=== PATIENT | female | born 1925 | race Caucasian/White ===

== ENCOUNTER 2016-04-01 00:17 | Inpatient (IN) ==
--- NOTE | 2016-04-01 00:41 | Emergency Department Note ---
Disposition Clinical Impression: Acute renal insufficiency Disposition: Admitted As Inpatient Condition: Fair Referrals: NO,PCP [Non-Partnered Physician] - Forms: ED Satisfaction Letter Time of Disposition: 03:58 Dizziness HPI - General Chief Complaint: ED Dizziness Stated Complaint: dizziness Time Seen by Provider: 04/01/16 00:27 Source: patient, EMS Limitations: age Nursing Notes Reviewed: Yes Vital Signs Reviewed: Yes - History of Present Illness HPI Narrative: 89-year-old nontoxic-appearing female was brought to the emergency department by EMS for complaints of presyncope. Patient states that just prior to arrival , she got up to go to the bathroom, when she had a sudden sensation that she "may end up falling down". She states that she had to reach out to grab a hold of the bathroom counter to keep from falling. Patient denies any chest pain, shortness of breath, palpitations, fever, chills, abdominal pain, nausea, vomiting, diarrhea. Patient denies any recent illnesses other than a recent, mild and intermittent nonproductive cough. Patient denies any headache. Patient states "I live alone and I am starting to get scared of living by myself ". 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 Timing: sudden onset Severity: mild Improves with: nothing Worsens with: nothing Associated symptoms: Reports: denies other symptoms - Related Data Home Medications Medication Instructions Recorded Confirmed Amiodarone [Cordarone] 200 mg PO DAILY #0 12/09/14 10/29/15 Aspirin Enteric Coated [Aspirin EC] 81 mg PO DAILY #0 12/09/14 10/29/15 Cholecalciferol (D-3) [Vitamin D] 1,000 unit PO DAILY #0 12/09/14 10/29/15 Docusate [Colace] 100 mg PO DAILY PRN #0 12/09/14 10/29/15 Ferrous Sulfate 325 mg PO BIDWM #0 12/09/14 10/29/15 Furosemide [Lasix] 20 mg PO DAILY #0 12/09/14 10/29/15 Potassium Chloride [K-Tab ER] 10 meq PO DAILY #0 12/09/14 10/29/15 Tiotropium [Spiriva] 18 mcg IH 0700 #0 12/09/14 10/29/15 ClonazePAM [Klonopin] 0.5 mg PO HS 10/29/15 10/29/15 Fluticasone Propionate Nasal 1 spray NS DAILY 10/29/15 10/29/15 [Flonase] Levalbuterol [Xopenex INH] 1 puff IH Q4H 10/29/15 10/29/15 Loratadine [Claritin] 10 mg PO DAILY 10/29/15 10/29/15 Losartan [Cozaar] 25 mg PO DAILY 10/29/15 10/29/15 Ranitidine HCl [Heartburn Relief] 150 mg PO DAILY 10/29/15 10/29/15 Allergies Allergy/AdvReac Type Severity Reaction Status Date / Time levofloxacin [From Levaquin] Allergy Rash Verified 10/29/15 12:38 gabapentin AdvReac Dizziness Verified 10/29/15 12:38 lisinopril AdvReac Cough Verified 10/29/15 12:38 All systems ED: reviewed and negative except as stated. Constitutional: Denies: fever, chills, weakness, weight change Cardiovascular: Denies: chest pain, palpitations, dyspnea on exertion, edema, syncope Respiratory: Denies: cough, dyspnea, wheezes, hemoptysis, stridor Gastrointestinal: Denies: abdominal pain, nausea, vomiting, diarrhea, constipation, hematemesis, melena, hematochezia Genitourinary: Denies: dysuria, frequency, hematuria, discharge Musculoskeletal: Denies: back pain, neck pain, arthralgia, myalgia Integumentary: Denies: rash, abrasion, lesions Neurological: Reports: as per HPI, other (Presyncope) Psychiatric: Denies: anxiety, depression, suicidal thoughts, homicidal thoughts , auditory hallucinations, visual hallucinations Endocrine: Denies: fatigue Hematological/Lymphatic: Denies: easy bleeding, easy bruising Past Medical History - Past Medical History Attestation: Yes The following information was validated with the patient. Source: patient Medical history: Reports: arthritis, atrial fibrillation, cardiomyopathy, CHF, COPD, GERD, GI bleed, hypertension, osteoporosis, renal disease, thyroid disease , other Surgical history: Reports: colectomy, hip replacement, orthopedic, other Psychiatric history: Reports: anxiety SCIENTIFIC INFORMATICS LEADER history: Reports: no SCIENTIFIC INFORMATICS LEADER history - Social History Smoking Status: Never smoker Smokeless Tobacco Status: No Alcohol use: Reports: none Drug use: Reports: none Physical Exam - General Limitations: age General appearance: alert - Head Head exam: atraumatic, normocephalic, normal inspection - Eye Eye exam: Present: normal appearance, PERRL, EOMI. Absent: nystagmus - ENT ENT exam: mucous membranes moist - Neck Neck exam: Present: normal inspection, full ROM, trachea midline - Chest Chest inspection: Present: normal inspection, symmetric chest wall rise - Respiratory Respiratory exam: Present: normal lung sounds bilaterally. Absent: respiratory distress, wheezes, stridor, accessory muscle use, prolonged expiratory phase - Cardiovascular Cardiovascular exam: Present: regular rate, normal rhythm, normal heart sounds - Abdominal Exam Abdominal exam: Present: soft, Non-Tender, normal bowel sounds. Absent: tenderness, distention, guarding, rebound, rigidity - Extremities Exam Extremities exam: Present: normal inspection, full ROM, pedal edema (1+ pretibial edema, 2+ pedal edema Patient states is normal for her). Absent: tenderness - Neurological Exam Neurological exam: Present: alert, oriented X3 - Psychiatric Psychiatric exam: Present: normal affect, normal mood - Skin Skin exam: Present: warm, dry, intact, normal color. Absent: rash, cyanosis, diaphoresis, erythema, pallor, mottled Course Course Narrative: I discussed this case with Dr. Crowell. Dr. Crowell had a [id number] evaluation with the patient. Dr. Crowell recommends admission to the hospitalist service. 0350: I spoke with Dr. Martinez of the hospitalist service. Dr. Martinez accepts the patient for admission for further evaluation of acute renal insufficiency. Vital Signs Temperature 99.9 F H 04/01/16 00:19 Pulse Rate 70 04/01/16 00:19 Respiratory Rate 18 04/01/16 00:19 Blood Pressure 160/60 04/01/16 00:19 O2 Sat by Pulse Oximetry 96 04/01/16 00:19 Temperature 99.9 F H 04/01/16 00:19 Pulse Rate 62 04/01/16 00:49 Respiratory Rate 18 04/01/16 00:49 Blood Pressure 164/58 04/01/16 00:49 O2 Sat by Pulse Oximetry 95 04/01/16 00:49 Oxygen Delivery Oxygen Delivery Room Air Dizziness - Medical Records Medical records reviewed: Yes I reviewed the patient's medical records. - Lab Data Lab results reviewed: Yes I reviewed the patient's lab results. Result diagrams: 04/01/16 00:40 04/01/16 00:40 Lab Results 04/01/16 04/01/16 04/01/16 Range/Units 00:40 00:40 00:40 WBC 7.2 (4.3-11.1) K/mcL RBC 4.15 (3.82-4.97) M/mcL Hgb 11.5 (11.5-15.4) g/dL Hct 36.9 (35.3-44.9) % MCV 88.9 (83.0-100.0) fL MCH 27.7 L (28.0-33.3) pg MCHC 31.2 L (31.6-35.5) g/dL RDW 15.3 H (11.5-14.5) % Plt Count 208 (140-400) K/mcL MPV 10.8 (9.4-12.4) fL Immature Gran % 0.4 (0-4) % Seg Neutrophils % 69.4 % Lymphocytes % 14.5 % Monocytes % 11.3 % Eosinophils % 3.6 % Basophils % 0.8 % Neutrophils # 5.0 (1.6-8.9) K/mcL Lymphocytes # 1.0 (0.6-4.6) K/mcL Monocytes # 0.8 (0.0-1.3) K/mcL Eosinophils # 0.3 (0.0-0.6) K/mcL Basophils # 0.1 (0.0-0.2) K/mcL PT 10.0 (9.4-12.1) Seconds INR 0.9 Sodium 144 (136-145) mEq/L Potassium 3.7 (3.5-4.5) mEq/L Chloride 106 (98-109) mEq/L Carbon Dioxide 29 (19-29) mEq/L BUN 36 H (7-20) mg/dL Creatinine 1.44 H (0.57-1.11) mg/dL Est GFR ( Amer) 42 L (> 60) Est GFR (Non-Af Amer) 34 L (> 60) BUN/Creatinine Ratio 25 (6-26) Glucose 114 H (70-99) mg/dL Calculated Osmolality 307 H (280-300) Calcium 9.1 (8.6-10.8) mg/dL Troponin I (0-0.03) ng/mL B-Natriuretic Peptide (0-100) pg/mL 04/01/16 04/01/16 Range/Units 00:40 00:40 WBC (4.3-11.1) K/mcL RBC (3.82-4.97) M/mcL Hgb (11.5-15.4) g/dL Hct (35.3-44.9) % MCV (83.0-100.0) fL MCH (28.0-33.3) pg MCHC (31.6-35.5) g/dL RDW (11.5-14.5) % Plt Count (140-400) K/mcL MPV (9.4-12.4) fL Immature Gran % (0-4) % Seg Neutrophils % % Lymphocytes % % Monocytes % % Eosinophils % % Basophils % % Neutrophils # (1.6-8.9) K/mcL Lymphocytes # (0.6-4.6) K/mcL Monocytes # (0.0-1.3) K/mcL Eosinophils # (0.0-0.6) K/mcL Basophils # (0.0-0.2) K/mcL PT (9.4-12.1) Seconds INR Sodium (136-145) mEq/L Potassium (3.5-4.5) mEq/L Chloride (98-109) mEq/L Carbon Dioxide (19-29) mEq/L BUN (7-20) mg/dL Creatinine (0.57-1.11) mg/dL Est GFR ( Amer) (> 60) Est GFR (Non-Af Amer) (> 60) BUN/Creatinine Ratio (6-26) Glucose (70-99) mg/dL Calculated Osmolality (280-300) Calcium (8.6-10.8) mg/dL Troponin I 0.02 (0-0.03) ng/mL B-Natriuretic Peptide 129 H (0-100) pg/mL - Radiology Data Radiology results reviewed: Yes I reviewed the patient's radiology results. EKG reviewed by Dr. Crowell as well Chest X-Ray 04/01/16 00:27 IMPRESSION: No acute disease. D/ / Dashawn Douglas MD / Dashawn Douglas MD Interpreting Provider: Dashawn Douglas MD Head CT 04/01/16 00:27 IMPRESSION: Grossly stable small vessel chronic ischemic changes with no acute hemorrhage or definite evidence for acute ischemia. D/ / Dashawn Douglas MD / Dashawn Douglas MD Interpreting Provider: Dashawn Douglas MD - EKG Data EKG shows normal: sinus rhythm Rate: normal
[2016-04-01 00:50] LABS: Basophils # 0.1 K/mcL (0.0-0.2); Basophils % 0.8 %; Eosinophils # 0.3 K/mcL (0.0-0.6); Eosinophils % 3.6 %; Hematocrit 36.9 % (35.3-44.9); Hemoglobin 11.5 g/dL (11.5-15.4); Immature Granulocytes % 0.4 % (0-4); Lymphocytes % 14.5 %; Mean Corpuscular HGB Conc 31.2 g/dL (31.6-35.5); Mean Corpuscular Hemoglobin 27.7 pg (28.0-33.3); Mean Corpuscular Volume 88.9 fL (83.0-100.0); Mean Platelet Volume 10.8 fL (9.4-12.4); Monocytes # 0.8 K/mcL (0.0-1.3); Monocytes % 11.3 %; Platelet Count 208 K/mcL (140-400); Red Blood Count 4.15 M/mcL (3.82-4.97); Red Cell Distribution Width 15.3 % (11.5-14.5); Segmented Neutrophils % 69.4 %
[2016-04-01 00:59] LABS: INR 0.9
[2016-04-01 01:01] LABS: Calcium 9.1 mg/dL (8.6-10.8); Potassium 3.7 mEq/L (3.5-4.5)
--- NOTE | 2016-04-01 01:55 | Emergency Department Note ---
START Narrative - START START: I examined this patient and my medical decision-making was reviewed with the CONTACT CENTER MANAGER/PA/Advanced Practice Nurse/Resident Physician. I agree with the documented findings, disposition and treatment plan as described except to the extent set forth below. ED attending note: Patient seen with nurse practitioner CHUCKIE Weaver. Please see a copy of her note for details of the H&P, evaluation, management and disposition of this patient. We independently had [id number] contact with the patient Briefly: Elderly 89-year-old female with history of paroxysmal A. fib comes in with dizziness and not feeling safe at home. Has some renal insufficiency. EKG shows good rate-controlled nothing acute troponin negative patient be admitted for observation and convalescent placement. Patient stable
[2016-04-01] MEDS ORDERED: 0.9 % Sodium Chloride 500 ML IVC ONE (03:20)
[2016-04-01] MEDS ORDERED: Naloxone 0.4 MG/ML INJ IVP PRN (05:16)
[2016-04-01] MEDS ORDERED: Ondansetron 4 MG/2 ML VIAL IVP PRN (05:16)
[2016-04-01] MEDS ORDERED: Acetaminophen 325 MG TABLET PO PRN (05:16)
[2016-04-01] MEDS ORDERED: 0.9 % Sodium Chloride 1,000 ML IVC SCH (05:30)
[2016-04-01 07:18] LABS: Bilirubin,Urine Negative (Negative); Blood,Urine Negative (Negative); Clarity,Urine Clear (Clear); Color,Urine Yellow (Yellow); Glucose,Urine (UA) Normal (Normal); Ketones,Urine Negative (Negative); Leukocyte Esterase,Urine Negative (Negative); Nitrite,Urine Negative (Negative); PH,Urine 6.5 pH Units (5.0-8.0); Protein,Urine Trace mg/dL (Neg-Trace); Specific Gravity,Urine 1.023 (1.010-1.025); Urobilinogen,Urine Normal (Normal)
[2016-04-01 07:21] LABS: Bacteria,Urine None Seen per hpf (None-Few); Hyaline Casts,Urine None Seen per lpf (None-Few); RBC,Urine 0-3 per hpf (0-3); Squamous Epithelial Cell,Urine Moderate per lpf (None-Few); WBC,Urine 0-3 per hpf (0-3)
[2016-04-01] MEDS: Tiotropium 18 MCG inhalation IH SCH (07:30)
[2016-04-01] MEDS: Levalbuterol 1 PUFF INHALER IH SCH ×4 (07:32→20:41)
--- NOTE | 2016-04-01 08:41 | Internal Med History&Physical ---
Date of Encounter: 04/01/16 Time of Encounter: 08:41 Assessment and Plan (1) Acute renal insufficiency Current visit: Yes Status: Acute The patient presented with acute kidney injury, likely secondary to poor oral intake. Additionally, the patient apparently was on Lasix at home along with ARBs. She was also complaining of osteoarthritic pain, for which she was on acetaminophen at home, she denies the use of NSAIDs. With give IV fluids, we will monitor kidney function test tomorrow in a.m. along with electrolytes. We will avoid nephrotoxic agents, we will stop, losartan and lasix Her blood pressure was elevated, we will start the patient on by mouth hydralazine. Additionally will give amlodipine. She was started on IV hydralazine when necessary. Will provide DVT prophylaxis with compressive devices, the patient refused subcutaneous heparin. The patient did not have an episode of syncope, however she is complaining of dizziness and neck pain. Had a CT of the head was essentially unremarkable. She has a history of atrial fibrillation. We will obtain an echo cardiogram to assess for any valvular abnormality along with left ventricular systolic function. A consultation with cardiology has been requested already. The patient has not had any chest pain at this point. We will continue with telemetry monitoring. Will obtain a TSH to assess thyroid function. D/W patient. (2) Accelerated hypertension Current visit: Yes Status: Acute (3) Atrial fibrillation Current visit: Yes Status: Acute Qualifiers: Atrial fibrillation type: chronic Qualified Code(s): I48.2 - Chronic atrial fibrillation (4) Hypertension Current visit: No Status: Chronic Qualifiers: Hypertension type: essential hypertension Qualified Code(s): I10 - Essential (primary) hypertension Internal Medicine - H&P: HPI Chief complaint: Dizziness Admitted From: Emergency Dept Plans for Post Hospital Care: Home History of present illness: Ms. Pires is a 89 year old female with past medical history of a fib on po amiodarone (she is not on any anticoagulation, she states that she cannot be on blood thinners because of some GI bleeding that she had in the past), hypertension, thyroid disease, COPD. She presented to our emergency department complaining of sudden onset dizziness. Patient states that last night at around 11 PM, when she was brushing her teeth, development of sudden onset of dizziness and generalized weakness. The patient states that she has never felt like this before. She was afraid to walk to the living room. She called the squad for that reason. She was evaluated in the emergency department and her blood pressure was elevated, it was 194/72, indicating that he was 131/74. Initial blood work revealed hemoglobin 11.5 and a hematocrit of 36.9. Both BUN and creatinine were elevated compared to the patient's baseline. Chest x-ray was essentially unremarkable, a CT of the head was without acute findings. The patient had an ejection fraction of 71% back in December 2014. She is not taking medication for thyroid disease. Patient denies chest pain, shortness of breath. She is feeling better during this encounter. Patient states that has not been drinking enough water lately. She was admitted for further management and workup. Past Med Surg Social Fam HX - Past Medical History Medical history: arthritis, atrial fibrillation, cardiomyopathy, CHF, COPD, GERD , GI bleed, hypertension, osteoporosis, renal disease, thyroid disease, other Psychiatric history: anxiety - Past Surgical History Surgical History: hip replacement, orthopedic, other - Social History Smoking Status: Never smoker Smokeless Tobacco Status: No Alcohol use: none Drug use: none - Family History Mother Living Status: Cause of : DC Father Living Status: Hx Family Cardiac Disorders: Yes Internal Medicine - H&P: Meds Amiodarone [Cordarone] 200 mg PO DAILY #0 12/09/14 [History] Aspirin Enteric Coated [Aspirin EC] 81 mg PO DAILY #0 12/09/14 [History] Cholecalciferol (D-3) [Vitamin D] 1,000 unit PO DAILY #0 12/09/14 [History] Docusate [Colace] 100 mg PO DAILY PRN #0 12/09/14 [History] Ferrous Sulfate 325 mg PO BIDWM #0 12/09/14 [History] Furosemide [Lasix] 20 mg PO DAILY #0 12/09/14 [History] Potassium Chloride [K-Tab ER] 10 meq PO DAILY #0 12/09/14 [History] Tiotropium [Spiriva] 18 mcg IH 0700 #0 12/09/14 [History] ClonazePAM [Klonopin] 0.5 mg PO HS 10/29/15 [History] Fluticasone Propionate Nasal [Flonase] 1 spray NS DAILY 10/29/15 [History] Levalbuterol [Xopenex INH] 1 puff IH Q4H 10/29/15 [History] Loratadine [Claritin] 10 mg PO DAILY 10/29/15 [History] Losartan [Cozaar] 25 mg PO DAILY 10/29/15 [History] Ranitidine HCl [Heartburn Relief] 150 mg PO DAILY 10/29/15 [History] Allergies levofloxacin [From Levaquin] Allergy (Verified 10/29/15 12:38) Rash gabapentin Adverse Reaction (Verified 10/29/15 12:38) Dizziness lisinopril Adverse Reaction (Verified 10/29/15 12:38) Cough All Systems PM: A 10-system review of systems was performed and is negative for pertinent findings except as documented above in the HPI. - Constitutional Constitutional: as per HPI, weakness, no chills, no fever(s), no night sweats - EENT Eyes: as per HPI, no change in vision, no discharge, no pain, no photophobia Ears: as per HPI, no ear discharge, no ear pain, no tinnitus Nose, mouth and throat: as per HPI, no dysphagia, no nasal discharge, no neck pain, no sore throat - Breasts Breasts: as per HPI - Cardiovascular Cardiovascular ROS IM: no chest pain, no diaphoresis, no dyspnea, no lightheadedness, no palpitations, no syncope - Respiratory Respiratory: no cough, no dyspnea, no wheezing, no excessive phlegm production - Gastrointestinal Gastrointestinal: no abdominal pain, no diarrhea, no hematemesis, no hematochezia, no melena, no nausea, no vomiting - Genitourinary Genitourinary: no change in urinary stream, no dysuria, no flank pain, no hematuria Menstruation: as per HPI - Musculoskeletal Musculoskeletal ROS IM: as per HPI, neck pain, no numbness, no tingling - Integumentary Integumentary IM: as per HPI, no rash, no unusual bruising - Neurological Neurological ROS: as per HPI, no confusion, no convulsions, no focal weakness, no numbness, no tingling, no tremor(s) - Psychiatric Psychiatric: as per HPI - Endocrine Endocrine IM: as per HPI - Hematologic/Lymphatic Hematologic/Lymphatic: as per HPI, no easy bruising - Allergic/Immunologic Allergic/Immunologic: as per HPI - Constitutional Vitals: Temp Pulse Resp BP Pulse Ox 98.4 F 55 16 195/65 95 04/01/16 04:54 04/01/16 05:50 04/01/16 07:33 04/01/16 05:50 04/01/16 07:33 General appearance: Present: A&O X 3, pleasant Exam: hard of hearing - Head Head exam: Present: atraumatic, normocephalic - Eye Eye exam: Present: PERRL, conjuntiva pink, sclera anicteric Pupils: Present: PERRL - Neck Neck exam general surgery: Present: supple, trachea midline. Absent: lymphadenopathy - Respiratory Respiratory exam: Present: CTAB. Absent: accessory muscle use, rales, rhonchi, wheezes - Cardiovascular Cardiovascular exam: Present: RRR, +S1, +S2. Absent: diastolic murmur, gallop, rubs, systolic murmur - GI/Abdominal GI/Abdominal exam: Present: normal bowel sounds, soft, no peritoneal signs. Absent: distended, tenderness - Extremities Exam Extremities exam: Present: warm, radial pulses palpable and symetrical. Absent : calf tenderness, cyanotic, pedal edema - Neurological Exam Neurological exam: Present: CN II-XII intact, oriented X3, no focal deficits. Absent: pronater drift, facial droop, speech deficit - Skin Skin exam: Present: dry, intact Internal Med - H&P Results - Labs CBC & Chem 7: 04/01/16 00:40 04/01/16 00:40 Labs: Cardiac Enzymes 04/01/16 Range/Units 06:20 Troponin I 0.02 (0-0.03) ng/mL Urine 04/01/16 Range/Units 07:12 Urine Color Yellow (Yellow) Urine Clarity Clear (Clear) Urine pH 6.5 (5.0-8.0) pH Units Ur Specific [place] 1.023 (1.010-1.025) Urine Protein Trace (Neg-Trace) mg/dL Urine Glucose (UA) Normal (Normal) mg/dL
--- NOTE | 2016-04-01 09:02 | Cardiology Consult Note ---
Date of Encounter: 04/01/16 Time of Encounter: 09:00 Assessment and Plan (1) Dizziness Current Visit: Yes Status: Acute Per Cardiology: No Carotid bruits appreciated. CD from 2013 showed minimal bialteral plaque bilaterally. No events noted on tele-- SR. Hx of PAF. No hypotension noted. Head CT no acute findings. Echo pending-- will s/o and have patient f/u with her primary Childcare Worker assuming echo negative. (2) Chest pain, rule out acute myocardial infarction Current Visit: Yes Status: Acute Per Cardiology: Patient actually denies having any chest pain. Reports had some nervousness and jitteriness with breathing treatment. Trops negative x 2. Negative stress test . (3) Atrial fibrillation Current Visit: Yes Status: Chronic Per Cardiology: History of paroxysmal atrial fibrillation on amiodarone being managed by stamp collector in [place]. Last seen 5-6 months ago. Sinus rhythm on telemetry with average heart rate 64. Recommend follow-up with her primary stamp collector at time of discharge. Regarding long-term anticoagulation, not on anticoagulation other than aspirin due to history of GI bleed. Patient aware of increased stroke risk. Qualifiers: Atrial fibrillation type: paroxysmal Qualified Code(s): I48.0 - Paroxysmal atrial fibrillation (4) Accelerated hypertension Current Visit: Yes Status: Acute Per Cardiology: SBP 160's to 230's. She reports normally systolic blood pressure 130s to 140s at home. Titrate medications for BP optimization. (5) Acute renal insufficiency Current Visit: Yes Status: Acute Per Cardiology: Receiving IV fluids. UA negative. Management per primary service. Discussion w patient/family: The assessment and plan as outlined above was discussed with the patient who expressed understanding and agreement. All questions were answered. Thank you for involving us in the care of your patient. Please call with any questions. History of Present Illness Consult date: 04/01/16 Requesting physician: Catrachito Altamirano Consult reason: Dizziness Chief complaint: Dizziness History of present illness: Ms. Pires is a 89 year old female with a relevant past medical history of paroxysmal atrial fibrillation on amiodarone last seen by Dr. Barrera October 2012. Reports she currently follows with cardiology in [place] Dr. Colvin. Also, relative history of esophageal stricture, COPD, hypertension, SVT, hyperlipidemia, and GI bleed with Coumadin. She reports only taken aspirin only for anticoagulation. Patient reports yesterday evening while brushing her teeth she developed dizziness and lightheadedness that lasted for about 1 minute. She denied any other symptoms with this event and reports this is new for her. She reports she felt she would have fallen if she would not of health onto the sink. Reports blood pressures at home normally run 140s over 50s. She denies any syncope or loss of consciousness. Denied any visual disturbances or headache at time of event. She indicates compliance with medications. She denies any chest pain-- reports had some nervous/jitteriness with breathing treatment in ER. She denies any dyspnea on exertion or fatigue worse from her baseline. Reports occasional swelling to lower extremities again unchanged from her baseline. Reports neck stiffness and headache today-- chronic issue over the past year. Past Med Surg Social Fam HX - Past Medical History Attestation: Yes The following information was validated with the patient. Source: patient, old records reviewed Medical history: arthritis, atrial fibrillation, cardiomyopathy, CHF, COPD, GERD , GI bleed, hypertension, osteoporosis, renal disease, thyroid disease, other Psychiatric history: anxiety - Past Surgical History Surgical History: hip replacement, orthopedic, other - Social History Smoking Status: Never smoker Smokeless Tobacco Status: No Alcohol use: none Drug use: none - Family History Mother Living Status: Cause of : [facility] Father Living Status: Hx Family Cardiac Disorders: Yes Medications and Allergies Amiodarone [Cordarone] 200 mg PO DAILY #0 12/09/14 [History] Aspirin Enteric Coated [Aspirin EC] 81 mg PO DAILY #0 12/09/14 [History] Cholecalciferol (D-3) [Vitamin D] 1,000 unit PO DAILY #0 12/09/14 [History] Docusate [Colace] 100 mg PO DAILY PRN #0 12/09/14 [History] Ferrous Sulfate 325 mg PO BIDWM #0 12/09/14 [History] Furosemide [Lasix] 20 mg PO DAILY #0 12/09/14 [History] Potassium Chloride [K-Tab ER] 10 meq PO DAILY #0 12/09/14 [History] Tiotropium [Spiriva] 18 mcg IH 0700 #0 12/09/14 [History] ClonazePAM [Klonopin] 0.5 mg PO HS 10/29/15 [History] Fluticasone Propionate Nasal [Flonase] 1 spray NS DAILY 10/29/15 [History] Levalbuterol [Xopenex INH] 1 puff IH Q4H 10/29/15 [History] Loratadine [Claritin] 10 mg PO DAILY 10/29/15 [History] Losartan [Cozaar] 25 mg PO DAILY 10/29/15 [History] Ranitidine HCl [Heartburn Relief] 150 mg PO DAILY 10/29/15 [History] Allergies levofloxacin [From Levaquin] Allergy (Verified 10/29/15 12:38) Rash gabapentin Adverse Reaction (Verified 10/29/15 12:38) Dizziness lisinopril Adverse Reaction (Verified 10/29/15 12:38) Cough All Systems Review: A 10-system review of systems was performed and is negative for pertinent findings except as documented above in the HPI. - Cardiovascular Cardiovascular: as per HPI, leg edema, lightheadedness - Neurological Neurological: dizziness Physical Examination Vital Signs, Last 4 Hours Pulse Pulse Pulse Resp BP BP BP 04/01/16 07:33 16 04/01/16 05:50 55 61 71 195/65 231/74 175/81 Pulse Ox 04/01/16 07:33 95 04/01/16 05:50 General: Conversant, No Apparent Distress, Other (frail) HEENT: Atraumatic, Normocephaly, Mucus Membranes Moist Neck: No JVD, Normal carotid pulses Cardiac: Reg Rate and Rhythm, Normal S1 and S2, No Murmur Lungs: Normal Breath Sounds, No Wheeze, Rales, Rhonchi Neuro: Alert and responsive, No focal deficits noted Abdomen: Soft, Non-Tender Skin: No rashes noted on visualized skin Musculoskeletal: No Chest Wall Tenderness Extremities: Other (Pulse 1 nonpitting edema to bilateral lower extremities) Results 04/01/16 00:40 04/01/16 00:40 Lab Results Laboratory Tests 04/01/16 04/01/16 04/01/16 00:40 00:40 00:40 INR 0.9 Creatinine 1.44 H Est GFR (Non-Af Amer) 34 L Troponin I 0.02 B-Natriuretic Peptide 04/01/16 04/01/16 00:40 06:20 INR Creatinine Est GFR (Non-Af Amer) Troponin I 0.02 B-Natriuretic Peptide 129 H ITS Impressions Chest X-Ray 04/01/16 00:27 IMPRESSION: No acute disease. D/ / Dashawn Douglas MD / Dashawn Douglas MD Interpreting Provider: Dashawn Douglas MD Head CT 04/01/16 00:27 IMPRESSION: Grossly stable small vessel chronic ischemic changes with no acute hemorrhage or definite evidence for acute ischemia. D/ / Dashawn Douglas MD / Dashawn Douglas MD Interpreting Provider: Dashawn Douglas MD Intake & Output 03/29/16 03/30/16 03/31/16 04/01/16 23:59 23:59 23:59 23:59 Intake Total 120 / 120 Output Total 600 / 600 Balance -480 / -480 Weight 47.4 kg Active Medications Acetaminophen (Tylenol) 650 mg PO Q6HR PRN PRN Reason: Mild Pain (1-3) Stop: 10/01/16 05:17 Amiodarone HCl (Cordarone) 200 mg PO DAILY [facility] Stop: 10/01/16 09:01 Amlodipine Besylate (Norvasc) 5 mg PO DAILY [facility] PRN Reason: Protocol Stop: 10/01/16 09:01 Aspirin (Aspirin Ec) 81 mg PO DAILY [facility] Stop: 10/01/16 09:01 Clonazepam (Klonopin) 0.5 mg PO HS [facility] Stop: 10/01/16 21:01 Docusate Sodium (Colace) 100 mg PO DAILY PRN; Protocol PRN Reason: Constipation Stop: 10/01/16 05:16 Docusate Sodium (Colace) 100 mg PO BID PRN PRN Reason: Constipation Stop: 10/01/16 05:17 Heparin Sodium (Porcine) (Heparin) 5,000 unit SQ Q8H [facility] Stop: 10/01/16 07:46 Hydralazine HCl (Hydralazine) 10 mg IVP Q6HR PRN PRN Reason: Hypertension Stop: 10/01/16 05:20 Last Admin: 04/01/16 07:45 Dose: 10 mg Hydralazine HCl (Hydralazine) 25 mg PO Q6HR [facility] Stop: 10/01/16 12:01 Sodium Chloride (0.9 % Sodium Chloride) 1,000 mls @ 75 mls/hr IVC .[id number] [facility] Stop: 10/01/16 05:31 Last Admin: 04/01/16 07:50 Dose: 75 mls/hr Levalbuterol HCl (Xopenex) 1 puff IH [id number] [facility] Stop: 10/01/16 08:01 Last Admin: 04/01/16 07:32 Dose: Not Given Naloxone HCl (Narcan) 0.4 mg IVP Q2MIN PRN PRN Reason: Opioid Reversal Stop: 10/01/16 05:17 Omeprazole (Prilosec) 20 mg PO DAILY [facility] Stop: 10/01/16 09:01 Ondansetron HCl (Zofran) 4 mg IVP Q8HR PRN PRN Reason: Nausea And Vomiting Stop: 10/01/16 05:17 Oxycodone HCl (Roxicodone) 5 mg PO Q6HR PRN PRN Reason: Moderate Pain (4-6) Stop: 10/01/16 05:17 Potassium Chloride (Potassium Chloride) 10 meq PO DAILY [facility] Stop: 10/01/16 09:01 Tiotropium [place] (Spiriva) 18 mcg IH 0700 [facility] PRN Reason: Protocol Stop: 10/01/16 07:01 Last Admin: 04/01/16 07:30 Dose: 18 mcg - Imaging and Cardiology Chest Xray: report reviewed Stress Test: report reviewed Echo: pending - EKG Interpretation EKG results cardiology: personally reviewed, normal ECG, sinus rhythm, no diagnostic ischemia, other (24 hr tele shows HR avg 61, SR, no events noted) Consult Discharge Plan - Plan Referrals: Herbert Oswald MD [Primary Care Provider] -
[2016-04-01] MEDS: hydrALAZINE 25 MG TABLET PO SCH ×3 (11:27→23:38)
[2016-04-01] MEDS: amLODIPine 5 MG TABLET PO SCH (11:27)
[2016-04-01] MEDS: Aspirin Enteric Coated 81 MG Tablet PO SCH (11:27)
[2016-04-01] MEDS: *HR* Amiodarone 200 MG TABLET PO SCH (11:27)
[2016-04-01] MEDS: 0.9 % Sodium Chloride 1,000 ML IVC SCH ×2 (11:28→23:39)
[2016-04-01] MEDS: *HR* Heparin 5,000 UNIT/ML VIAL SQ SCH ×3 (11:33→23:38)
--- NOTE | 2016-04-01 15:56 | Electrocardiograph Report ---
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: [facility] : 1925 Requested By: Alex Weaver Order Number: [id number] Reading MD: Elsy Nicole Measurements Intervals [place] Rate: 67 P: 91 VT: 210 QRS: -66 QRSD: 121 T: 99 QT: 459 QTc: 474 Interpretive Statements SINUS RHYTHM WITH SINUS ARRHYTHMIA WITH FIRST DEGREE AV BLOCK LEFT ANTERIOR FASCICULAR BLOCK [QRS AXIS <= -45, QR IN I, RS IN II] LEFT VENTRICULAR HYPERTROPHY AND ST-T CHANGE [VOLTAGE CRITERIA PLUS ST/T ABNORMALITY] POSSIBLE SEPTAL MYOCARDIAL INFARCTION [30 ms Q WAVE IN V1/V2], OF INDETERMINATE AGE Electronically Signed On 04-01-16 15:54:56 EST by Elsy Nicole
--- NOTE | 2016-04-01 16:39 | ECHO - Doppler Report ---
Echocardiogram Name: Viri Pires Date of Study: 04/01/2016 Date: 1925 Ht: 59.0 in Medical Record#: [id number] Age: 89 Wt: 104.0 lb Gender: Female BSA: 1.4 Order #: [id number] Location: [facility] Room #: 3B41 Reading Physician: Francisco Bronson MD, [facility] Brick Pointer: Gladis Dyer Ordering Physician: Catrachito Altamirano MD Primary Physician: None Indications: LVF assessment Impressions: Normal LV size and systolic function, LVEF 65%. Mild concentric left ventricular hypertrophy. Mild left ventricular diastolic dysfunction. Normal right ventricular structure and function. Moderate aortic regurgitation. Mild pulmonic regurgitation. Moderate pulmonary hypertension. Estimated RVSP = 53 mmHg. Left Ventricular Wall Motion: Rest Echo Findings All wall segments showed normal motion. Findings: Study Quality * Suboptimal echo windows. ECG Findings * Normal sinus rhythm. Left Ventricle * Normal LV size and systolic function, LVEF 65%. * Mild concentric left ventricular hypertrophy. * Mild left ventricular diastolic dysfunction. Right Ventricle * Normal right ventricular structure and function. Left Atrium * Normal left atrial size. Right Atrium * Normal right atrial size. Aorta * Normally sized aortic root. Pericardium * There is no pericardial effusion present. IVC * The IVC is not well evaluated. Aortic Valve * Trileaflet aortic valve. * Mildly sclerotic aortic valve leaflets. * No aortic stenosis. * Moderate aortic regurgitation. Mitral Valve * Moderate mitral annular calcification * No mitral stenosis. * Trace mitral regurgitation. Tricuspid Valve * Normal tricuspid valve structure. * No tricuspid stenosis. * Trace tricuspid regurgitation. * Moderate pulmonary hypertension. Estimated RVSP = 53 mmHg. Pulmonic Valve * Pulmonic valve not well visualized. * No pulmonic stenosis. * Mild pulmonic regurgitation. History Hypertension Family History of CAD 10/16/2013 a Previous Echo was performed. Measurements: BP: 147/ 53 2D Normal Values RVIDd: 2.90 cm IVSd: 1.30 cm 0.6 - 1.0 cm LVIDd: 3.90 cm 3.7 - 5.6 cm LVPWd: 1.20 cm 0.6 - 1.1 cm LVIDs: 2.20 cm 1.5 - 3.6 cm AO: 2.90 cm < 4.0 cm LA volume: 29 Mitral Valve Peak E:.90 m/sec Peak A:1.20 m/sec E/A Ratio:0.75 Aortic Valve AI pressure Half-time: 451.00 msec Tricuspid Valve TV Regurg Peak Grad: 48.00mmHg TV Regurg Peak Eduardo: 3.45m/sec Updated by Francisco Bronson MD, [facility] on 04/01/2016 4:31:31 PM electronically signed on 04/01/2016 4:32:32 PM with status of Final Wall Motion [place]: 1=Normal, 2=Hypokinesis, 3=Akinesis, 4=Dyskinesis, 5=Aneurysmal, 6=Hyperkinetic, X=Not Visualized (Blank)=Missing
[2016-04-01] MEDS: clonazePAM 0.5 MG TABLET PO SCH (20:27)
[2016-04-02] MEDS: Levalbuterol 1 PUFF INHALER IH SCH ×7 (00:30→23:01)
[2016-04-02 05:07] LABS: Basophils # 0.1 K/mcL (0.0-0.2); Basophils % 0.7 %; Eosinophils # 0.2 K/mcL (0.0-0.6); Eosinophils % 3.4 %; Hematocrit 30.3 % (35.3-44.9); Immature Granulocytes % 0.4 % (0-4); Lymphocytes # 0.7 K/mcL (0.6-4.6); Lymphocytes % 9.8 %; Mean Corpuscular Hemoglobin 27.5 pg (28.0-33.3); Mean Corpuscular Volume 88.6 fL (83.0-100.0); Mean Platelet Volume 11.5 fL (9.4-12.4); Monocytes # 0.8 K/mcL (0.0-1.3); Monocytes % 10.9 %; Neutrophils # 5.4 K/mcL (1.6-8.9); Platelet Count 176 K/mcL (140-400); Red Blood Count 3.42 M/mcL (3.82-4.97); Red Cell Distribution Width 15.8 % (11.5-14.5); Segmented Neutrophils % 74.8 %
[2016-04-02 05:27] LABS: Hemoglobin 9.4 g/dL (11.5-15.4)
[2016-04-02 05:45] LABS: BUN/Creatinine Ratio 27 (6-26); Carbon Dioxide 27 mEq/L (19-29); Chloride 113 mEq/L (98-109); Glucose 99 mg/dL (70-99); Osmolality,Calculated 302 (280-300); Potassium 3.9 mEq/L (3.5-4.5); Sodium 144 mEq/L (136-145); eGFR For African Americans > 60 (> 60); eGFR For Non-African Americans 59 (> 60)
[2016-04-02 05:46] LABS: Blood Urea Nitrogen 24 mg/dL (7-20)
[2016-04-02 06:08] LABS: Thyroid Stimulating Hormone 1.415 mcIU/mL (0.350-4.840)
[2016-04-02] MEDS: hydrALAZINE 25 MG TABLET PO SCH ×3 (06:18→17:14)
[2016-04-02] MEDS: Aspirin Enteric Coated 81 MG Tablet PO SCH (07:47)
[2016-04-02] MEDS: amLODIPine 5 MG TABLET PO SCH (07:47)
[2016-04-02] MEDS: *HR* Amiodarone 200 MG TABLET PO SCH (07:47)
[2016-04-02] MEDS: *HR* Heparin 5,000 UNIT/ML VIAL SQ SCH ×2 (07:53→16:04)
--- NOTE | 2016-04-02 08:13 | Event Note ---
Date of Encounter: 04/02/16 Time of Encounter: 08:15 - Cardiology Event Note Echocardiogram showed EF preserved at 65%, moderate AR, moderate pulmonary hypertension, no segmental wall motion abnormalities. Recommend follow-up in outpatient setting with her primary court recorder. Cardiology will sign off, re- consult as needed. All questions answered.
[2016-04-02] MEDS: Tiotropium 18 MCG inhalation IH SCH (08:30)
--- NOTE | 2016-04-02 13:09 | Internal Med Progress Note ---
<Diane Xie - Last Filed: 04/02/16 16:33> Date of Encounter: 04/02/16 Time of Encounter: 09:45 - Assessment and plan (1) Acute renal insufficiency Current Visit: Yes Status: Acute Assessment and plan: Presented with MARIO likely secondary to poor oral intake Was on lasix at home along with ARBs which were stopped yesterday IVF for rehydration given Creatinine improved to 0.90 today from 1.44 yesterday, will continue to monitor (2) Accelerated hypertension Current Visit: Yes Status: Acute Assessment and plan: Started on Hydralazine 25mg po Q6H, Amlodipine 5mg PO daily, IV Hydralazine 10mg Q6H prn (3) Atrial fibrillation Current Visit: Yes Status: Chronic Assessment and plan: Cardiology was consulted Echo demonstrated EF preserved at 65%, moderate AR, moderate pulmonary hypertension, no segmental wall motion abnormalities Cardiology recommended follow-up in outpatient setting with primary psychologist counseling Qualifiers: Atrial fibrillation type: paroxysmal Qualified Code(s): I48.0 - Paroxysmal atrial fibrillation (4) Hypertension Current Visit: No Status: Chronic Qualifiers: Hypertension type: essential hypertension Qualified Code(s): I10 - Essential (primary) hypertension (5) Dysphagia Current Visit: Yes Status: Acute Assessment and plan: History of esophageal stricture with subsequent esophageal dilation 1.5 months ago Pt reports difficulty swallowing solids resulting in her vomiting following meal consumption Bedside swallow completed demonstrating no difficulty with fluids Consult to speech ordered Qualifiers: Dysphagia type: unspecified Qualified Code(s): R13.10 - Dysphagia, unspecified - Subjective Interval history: Pt seated at bedside on entering the room. Pt states that when she arrived at the hospital she was having an acute onset of dizziness and weakness which she had never felt before. She denies having dizziness now. She admits to having swelling in her bilateral upper and lower extremities and attributes this to not having her lasix since she has been at the hospital. She admits to an episode of vomiting after trying to eat her last meal. Pt states that she does have a history of dysphagia due to esophageal stricture and had her esophagus dilated Dr. You at [place] about 1.5 months ago. She states that this was unsuccessful as she is still not able to eat solid foods without it getting stuck and her subsequently vomiting. She reports no difficulty with swallowing liquids. - Constitutional Vitals: Temp Pulse Resp BP Pulse Ox 97.5 F L 67 17 169/54 89 L 04/02/16 11:09 04/02/16 11:09 04/02/16 11:09 04/02/16 11:09 04/02/16 11:09 General appearance: Present: A&O X 3, pleasant - Head Head exam: Present: atraumatic, normal inspection, normocephalic - Eye Eye exam: Present: PERRL, conjuntiva pink, sclera anicteric - ENT ENT exam: Present: mucous membranes moist - Neck Neck exam general surgery: Present: supple, trachea midline - Respiratory Respiratory exam: Present: CTAB. Absent: accessory muscle use, rales, rhonchi, wheezes - Cardiovascular Cardiovascular exam: Present: RRR, +S1, +S2 - GI/Abdominal GI/Abdominal exam: Present: normal bowel sounds, soft. Absent: guarding, rebound, tenderness - Extremities Exam Extremities exam: Present: pedal edema (2+ pitting edema BLE, Edema in BUE), radial pulses palpable and symetrical. Absent: cyanotic - Neurological Exam Neurological exam: Present: alert, CN II-XII intact, oriented X3, no focal deficits - Skin Skin exam: Present: dry, intact Internal Medicine: Result - Labs CBC & Chem 7: 04/02/16 03:33 04/02/16 03:33 - ABG Interpretation ABG results: PT/INR, D-dimer PT 10.0 Seconds (9.4-12.1) 04/01/16 00:40 - VTE Documentation of Mechanical Device: Intermittent pneumatic compression device Consult Discharge Plan - Plan Referrals: Lauren Trivedi MD [Partnered Physician] - 04/14/16 10:30 am Herbert Oswald MD [Primary Care Provider] - 04/07/16 10:00 am () <Kodak Chand - Last Filed: 04/02/16 19:09> Date of Encounter: 04/02/16 - Assessment and plan (1) Hypovolemia dehydration Current Visit: Yes Status: Acute Assessment and plan: IV fluids (2) Dysphagia Current Visit: Yes Status: Acute Qualifiers: Dysphagia type: pharyngoesophageal phase Qualified Code(s): R13.14 - Dysphagia, pharyngoesophageal phase (3) Atrial fibrillation Current Visit: Yes Status: Chronic Qualifiers: Atrial fibrillation type: paroxysmal Qualified Code(s): I48.0 - Paroxysmal atrial fibrillation - Constitutional Vitals: Temp Pulse Resp BP Pulse Ox 97.8 F 63 12 129/55 98 04/02/16 18:47 04/02/16 18:47 04/02/16 18:47 04/02/16 18:47 04/02/16 18:47 Internal Medicine: Result - Labs CBC & Chem 7: 04/02/16 03:33 04/02/16 03:33 - ABG Interpretation ABG results: PT/INR, D-dimer PT 10.0 Seconds (9.4-12.1) 04/01/16 00:40 - Attending Attestation I examined this patient and my medical decision-making was reviewed with the Resident Physician. I agree with the documented findings, disposition and treatment plan as described except to the extent set forth below. Ms. Pires is currently admitted for acute onset of dizziness, MARIO and dehydration. She is moderate risk due to potential for worsening renal and neurologic dysfunction. Ms. Pires is resting comfortably. She has been having issues with her swallowing and has not been eating or drinking well. No fever or chills. No diarrhea. No CP or SOB. No odynophagia. Exam Alert. Comfortable Heart irreg No wheeze Slight edema Abd soft Current labs reviewed I/P 1. Acute dehydration 2. Dysphagia 3. Hx esophageal stricture 4. Dizziness - ? orthostatic Continue fluids tonight and reassess in AM.
[2016-04-02] MEDS: 0.9 % Sodium Chloride 1,000 ML IVC SCH (13:48)
[2016-04-03] MEDS: *HR* Heparin 5,000 UNIT/ML VIAL SQ SCH ×4 (00:08→23:05)
[2016-04-03] MEDS: clonazePAM 0.5 MG TABLET PO SCH ×2 (00:08→23:05)
[2016-04-03] MEDS: hydrALAZINE 25 MG TABLET PO SCH ×5 (00:08→23:05)
[2016-04-03 03:37] LABS: Basophils # 0.1 K/mcL (0.0-0.2); Basophils % 0.7 %; Eosinophils # 0.3 K/mcL (0.0-0.6); Eosinophils % 3.8 %; Hematocrit 30.2 % (35.3-44.9); Hemoglobin 9.3 g/dL (11.5-15.4); Immature Granulocytes % 0.5 % (0-4); Lymphocytes # 0.7 K/mcL (0.6-4.6); Lymphocytes % 9.4 %; Mean Corpuscular HGB Conc 30.8 g/dL (31.6-35.5); Mean Corpuscular Hemoglobin 28.1 pg (28.0-33.3); Mean Corpuscular Volume 91.2 fL (83.0-100.0); Mean Platelet Volume 10.8 fL (9.4-12.4); Monocytes # 0.6 K/mcL (0.0-1.3); Monocytes % 8.3 %; Neutrophils # 5.8 K/mcL (1.6-8.9); Platelet Count 167 K/mcL (140-400); Red Blood Count 3.31 M/mcL (3.82-4.97); Red Cell Distribution Width 15.9 % (11.5-14.5); Segmented Neutrophils % 77.3 %
[2016-04-03 03:55] LABS: Alanine Aminotransferase 10 Units/L (0-55); Albumin 2.3 g/dL (3.5-5.0); Alkaline Phosphatase 82 Units/L (38-126); Aspartate Amino Transferase 15 Units/L (5-34); BUN/Creatinine Ratio 24 (6-26); Bilirubin,Total 0.3 mg/dL (0.2-1.2); Blood Urea Nitrogen 24 mg/dL (7-20); Calcium 7.9 mg/dL (8.6-10.8); Carbon Dioxide 27 mEq/L (19-29); Chloride 117 mEq/L (98-109); Globulin 2.3 g/dL (2.4-3.5); Glucose 96 mg/dL (70-99); Osmolality,Calculated 302 (280-300); Potassium 4.5 mEq/L (3.5-4.5); Sodium 144 mEq/L (136-145); Total Protein 4.6 g/dL (6.0-8.3); eGFR For African Americans > 60 (> 60); eGFR For Non-African Americans 53 (> 60)
[2016-04-03] MEDS: 0.9 % Sodium Chloride 1,000 ML IVC SCH (04:02)
[2016-04-03] MEDS: Levalbuterol 1 PUFF INHALER IH SCH ×6 (04:05→23:13)
[2016-04-03] MEDS: Tiotropium 18 MCG inhalation IH SCH (08:00)
[2016-04-03] MEDS: Aspirin Enteric Coated 81 MG Tablet PO SCH (08:07)
[2016-04-03] MEDS: *HR* Amiodarone 200 MG TABLET PO SCH (08:07)
[2016-04-03] MEDS: amLODIPine 5 MG TABLET PO SCH (08:07)
--- NOTE | 2016-04-03 13:44 | Internal Med Progress Note ---
<Diane Xie - Last Filed: 04/03/16 14:48> Date of Encounter: 04/03/16 Time of Encounter: 11:55 - Assessment and plan (1) Acute renal insufficiency Current Visit: Yes Status: Acute Assessment and plan: Presented with MARIO likely secondary to poor oral intake Was on lasix at home along with ARBs which were stopped yesterday IVF for rehydration given, Creatinine 0.99 today IVF stopped today due to edema in BUE and BLE Repeat labs in am (2) Accelerated hypertension Current Visit: Yes Status: Acute Assessment and plan: Started on Hydralazine 25mg po Q6H, Amlodipine 5mg PO daily, IV Hydralazine 10mg Q6H prn (3) Atrial fibrillation Current Visit: Yes Status: Chronic Assessment and plan: Cardiology was consulted Echo demonstrated EF preserved at 65%, moderate AR, moderate pulmonary hypertension, no segmental wall motion abnormalities Cardiology recommended follow-up in outpatient setting with primary otologist Qualifiers: Atrial fibrillation type: paroxysmal Qualified Code(s): I48.0 - Paroxysmal atrial fibrillation (4) Hypertension Current Visit: No Status: Chronic Qualifiers: Hypertension type: essential hypertension Qualified Code(s): I10 - Essential (primary) hypertension (5) Dysphagia Current Visit: Yes Status: Acute Assessment and plan: History of esophageal stricture with subsequent esophageal dilation 1.5 months ago Pt reports difficulty swallowing solids resulting in her vomiting following meal consumption Bedside swallow completed demonstrating no difficulty with fluids Speech therapy recommended that patient continue current diet of regular and thin with further evaluation of esophageal dysphagia Qualifiers: Dysphagia type: pharyngoesophageal phase Qualified Code(s): R13.14 - Dysphagia, pharyngoesophageal phase - Subjective Interval history: Pt seated at bedside on entering the room. Pt states that when she arrived at the hospital she was having an acute onset of dizziness and weakness which she had never felt before. She denies having dizziness now. She admits to having swelling in her bilateral upper and lower extremities and attributes this to not having her lasix since she has been at the hospital. Pt admits to having shortness of breath with exertion, will stop fluids. - Constitutional Vitals: Temp Pulse Resp BP Pulse Ox 97.3 F L 59 14 162/72 96 04/03/16 11:52 04/03/16 11:52 04/03/16 11:52 12/29/16 11:52 04/03/16 11:52 General appearance: Present: A&O X 3, pleasant, no acute distress - Head Head exam: Present: atraumatic, normocephalic - Eye Eye exam: Present: PERRL, conjuntiva pink, sclera anicteric Pupils: Present: PERRL - Neck Neck exam general surgery: Present: supple, trachea midline. Absent: lymphadenopathy - Respiratory Respiratory exam: Present: CTAB. Absent: rales, rhonchi, wheezes - Cardiovascular Cardiovascular exam: Present: RRR, +S1, +S2. Absent: diastolic murmur, gallop, rubs, systolic murmur - GI/Abdominal GI/Abdominal exam: Present: normal bowel sounds, soft, no peritoneal signs. Absent: distended, tenderness - Extremities Exam Extremities exam: Present: pedal edema (2+ pitting edema BLE, Edema BUE), warm, radial pulses palpable and symetrical. Absent: calf tenderness, cyanotic - Neurological Exam Neurological exam: Present: CN II-XII intact, oriented X3, no focal deficits. Absent: pronater drift, facial droop, speech deficit - Skin Skin exam: Present: dry, intact Internal Medicine: Result - Labs CBC & Chem 7: 04/03/16 03:26 04/03/16 03:26 Labs: Short CBC 04/03/16 Range/Units 03:26 WBC 7.5 (4.3-11.1) K/mcL Hgb 9.3 L (11.5-15.4) g/dL Hct 30.2 L (35.3-44.9) % Plt Count 167 (140-400) K/mcL Neutrophils # 5.8 (1.6-8.9) K/mcL BMP 04/03/16 03:26 Sodium 144 Potassium 4.5 Chloride 117 H Carbon Dioxide 27 BUN 24 H Creatinine 0.99 Glucose 96 Calcium 7.9 L Liver Function 04/03/16 Range/Units 03:26 Total Bilirubin 0.3 (0.2-1.2) mg/dL AST 15 (5-34) Units/L ALT 10 (0-55) Units/L Alkaline Phosphatase 82 (38-126) Units/L Albumin 2.3 L (3.5-5.0) g/dL - ABG Interpretation ABG results: PT/INR, D-dimer PT 10.0 Seconds (9.4-12.1) 04/01/16 00:40 - VTE Documentation of Mechanical Device: Intermittent pneumatic compression device Consult Discharge Plan - Plan Referrals: Lauren Trivedi MD [Partnered Physician] - 04/14/16 10:30 am Herbert Oswald MD [Primary Care Provider] - 04/07/16 10:00 am () <Kodak Chand - Last Filed: 04/03/16 20:35> Date of Encounter: 04/03/16 - Assessment and plan (1) Hypovolemia dehydration Current Visit: Yes Status: Acute (2) Dysphagia Current Visit: Yes Status: Acute Qualifiers: Dysphagia type: pharyngoesophageal phase Qualified Code(s): R13.14 - Dysphagia, pharyngoesophageal phase (3) Atrial fibrillation Current Visit: Yes Status: Chronic Qualifiers: Atrial fibrillation type: paroxysmal Qualified Code(s): I48.0 - Paroxysmal atrial fibrillation - Constitutional Vitals: Temp Pulse Resp BP Pulse Ox 98.2 F 60 16 158/60 93 L 04/03/16 20:13 04/03/16 20:13 04/03/16 20:13 04/03/16 20:13 04/03/16 20:13 Internal Medicine: Result - Labs CBC & Chem 7: 04/03/16 03:26 04/03/16 03:26 Labs: Short CBC 04/03/16 Range/Units 03:26 WBC 7.5 (4.3-11.1) K/mcL Hgb 9.3 L (11.5-15.4) g/dL Hct 30.2 L (35.3-44.9) % Plt Count 167 (140-400) K/mcL Neutrophils # 5.8 (1.6-8.9) K/mcL BMP 04/03/16 03:26 Sodium 144 Potassium 4.5 Chloride 117 H Carbon Dioxide 27 BUN 24 H Creatinine 0.99 Glucose 96 Calcium 7.9 L Liver Function 04/03/16 Range/Units 03:26 Total Bilirubin 0.3 (0.2-1.2) mg/dL AST 15 (5-34) Units/L ALT 10 (0-55) Units/L Alkaline Phosphatase 82 (38-126) Units/L Albumin 2.3 L (3.5-5.0) g/dL - ABG Interpretation ABG results: PT/INR, D-dimer PT 10.0 Seconds (9.4-12.1) 04/01/16 00:40 - Attending Attestation I examined this patient and my medical decision-making was reviewed with the Resident Physician. I agree with the documented findings, disposition and treatment plan as described except to the extent set forth below. Ms. Pires is currently admitted for acute onset of dizziness, MARIO and dehydration. She is moderate risk due to potential for worsening renal and neurologic dysfunction. Ms. Pires is having some dyspnea today. She has had improvement in renal insufficiency but too much fluids now. Otherwise no acute issues overnight. Exam Alert. Comfortable Heart reg Lungs with some rhonchi Edema present Abd soft I/P 1. Acure renal insufficiency 2. HTN 3. Parox a fib 4. Dysphagia 5. Hx esophageal stricture Further diagnoses and plan as above
[2016-04-04] MEDS: Levalbuterol 1 PUFF INHALER IH SCH ×6 (04:48→20:20)
[2016-04-04] MEDS: hydrALAZINE 25 MG TABLET PO SCH ×4 (05:38→22:21)
[2016-04-04] MEDS: *HR* Heparin 5,000 UNIT/ML VIAL SQ SCH ×3 (05:40→22:24)
[2016-04-04 06:07] LABS: Basophils % 0.5 %; Eosinophils # 0.3 K/mcL (0.0-0.6); Eosinophils % 3.6 %; Hematocrit 30.9 % (35.3-44.9); Hemoglobin 9.4 g/dL (11.5-15.4); Immature Granulocytes % 0.4 % (0-4); Lymphocytes # 0.5 K/mcL (0.6-4.6); Lymphocytes % 5.8 %; Mean Corpuscular HGB Conc 30.4 g/dL (31.6-35.5); Mean Corpuscular Hemoglobin 27.6 pg (28.0-33.3); Mean Corpuscular Volume 90.6 fL (83.0-100.0); Mean Platelet Volume 11.2 fL (9.4-12.4); Monocytes # 0.9 K/mcL (0.0-1.3); Monocytes % 11.2 %; Neutrophils # 6.1 K/mcL (1.6-8.9); Platelet Count 156 K/mcL (140-400); Red Blood Count 3.41 M/mcL (3.82-4.97); Red Cell Distribution Width 15.7 % (11.5-14.5); Segmented Neutrophils % 78.5 %
[2016-04-04 06:17] LABS: BUN/Creatinine Ratio 20 (6-26); Blood Urea Nitrogen 20 mg/dL (7-20); Carbon Dioxide 24 mEq/L (19-29); Chloride 111 mEq/L (98-109); Glucose 108 mg/dL (70-99); Osmolality,Calculated 291 (280-300); Potassium 4.3 mEq/L (3.5-4.5); Sodium 139 mEq/L (136-145); eGFR For African Americans > 60 (> 60); eGFR For Non-African Americans 54 (> 60)
[2016-04-04] MEDS: Tiotropium 18 MCG inhalation IH SCH (07:45)
[2016-04-04] MEDS: Aspirin Enteric Coated 81 MG Tablet PO SCH (09:39)
[2016-04-04] MEDS: amLODIPine 5 MG TABLET PO SCH (09:39)
[2016-04-04] MEDS: *HR* Amiodarone 200 MG TABLET PO SCH (09:39)
[2016-04-04] MEDS: Furosemide 20 MG TABLET PO SCH (12:13)
--- NOTE | 2016-04-04 14:22 | Internal Med Progress Note ---
<Diane Xie - Last Filed: 04/04/16 15:11> Date of Encounter: 04/04/16 Time of Encounter: 09:40 - Assessment and plan (1) Acute renal insufficiency Current Visit: Yes Status: Acute Assessment and plan: Presented with MARIO likely secondary to poor oral intake Creatinine 0.98 today Pt had episode in which O2 sat dropped to 77% on room air last night, NC supplementation given and saturation improved, Scattered wheezes throughout on exam Started back on home dose of lasix 20mg po daily Continue to monitor (2) Accelerated hypertension Current Visit: Yes Status: Acute Assessment and plan: Started on Hydralazine 25mg po Q6H, Amlodipine 5mg PO daily, IV Hydralazine 10mg Q6H prn (3) Atrial fibrillation Current Visit: Yes Status: Chronic Assessment and plan: Cardiology was consulted Echo demonstrated EF preserved at 65%, moderate AR, moderate pulmonary hypertension, no segmental wall motion abnormalities Cardiology recommended follow-up in outpatient setting with primary 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 Qualifiers: Atrial fibrillation type: paroxysmal Qualified Code(s): I48.0 - Paroxysmal atrial fibrillation (4) Hypertension Current Visit: No Status: Chronic Qualifiers: Hypertension type: essential hypertension Qualified Code(s): I10 - Essential (primary) hypertension (5) Dysphagia Current Visit: Yes Status: Acute Assessment and plan: History of esophageal stricture with subsequent esophageal dilation 1.5 months ago Pt reports difficulty swallowing solids resulting in her vomiting following meal consumption Bedside swallow completed demonstrating no difficulty with fluids Speech therapy recommended that patient continue current diet of regular and thin with further evaluation of esophageal dysphagia Qualifiers: Dysphagia type: pharyngoesophageal phase Qualified Code(s): R13.14 - Dysphagia, pharyngoesophageal phase - Subjective Interval history: Pt resting in bed upon examination. She denies having dizziness now. She admits to having swelling in her bilateral upper and lower extremities. She is noticed to have conversational dyspnea today. Pt had an episode last night in which her O2 sat fell to 77%. She was placed back on NC supplementation with improvement. She admits to feeling more tired and short of breath than her baseline. Recommendation from PT/OT is Home Health upon discharge. - Constitutional Vitals: Temp Pulse Resp BP Pulse Ox 98.0 F 69 16 173/54 92 L 04/04/16 11:04 04/04/16 11:04 04/04/16 11:04 04/04/16 11:04 04/04/16 11:04 General appearance: Present: A&O X 3, pleasant, no acute distress - Head Head exam: Present: atraumatic, normocephalic - Eye Eye exam: Present: PERRL, conjuntiva pink, sclera anicteric Pupils: Present: PERRL - Neck Neck exam general surgery: Present: supple, trachea midline. Absent: lymphadenopathy - Respiratory Respiratory exam: Present: CTAB, wheezes (Throughout bilateral lung morales) Additional comments: Conversational dyspnea when questioning and examining patient - Cardiovascular Cardiovascular exam: Present: RRR, +S1, +S2. Absent: diastolic murmur, gallop, rubs, systolic murmur - GI/Abdominal GI/Abdominal exam: Present: normal bowel sounds, soft, no peritoneal signs. Absent: distended, tenderness - Extremities Exam Extremities exam: Present: pedal edema (2+ pitting edema BLE, Edema BUE), warm, radial pulses palpable and symetrical. Absent: calf tenderness, cyanotic - Neurological Exam Neurological exam: Present: alert, CN II-XII intact, oriented X3, no focal deficits. Absent: pronater drift, facial droop, speech deficit - Skin Skin exam: Present: dry, intact Internal Medicine: Result - Labs CBC & Chem 7: 04/04/16 04:42 04/04/16 04:42 Labs: Short CBC 04/04/16 Range/Units 04:42 WBC 7.7 (4.3-11.1) K/mcL Hgb 9.4 L (11.5-15.4) g/dL Hct 30.9 L (35.3-44.9) % Plt Count 156 (140-400) K/mcL Neutrophils # 6.1 (1.6-8.9) K/mcL BMP 04/04/16 04:42 Sodium 139 Potassium 4.3 Chloride 111 H Carbon Dioxide 24 BUN 20 Creatinine 0.98 Glucose 108 H Calcium 8.0 L - ABG Interpretation ABG results: PT/INR, D-dimer PT 10.0 Seconds (9.4-12.1) 04/01/16 00:40 - VTE Documentation of Mechanical Device: Intermittent pneumatic compression device Consult Discharge Plan - Plan Referrals: Lauren Trivedi MD [Partnered Physician] - 04/14/16 10:30 am Herbert Oswald MD [Primary Care Provider] - 04/07/16 10:00 am () <Kodak Chand - Last Filed: 04/04/16 18:50> Date of Encounter: 04/04/16 - Assessment and plan (1) Acute respiratory failure with hypoxia Current Visit: Yes Status: Acute Assessment and plan: CXR, oxygen. Diurese. Recheck tomorrow. (2) Hypovolemia dehydration Current Visit: Yes Status: Resolved (3) Dysphagia Current Visit: Yes Status: Acute Qualifiers: Dysphagia type: pharyngoesophageal phase Qualified Code(s): R13.14 - Dysphagia, pharyngoesophageal phase (4) Atrial fibrillation Current Visit: Yes Status: Chronic Qualifiers: Atrial fibrillation type: paroxysmal Qualified Code(s): I48.0 - Paroxysmal atrial fibrillation - Constitutional Vitals: Temp Pulse Resp BP Pulse Ox 97.5 F L 69 18 190/62 92 L 04/04/16 15:22 04/04/16 15:22 04/04/16 15:22 04/04/16 15:22 04/04/16 15:22 Internal Medicine: Result - Labs CBC & Chem 7: 04/04/16 04:42 04/04/16 04:42 Labs: Short CBC 04/04/16 Range/Units 04:42 WBC 7.7 (4.3-11.1) K/mcL Hgb 9.4 L (11.5-15.4) g/dL Hct 30.9 L (35.3-44.9) % Plt Count 156 (140-400) K/mcL Neutrophils # 6.1 (1.6-8.9) K/mcL BMP 04/04/16 04:42 Sodium 139 Potassium 4.3 Chloride 111 H Carbon Dioxide 24 BUN 20 Creatinine 0.98 Glucose 108 H Calcium 8.0 L - ABG Interpretation ABG results: PT/INR, D-dimer PT 10.0 Seconds (9.4-12.1) 04/01/16 00:40 - Attending Attestation I examined this patient and my medical decision-making was reviewed with the Resident Physician. I agree with the documented findings, disposition and treatment plan as described except to the extent set forth below. Ms. Pires is currently admitted for acute renal insufficiency. She is now hypoxic and dyspneic. She is moderate to high risk due to respiratory symptoms. Ms. Pires is resting comfortably at this time. She will not consistently wear her oxygen and her sat is in 70s at times. Denies pain. Has been up some. No GI symptoms. Exam alert. No distress Heart reg Lungs with crackles Abd soft Edema present I/P 1. Acute hypoxic resp failure - ? fluid overload vs other. Check CXR and diurese. 2. MARIO Further diagnoses and plan as above.
[2016-04-04] MEDS: clonazePAM 0.5 MG TABLET PO SCH (22:22)
[2016-04-05] MEDS: Levalbuterol 1 PUFF INHALER IH SCH ×4 (00:38→11:37)
[2016-04-05 03:35] LABS: Basophils % 0.3 %; Eosinophils # 0.3 K/mcL (0.0-0.6); Eosinophils % 3.5 %; Hematocrit 31.5 % (35.3-44.9); Hemoglobin 9.8 g/dL (11.5-15.4); Immature Granulocytes % 0.4 % (0-4); Lymphocytes # 0.7 K/mcL (0.6-4.6); Lymphocytes % 6.7 %; Mean Corpuscular HGB Conc 31.1 g/dL (31.6-35.5); Mean Corpuscular Hemoglobin 27.8 pg (28.0-33.3); Mean Corpuscular Volume 89.2 fL (83.0-100.0); Mean Platelet Volume 11.3 fL (9.4-12.4); Monocytes # 1.2 K/mcL (0.0-1.3); Monocytes % 11.9 %; Neutrophils # 7.5 K/mcL (1.6-8.9); Platelet Count 178 K/mcL (140-400); Red Blood Count 3.53 M/mcL (3.82-4.97); Red Cell Distribution Width 15.4 % (11.5-14.5); Segmented Neutrophils % 77.2 %
[2016-04-05 03:45] LABS: BUN/Creatinine Ratio 21 (6-26); Blood Urea Nitrogen 19 mg/dL (7-20); Calcium 7.8 mg/dL (8.6-10.8); Carbon Dioxide 23 mEq/L (19-29); Chloride 110 mEq/L (98-109); Glucose 98 mg/dL (70-99); Osmolality,Calculated 292 (280-300); Potassium 3.8 mEq/L (3.5-4.5); Sodium 140 mEq/L (136-145); eGFR For African Americans > 60 (> 60); eGFR For Non-African Americans 59 (> 60)
[2016-04-05] MEDS: hydrALAZINE 25 MG TABLET PO SCH ×3 (06:19→15:59)
[2016-04-05] MEDS: *HR* Amiodarone 200 MG TABLET PO SCH (08:12)
[2016-04-05] MEDS: Aspirin Enteric Coated 81 MG Tablet PO SCH (08:12)
[2016-04-05] MEDS: Furosemide 20 MG TABLET PO SCH (08:12)
[2016-04-05] MEDS: amLODIPine 5 MG TABLET PO SCH (08:12)
[2016-04-05] MEDS: *HR* OxyCODONE Immed Rel 5 MG TABLET PO PRN ×4 (08:13→17:33)
[2016-04-05] MEDS: Tiotropium 18 MCG inhalation IH SCH (08:23)
--- NOTE | 2016-04-05 09:28 | Internal Med Progress Note ---
<Diane Xie - Last Filed: 04/05/16 09:26> Date of Encounter: 04/05/16 Time of Encounter: 08:30 - Assessment and plan (1) Pneumonia Current Visit: Yes Status: Acute Assessment and plan: Due to increase in shortness of breath and episodes of decreased O2 saturation, CXR was done yesterday CXR demonstrated Hazy airspace disease in the right lower lobe suggestive of pneumonia With history of dysphagia, it is possible that this is aspiration in nature Started antibiotic treatment with Unasyn today Continuous pulse oximetry ordered Qualifiers: Pneumonia type: due to unspecified organism Laterality: right Lung location: lower lobe of lung Qualified Code(s): J18.9 - Pneumonia, unspecified organism (2) Acute renal insufficiency Current Visit: Yes Status: Acute Assessment and plan: Presented with MARIO likely secondary to poor oral intake Creatinine 0.90 today On home dose of lasix 20mg po daily Continue to monitor (3) Accelerated hypertension Current Visit: Yes Status: Acute Assessment and plan: Started on Hydralazine 25mg po Q6H, Amlodipine 5mg PO daily, IV Hydralazine 10mg Q6H prn (4) Atrial fibrillation Current Visit: Yes Status: Chronic Assessment and plan: Cardiology was consulted Echo demonstrated EF preserved at 65%, moderate AR, moderate pulmonary hypertension, no segmental wall motion abnormalities Cardiology recommended follow-up in outpatient setting with primary lead burner apprentice Qualifiers: Atrial fibrillation type: paroxysmal Qualified Code(s): I48.0 - Paroxysmal atrial fibrillation (5) Hypertension Current Visit: No Status: Chronic Qualifiers: Hypertension type: essential hypertension Qualified Code(s): I10 - Essential (primary) hypertension (6) Dysphagia Current Visit: Yes Status: Acute Assessment and plan: History of esophageal stricture with subsequent esophageal dilation 1.5 months ago Pt reports difficulty swallowing solids resulting in her vomiting following meal consumption Bedside swallow completed demonstrating no difficulty with fluids Speech therapy recommended that patient continue current diet of regular and thin with further evaluation of esophageal dysphagia Qualifiers: Dysphagia type: pharyngoesophageal phase Qualified Code(s): R13.14 - Dysphagia, pharyngoesophageal phase (7) DVT prophylaxis Current Visit: Yes Status: Acute Assessment and plan: Heparin SQ Q8H for DVT prophylaxis - Subjective Interval history: Pt resting in bed upon examination. She denies having dizziness now. She admits to improvement with the swelling in her BUE, BLE. She is noticed to have conversational dyspnea. She admits to feeling more tired and short of breath than her baseline. Recommendation from PT/OT is Home Health upon discharge. - Constitutional Vitals: Temp Pulse Resp BP Pulse Ox 97.9 F 76 16 175/70 92 L 04/05/16 08:47 04/05/16 08:47 04/05/16 08:47 04/05/16 08:47 04/05/16 08:47 General appearance: Present: A&O X 3, pleasant, no acute distress - Head Head exam: Present: atraumatic, normocephalic - Eye Eye exam: Present: PERRL, conjuntiva pink, sclera anicteric Pupils: Present: PERRL - Neck Neck exam general surgery: Present: supple, trachea midline. Absent: lymphadenopathy - Respiratory Respiratory exam: Present: wheezes (Scattered throughout, Worse on Right than left) - Cardiovascular Cardiovascular exam: Present: RRR, +S1, +S2. Absent: diastolic murmur, gallop, rubs, systolic murmur - GI/Abdominal GI/Abdominal exam: Present: normal bowel sounds, soft, no peritoneal signs. Absent: distended, tenderness - Extremities Exam Extremities exam: Present: pedal edema (2+ pitting edema BLE), warm, radial pulses palpable and symetrical. Absent: calf tenderness, cyanotic - Neurological Exam Neurological exam: Present: alert, CN II-XII intact, oriented X3, no focal deficits. Absent: pronater drift, facial droop, speech deficit - Skin Skin exam: Present: dry, intact Internal Medicine: Result - Labs CBC & Chem 7: 04/05/16 03:20 04/05/16 03:20 Labs: Short CBC 04/05/16 Range/Units 03:20 WBC 9.7 (4.3-11.1) K/mcL Hgb 9.8 L (11.5-15.4) g/dL Hct 31.5 L (35.3-44.9) % Plt Count 178 (140-400) K/mcL Neutrophils # 7.5 (1.6-8.9) K/mcL BMP 04/05/16 03:20 Sodium 140 Potassium 3.8 Chloride 110 H Carbon Dioxide 23 BUN 19 Creatinine 0.90 Glucose 98 Calcium 7.8 L - ABG Interpretation ABG results: PT/INR, D-dimer PT 10.0 Seconds (9.4-12.1) 04/01/16 00:40 - Impressions Impressions Chest X-Ray 04/04/16 14:56 IMPRESSION: Hazy airspace disease right lower lobe suggesting pneumonia D/ / Horacio Platt MD / Horacio Platt MD Interpreting Provider: Horacio Platt MD - VTE Documentation of Mechanical Device: Intermittent pneumatic compression device Consult Discharge Plan - Plan Referrals: Lauren Trivedi MD [Partnered Physician] - 04/14/16 10:30 am Herbert Oswald MD [Primary Care Provider] - 04/07/16 10:00 am () <Kodak Chand - Last Filed: 04/05/16 17:31> Date of Encounter: 04/05/16 - Assessment and plan (1) Acute respiratory failure with hypoxia Current Visit: Yes Status: Acute (2) Pneumonia Current Visit: Yes Status: Acute Qualifiers: Pneumonia type: aspiration pneumonia Aspiration pneumonia type: due to regurgitated food Laterality: right Lung location: lower lobe of lung Qualified Code(s): J69.0 - Pneumonitis due to inhalation of food and vomit (3) Hypovolemia dehydration Current Visit: Yes Status: Resolved (4) Dysphagia Current Visit: Yes Status: Acute Qualifiers: Dysphagia type: pharyngoesophageal phase Qualified Code(s): R13.14 - Dysphagia, pharyngoesophageal phase (5) Atrial fibrillation Current Visit: Yes Status: Chronic Qualifiers: Atrial fibrillation type: paroxysmal Qualified Code(s): I48.0 - Paroxysmal atrial fibrillation - Constitutional Vitals: Temp Pulse Resp BP Pulse Ox 97.5 F L 60 16 142/84 97 04/05/16 16:10 04/05/16 16:10 04/05/16 16:10 04/05/16 16:10 04/05/16 16:10 Internal Medicine: Result - Labs CBC & Chem 7: 04/05/16 03:20 04/05/16 03:20 Labs: Short CBC 04/05/16 Range/Units 03:20 WBC 9.7 (4.3-11.1) K/mcL Hgb 9.8 L (11.5-15.4) g/dL Hct 31.5 L (35.3-44.9) % Plt Count 178 (140-400) K/mcL Neutrophils # 7.5 (1.6-8.9) K/mcL BMP 04/05/16 03:20 Sodium 140 Potassium 3.8 Chloride 110 H Carbon Dioxide 23 BUN 19 Creatinine 0.90 Glucose 98 Calcium 7.8 L - ABG Interpretation ABG results: PT/INR, D-dimer PT 10.0 Seconds (9.4-12.1) 04/01/16 00:40 - Impressions Impressions Chest X-Ray 04/04/16 14:56 IMPRESSION: Hazy airspace disease right lower lobe suggesting pneumonia D/ / Horacio Platt MD / Horacio Platt MD Interpreting Provider: Horacio Platt MD - Attending Attestation I examined this patient and my medical decision-making was reviewed with the Resident Physician. I agree with the documented findings, disposition and treatment plan as described except to the extent set forth below. Ms Pires is currently admitted for acute renal failure and pneumonia. She remains moderate to high risk due to potential worsening respiratory status. Ms. Pires is still hypoxic off oxygen. She has a cough and congestion as well. No CP. Appetite OK as well. Exam Alert. Comfortable Heart reg Lungs with rhonchi throughout No edema I/P 1. Acute hypoxic resp failure 2. Asp pna 3. MARIO Further diagnoses and plan as above.
[2016-04-05] MEDS: *HR* Heparin 5,000 UNIT/ML VIAL SQ SCH ×2 (11:06→14:57)
[2016-04-05] MEDS: Ampicillin/Sulbactam 3,000 MG in 0.9 % Sodium Chloride Mini Bag 100 ML IVPB SCH ×2 (11:16→15:57)
[2016-04-05] MEDS: Levalbuterol Neb 1.25 MG/3 ML IH SCH ×3 (13:17→20:51)
[2016-04-05] MEDS: clonazePAM 0.5 MG TABLET PO SCH (20:09)
[2016-04-06] MEDS: Levalbuterol Neb 1.25 MG/3 ML IH SCH ×7 (00:10→23:02)
[2016-04-06] MEDS: *HR* Heparin 5,000 UNIT/ML VIAL SQ SCH ×3 (00:46→14:01)
[2016-04-06] MEDS: hydrALAZINE 25 MG TABLET PO SCH ×4 (00:46→17:12)
[2016-04-06] MEDS: Ampicillin/Sulbactam 3,000 MG in 0.9 % Sodium Chloride Mini Bag 100 ML IVPB SCH ×3 (00:47→17:13)
[2016-04-06 05:37] LABS: Basophils % 0.5 %; Eosinophils # 0.3 K/mcL (0.0-0.6); Eosinophils % 4.1 %; Hemoglobin 8.9 g/dL (11.5-15.4); Immature Granulocytes % 0.6 % (0-4); Lymphocytes # 0.5 K/mcL (0.6-4.6); Lymphocytes % 6.7 %; Mean Corpuscular HGB Conc 30.7 g/dL (31.6-35.5); Mean Corpuscular Hemoglobin 27.3 pg (28.0-33.3); Mean Platelet Volume 11.2 fL (9.4-12.4); Monocytes # 0.9 K/mcL (0.0-1.3); Monocytes % 11.7 %; Platelet Count 154 K/mcL (140-400); Red Blood Count 3.26 M/mcL (3.82-4.97); Red Cell Distribution Width 15.3 % (11.5-14.5); Segmented Neutrophils % 76.4 %
[2016-04-06 05:49] LABS: BUN/Creatinine Ratio 23 (6-26); Blood Urea Nitrogen 22 mg/dL (7-20); Calcium 7.8 mg/dL (8.6-10.8); Carbon Dioxide 29 mEq/L (19-29); Chloride 107 mEq/L (98-109); Glucose 103 mg/dL (70-99); Osmolality,Calculated 294 (280-300); Potassium 3.6 mEq/L (3.5-4.5); Sodium 140 mEq/L (136-145); eGFR For African Americans > 60 (> 60); eGFR For Non-African Americans 56 (> 60)
[2016-04-06] MEDS: amLODIPine 5 MG TABLET PO SCH (07:53)
[2016-04-06] MEDS: *HR* OxyCODONE Immed Rel 5 MG TABLET PO PRN ×4 (07:54→17:12)
[2016-04-06] MEDS: *HR* Amiodarone 200 MG TABLET PO SCH (07:54)
[2016-04-06] MEDS: Aspirin Enteric Coated 81 MG Tablet PO SCH (07:54)
[2016-04-06] MEDS: Furosemide 20 MG TABLET PO SCH (07:55)
[2016-04-06] MEDS: Tiotropium 18 MCG inhalation IH SCH (09:12)
--- NOTE | 2016-04-06 18:56 | Internal Med Progress Note ---
Date of Encounter: 04/06/16 Time of Encounter: 14:00 - Assessment and plan (1) Acute respiratory failure with hypoxia Current Visit: Yes Status: Acute Assessment and plan: Slowly improving. Continue supplemental oxygen and incentive spirometry. (2) Pneumonia Current Visit: Yes Status: Acute Assessment and plan: Continue IV abx as ordered. Seems to be doing a little better since started. Qualifiers: Pneumonia type: aspiration pneumonia Aspiration pneumonia type: due to regurgitated food Laterality: right Lung location: lower lobe of lung Qualified Code(s): J69.0 - Pneumonitis due to inhalation of food and vomit (3) Hypovolemia dehydration Current Visit: Yes Status: Resolved Assessment and plan: IV fluids stopped. Seems euvolemic now. (4) Dysphagia Current Visit: Yes Status: Acute Assessment and plan: History of esophageal stricture with subsequent esophageal dilation 1.5 months ago Pt reports difficulty swallowing solids resulting in her vomiting following meal consumption Bedside swallow completed demonstrating no difficulty with fluids Speech therapy recommended that patient continue current diet of regular and thin with further evaluation of esophageal dysphagia Qualifiers: Dysphagia type: pharyngoesophageal phase Qualified Code(s): R13.14 - Dysphagia, pharyngoesophageal phase (5) Atrial fibrillation Current Visit: Yes Status: Chronic Assessment and plan: Cardiology was consulted Echo demonstrated EF preserved at 65%, moderate AR, moderate pulmonary hypertension, no segmental wall motion abnormalities Cardiology recommended follow-up in outpatient setting with primary cnc specialist Qualifiers: Atrial fibrillation type: paroxysmal Qualified Code(s): I48.0 - Paroxysmal atrial fibrillation (6) Hypertension Current Visit: No Status: Chronic Assessment and plan: Continue meds. Qualifiers: Hypertension type: essential hypertension Qualified Code(s): I10 - Essential (primary) hypertension (7) Anemia, chronic disease Current Visit: Yes Status: Acute Assessment and plan: Follow. - Subjective Interval history: Ms. Pires is currently admitted for acute hypoxic resp failure due to pneumonia. She is moderate to high risk due to potential for acute worsening of her respiratory status. Ms. Pires is up in the chair. She seems to be starting to improve. Denies CP. Has been wheezing a lot. No fever or chills but does have cough. Wants to get up and walk around. - Constitutional Vitals: Temp Pulse Resp BP Pulse Ox 98.1 F 69 14 151/52 98 04/06/16 15:00 04/06/16 15:00 04/06/16 16:26 04/06/16 15:00 04/06/16 16:26 General appearance: Present: A&O X 3, pleasant, no acute distress - Head Head exam: Present: normocephalic - Eye Eye exam: Present: conjuntiva pink - ENT ENT exam: Present: mucous membranes moist - Respiratory Respiratory exam: Present: decreased breath sounds, wheezes (Scant wheeze today. ) - Cardiovascular Cardiovascular exam: Present: RRR, systolic murmur. Absent: tachycardia - GI/Abdominal GI/Abdominal exam: Present: soft. Absent: mass, tenderness - Extremities Exam Extremities exam: Present: pedal edema, warm - Neurological Exam Neurological exam: Present: alert, oriented X3, no focal deficits - Skin Skin exam: Present: warm. Absent: rash Internal Medicine: Result - Labs CBC & Chem 7: 04/06/16 05:20 04/06/16 05:20 Labs: Short CBC 04/06/16 Range/Units 05:20 WBC 7.9 (4.3-11.1) K/mcL Hgb 8.9 L (11.5-15.4) g/dL Hct 29.0 L (35.3-44.9) % Plt Count 154 (140-400) K/mcL Neutrophils # 6.0 (1.6-8.9) K/mcL BMP 04/06/16 05:20 Sodium 140 Potassium 3.6 Chloride 107 Carbon Dioxide 29 BUN 22 H Creatinine 0.94 Glucose 103 H Calcium 7.8 L - ABG Interpretation ABG results: PT/INR, D-dimer PT 10.0 Seconds (9.4-12.1) 04/01/16 00:40 - VTE Documentation of Mechanical Device: Intermittent pneumatic compression device Consult Discharge Plan - Plan Referrals: Lauren Trivedi MD [Partnered Physician] - 04/14/16 10:30 am Herbert Oswald MD [Primary Care Provider] - 04/07/16 10:00 am ()
[2016-04-06] MEDS: clonazePAM 0.5 MG TABLET PO SCH (21:49)
[2016-04-07] MEDS: hydrALAZINE 25 MG TABLET PO SCH ×5 (00:29→23:53)
[2016-04-07] MEDS: *HR* Heparin 5,000 UNIT/ML VIAL SQ SCH ×5 (00:32→23:56)
[2016-04-07] MEDS: Levalbuterol Neb 1.25 MG/3 ML IH SCH ×6 (03:31→23:28)
[2016-04-07] MEDS: Ampicillin/Sulbactam 3,000 MG in 0.9 % Sodium Chloride Mini Bag 100 ML IVPB SCH (05:30)
[2016-04-07] MEDS: amLODIPine 5 MG TABLET PO SCH (08:00)
[2016-04-07] MEDS: *HR* Amiodarone 200 MG TABLET PO SCH (08:00)
[2016-04-07] MEDS: Furosemide 20 MG TABLET PO SCH (08:00)
[2016-04-07] MEDS: Aspirin Enteric Coated 81 MG Tablet PO SCH (08:00)
[2016-04-07] MEDS: Tiotropium 18 MCG inhalation IH SCH (08:17)
--- NOTE | 2016-04-07 15:12 | Discharge Summary ---
Date of Encounter: 04/07/16 Time of Encounter: 12:00 - Discharge Diagnosis (1) Acute respiratory failure with hypoxia Priority: Primary Status: Acute Comments: Due to aspiration pneumonia. Improving with abx treatment. (2) Pneumonia Priority: Secondary Status: Acute Qualifiers: Pneumonia type: aspiration pneumonia Aspiration pneumonia type: due to regurgitated food Laterality: right Lung location: lower lobe of lung Qualified Code(s): J69.0 - Pneumonitis due to inhalation of food and vomit (3) Hypovolemia dehydration Priority: Secondary Status: Resolved (4) Dysphagia Priority: Secondary Status: Acute Qualifiers: Dysphagia type: pharyngoesophageal phase Qualified Code(s): R13.14 - Dysphagia, pharyngoesophageal phase (5) Atrial fibrillation Priority: Secondary Status: Chronic Qualifiers: Atrial fibrillation type: paroxysmal Qualified Code(s): I48.0 - Paroxysmal atrial fibrillation (6) Hypertension Priority: Secondary Status: Chronic Qualifiers: Hypertension type: essential hypertension Qualified Code(s): I10 - Essential (primary) hypertension (7) Anemia, chronic disease Priority: Secondary Status: Acute - Discharge Medications Prescriptions: OxyCODONE Immed Rel [Roxicodone 5 MG] 5 mg PO Q6HR PRN #5 tablet PRN Reason: Moderate Pain (4-6) ClonazePAM [Klonopin] 0.5 mg PO HS #3 tablet Home Medications: Amiodarone [Cordarone] 200 mg PO DAILY #0 12/09/14 [History] Docusate [Colace] 100 mg PO DAILY PRN #0 12/09/14 [History] Ferrous Sulfate 325 mg PO BID #0 12/09/14 [History] Furosemide [Lasix] 20 mg PO DAILY #0 12/09/14 [History] Potassium Chloride [K-Tab ER] 10 meq PO DAILY #0 12/09/14 [History] Fluticasone Propionate Nasal [Flonase] 1 spray NS DAILY 10/29/15 [History] Levalbuterol [Xopenex INH] 1 puff IH Q4H 10/29/15 [History] Loratadine [Claritin] 10 mg PO DAILY 10/29/15 [History] Losartan [Cozaar] 50 mg PO DAILY 10/29/15 [History] Ranitidine HCl [Heartburn Relief] 150 mg PO DAILY 10/29/15 [History] Amlodipine [Norvasc] 5 mg PO DAILY tablet 04/07/16 [Rx] Amoxicillin/Clavulanate [Augmentin] 875 mg PO BIDWM tablet 04/07/16 [Rx] Aspirin Enteric Coated [Aspirin EC] 81 mg PO DAILY tablet. 04/07/16 [Rx] ClonazePAM [Klonopin] 0.5 mg PO HS #3 tablet 04/07/16 [Rx] OxyCODONE Immed Rel [Roxicodone 5 MG] 5 mg PO Q6HR PRN #5 tablet 04/07/16 [Rx] Tiotropium [Spiriva] 18 mcg IH 0700 inh 04/07/16 [Rx] Allergies/Adverse Reactions: Allergies azithromycin [From Zmax] Allergy (Verified 04/01/16 13:54) See Comments UNSURE OF REACTION- LISTED ON PATIENT'S [facility] APPOINTMENT levofloxacin [From Levaquin] Allergy (Verified 10/29/15 12:38) Rash gabapentin Adverse Reaction (Verified 10/29/15 12:38) Dizziness lisinopril Adverse Reaction (Verified 10/29/15 12:38) Cough Date of admission: 04/02/16 08:36 Primary care physician: Herbert Oswald MD Consults: 04/02/16 14:40 Consult to Speech Therapy [CONS] Routine Comment: Evaluate, develop and implement POC Reason for Consult: Dysphagia, unable to swallow solids Call Completed: No Discharging clinician: Kodak Chand Anticipated date of discharge: 04/07/16 - Patient Status Disposition: Transfer SNF Condition: Good Functional capacity at discharge: uses cane/walker Overall status at discharge: patient is progressing back to baseline - Discharge Instructions Follow Up With: Lauren Trivedi MD [Partnered Physician] - 04/14/16 10:30 am - Diet and Activity Activity: as per physical therapy Diet: low salt diet Hospital course: Ms. Pires is a 89 year old female presented to ED with decreased oral intake. She also was taking Lasix at home and found to have MARIO on admission. She was subsequently admitted for further evaluation an treatment. Ms. Pires was admitted to [facility]. She was started on IV fluids. She had slow improvement in her clinical status. Her other big issue was problems with nausea and vomiting due to dysphagia related to esophageal stricture. Her dyspnea worsened and IV fluids were held. She continued to have high oxygen requirements and CXR showed pneumonia consistent with aspiration. She was started on IV abx with improvement. Initially it was recommended that she be discharged home with home care but with the development of the pneumonia and continued need of oxygen it was felt she would benefit from SNF placement. - Time Spent with Patient Total time spent providing and/or coordinating discharge services: 38min - Constitutional Vitals: Temp Pulse Resp BP Pulse Ox 97.9 F 64 17 134/55 97 04/07/16 11:21 04/07/16 11:21 04/07/16 11:21 04/07/16 11:21 04/07/16 11:21 General appearance: Present: A&O X 3, pleasant, no acute distress - Head Head exam: Present: normocephalic - Eye Eye exam: Present: EOMI, conjuntiva pink - ENT ENT exam: Present: mucous membranes dry - Respiratory Respiratory exam: Present: decreased breath sounds, CTAB - Cardiovascular Cardiovascular exam: Present: RRR. Absent: tachycardia - GI/Abdominal GI/Abdominal exam: Present: soft. Absent: mass, tenderness - Extremities Exam Extremities exam: Present: warm. Absent: pedal edema - Neurological Exam Neurological exam: Present: alert, oriented X3, no focal deficits - Psychiatric Psychiatric exam: Present: normal affect, normal mood - Skin Skin exam: Present: dry, warm. Absent: rash - VTE Documentation of Mechanical Device: Intermittent pneumatic compression device
[2016-04-07] MEDS: clonazePAM 0.5 MG TABLET PO SCH (20:18)
[2016-04-08] MEDS: Levalbuterol Neb 1.25 MG/3 ML IH SCH ×3 (04:14→11:17)
[2016-04-08] MEDS: hydrALAZINE 25 MG TABLET PO SCH ×2 (06:10→11:50)
[2016-04-08] MEDS: Tiotropium 18 MCG inhalation IH SCH (07:36)
[2016-04-08] MEDS: Aspirin Enteric Coated 81 MG Tablet PO SCH (09:22)
[2016-04-08] MEDS: Furosemide 20 MG TABLET PO SCH (09:22)
[2016-04-08] MEDS: *HR* Amiodarone 200 MG TABLET PO SCH (09:23)
[2016-04-08] MEDS: *HR* Heparin 5,000 UNIT/ML VIAL SQ SCH (09:23)
[2016-04-08] MEDS: amLODIPine 5 MG TABLET PO SCH (09:23)
[2016-04-08 10:56] VITALS: BP 133/45
--- NOTE | 2016-04-08 13:09 | Internal Med Progress Note ---
Date of Encounter: 04/08/16 Time of Encounter: 11:15 - Assessment and plan (1) Pneumonia Current Visit: Yes Status: Acute Assessment and plan: Due to increase in shortness of breath and episodes of decreased O2 saturation, CXR was repeated on day 5 of admission which revealed right lower lobe pneumonia. Patient was started with Unasyn and sent to the long-term on Augmentin. No signs or symptoms to suggest aspiration pneumonia. She did require supplemental oxygenation at time of discharge, suspect this will resolve once her pneumonia clears. She is being sent to [facility] today. ITS Impressions Chest X-Ray 04/04/16 14:56 IMPRESSION: Hazy airspace disease right lower lobe suggesting pneumonia D/ / Horacio Platt MD / Horacio Platt MD Interpreting Provider: Horacio Platt MD Qualifiers: Pneumonia type: due to unspecified organism Laterality: right Lung location: lower lobe of lung Qualified Code(s): J18.9 - Pneumonia, unspecified organism (2) CKD (chronic kidney disease) stage 3, GFR 30-59 ml/min Current Visit: Yes Status: Chronic Assessment and plan: Stable and consistent with her baseline. Creatinine normal on day of discharge. Follow-up outpatient. (3) Accelerated hypertension Current Visit: Yes Status: Resolved Assessment and plan: Started on Hydralazine 25mg po Q6H, Amlodipine 5mg PO daily, normotensive at time of discharge. Recommend daily blood pressure checks at long-term (4) Hypertension Current Visit: No Status: Chronic Assessment and plan: Normotensive at time of discharge Qualifiers: Hypertension type: essential hypertension Qualified Code(s): I10 - Essential (primary) hypertension (5) Acute respiratory failure with hypoxia Current Visit: Yes Status: Acute Assessment and plan: Slowly improving however still required 2 L per nasal cannula continuously at time of discharge. Continue supplemental oxygen and incentive spirometry. Sending to [facility] today. (6) Anemia, chronic disease Current Visit: Yes Status: Chronic Assessment and plan: Stable. No signs of active bleeding. Follow-up outpatient. (7) DVT prophylaxis Current Visit: Yes Status: Acute Assessment and plan: Heparin SQ Q8H while admitted (8) Dizziness Current Visit: Yes Status: Resolved (9) Dysphagia Current Visit: Yes Status: Chronic Assessment and plan: History of esophageal stricture with subsequent esophageal dilation 1.5 months ago. Pt reports difficulty swallowing solids resulting in her vomiting following meal consumption. Bedside swallow completed demonstrating no difficulty with fluids. Speech therapy recommended that patient continue current diet of regular and thin with further evaluation of esophageal dysphagia follow-up outpatient Qualifiers: Dysphagia type: pharyngoesophageal phase Qualified Code(s): R13.14 - Dysphagia, pharyngoesophageal phase (10) Atrial fibrillation Current Visit: Yes Status: Chronic Assessment and plan: Cardiology was consulted and have cleared her for outpatient follow-up. Echocardiogram revealing ejection fraction of 65% and mild diastolic dysfunction , moderate pulmonary hypertension, no segmental wall motion abnormalities. Rate controlled. Not anticoagulated due to history of GI bleed. Qualifiers: Atrial fibrillation type: paroxysmal Qualified Code(s): I48.0 - Paroxysmal atrial fibrillation (11) Hypovolemia dehydration Current Visit: Yes Status: Resolved Assessment and plan: IV fluids stopped. Euvolemic on examination on day of discharge. Normal by mouth intake. (12) COPD (chronic obstructive pulmonary disease) Current Visit: No Status: Chronic Assessment and plan: No acute exacerbation, examination on day of discharge consistent with pneumonia. - Subjective Interval history: Patient seen and examined. On examination, patient sitting upright in her chair and had just eaten lunch. Patient denies shortness of breath above her norm at this time. Patient is endorsing left posterior chest pain that is worsened with movement and palpation. - Constitutional Vitals: Temp Pulse Resp BP Pulse Ox 98.1 F 77 18 133/45 94 L 04/08/16 10:55 04/08/16 10:55 04/08/16 10:55 04/08/16 10:55 04/08/16 10:55 General appearance: Present: A&O X 3, pleasant, no acute distress, answers questions appropriately - Head Head exam: Present: atraumatic, normocephalic - Eye Eye exam: Present: PERRL, conjuntiva pink, sclera anicteric Pupils: Present: PERRL - Neck Neck exam general surgery: Present: supple, trachea midline. Absent: lymphadenopathy - Respiratory Respiratory exam: Present: chest wall tenderness, decreased breath sounds. Absent: accessory muscle use, rales, respiratory distress, rhonchi, wheezes - Cardiovascular Cardiovascular exam: Present: RRR, +S1, +S2. Absent: diastolic murmur, gallop, rubs, systolic murmur - GI/Abdominal GI/Abdominal exam: Present: normal bowel sounds, soft, no peritoneal signs. Absent: distended, tenderness - Extremities Exam Extremities exam: Present: warm, radial pulses palpable and symetrical. Absent : calf tenderness, cyanotic, pedal edema - Neurological Exam Neurological exam: Present: alert, CN II-XII intact, oriented X3, no focal deficits, strengths equal and symetr throughout. Absent: pronater drift, facial droop, speech deficit - Skin Skin exam: Present: dry, intact, pallor, warm Internal Medicine: Result - Labs CBC & Chem 7: 04/06/16 05:20 04/06/16 05:20 - ABG Interpretation ABG results: PT/INR, D-dimer PT 10.0 Seconds (9.4-12.1) 04/01/16 00:40 - VTE Documentation of Mechanical Device: Intermittent pneumatic compression device Consult Discharge Plan - Plan Referrals: Lauren Trivedi MD [Partnered Physician] - 04/14/16 10:30 am Prescriptions: OxyCODONE Immed Rel [Roxicodone 5 MG] 5 mg PO Q6HR PRN #5 tablet PRN Reason: Moderate Pain (4-6) ClonazePAM [Klonopin] 0.5 mg PO HS #3 tablet Metoprolol Succinate 25 mg PO HS #1 tab.er.24h
--- NOTE | 2016-04-08 13:19 | Physician Discharge Referral ---
ExtendedCare Referral Info Transfer To: [facility] Provider in Charge: La Nena Leon CNP Provider in Charge after Transfer: PCP Institutional Level of Care: Skilled - Diagnosis (1) Pneumonia Priority: Primary Status: Acute (2) Accelerated hypertension Priority: Primary Status: Resolved (3) CKD (chronic kidney disease) stage 3, GFR 30-59 ml/min Priority: Secondary Status: Chronic (4) Hypertension Priority: Secondary Status: Chronic (5) Acute respiratory failure with hypoxia Priority: Primary Status: Acute (6) Anemia, chronic disease Priority: Secondary Status: Chronic (7) DVT prophylaxis Priority: Primary Status: Acute (8) Dizziness Priority: Primary Status: Resolved (9) Dysphagia Priority: Secondary Status: Chronic (10) Atrial fibrillation Priority: Secondary Status: Chronic (11) Hypovolemia dehydration Priority: Primary Status: Resolved (12) COPD (chronic obstructive pulmonary disease) Priority: Secondary Status: Chronic Prognosis: Good Aware of Diagnosis: Patient Aware of Prognosis: Patient - Transfer Medications Prescriptions: OxyCODONE Immed Rel [Roxicodone 5 MG] 5 mg PO Q6HR PRN #5 tablet PRN Reason: Moderate Pain (4-6) ClonazePAM [Klonopin] 0.5 mg PO HS #3 tablet Metoprolol Succinate 25 mg PO HS #1 tab.er.24h Home Medications: Amiodarone [Cordarone] 200 mg PO DAILY #0 12/09/14 [History] Docusate [Colace] 100 mg PO DAILY PRN #0 12/09/14 [History] Ferrous Sulfate 325 mg PO BID #0 12/09/14 [History] Furosemide [Lasix] 20 mg PO DAILY #0 12/09/14 [History] Potassium Chloride [K-Tab ER] 10 meq PO DAILY #0 12/09/14 [History] Fluticasone Propionate Nasal [Flonase] 1 spray NS DAILY 10/29/15 [History] Levalbuterol [Xopenex INH] 1 puff IH Q4H 10/29/15 [History] Loratadine [Claritin] 10 mg PO DAILY 10/29/15 [History] Losartan [Cozaar] 50 mg PO DAILY 10/29/15 [History] Ranitidine HCl [Heartburn Relief] 150 mg PO DAILY 10/29/15 [History] Amlodipine [Norvasc] 5 mg PO DAILY tablet 04/07/16 [Rx] Amoxicillin/Clavulanate [Augmentin] 875 mg PO BIDWM tablet 04/07/16 [Rx] Aspirin Enteric Coated [Aspirin EC] 81 mg PO DAILY tablet. 04/07/16 [Rx] ClonazePAM [Klonopin] 0.5 mg PO HS #3 tablet 04/07/16 [Rx] Metoprolol Succinate 25 mg PO HS #1 tab.er.24h 04/07/16 [Rx] OxyCODONE Immed Rel [Roxicodone 5 MG] 5 mg PO Q6HR PRN #5 tablet 04/07/16 [Rx] Tiotropium [Spiriva] 18 mcg IH 0700 inh 04/07/16 [Rx] Allergies/Adverse Reactions: Allergies azithromycin [From Zmax] Allergy (Verified 04/01/16 13:54) See Comments UNSURE OF REACTION- LISTED ON PATIENT'S [facility] APPOINTMENT levofloxacin [From Levaquin] Allergy (Verified 10/29/15 12:38) Rash gabapentin Adverse Reaction (Verified 10/29/15 12:38) Dizziness lisinopril Adverse Reaction (Verified 10/29/15 12:38) Cough - Respiratory Orders Oxygen / L per min (2) Smoking Cessation: Smoking cessation has been advised. For more information, call the [employer] Quit Line at 3-004-SMQW-NOW. - Ancillary Orders May use pressure relief devices daily prn, May go on ARASELI w/family/respon libertarian w /meds at nurse discretion PRN, May have alcoholic beverages, May consult with Dentist, Non Ferrous Material Handler, Color Matcher PRN - Advance Directives Living Will: Yes Power of Burner Machine Operator: Yes Code Status: Full Code - Mobility Orders Ambulate - Rehabiliation Orders Rehab Potential: Good Rehab Orders: ROM Exercises, Evaluation for Physical Therapy, Evaluation for Occupational Therapy, Evaluation for Speech Therapy - Treatments Skin tear care topically daily PRN per policy, May check for fecal impaction rectally daily PRN, Fleet enema rectally every other day PRN cleansing purposes CERTIFICATION: I certify that the transfer of the above named patient to an Extended Care Facility is necessary for the continuing treatment of the diagnosis listed. The above information is true and accurate reflection of patient's current condition. Confidential - Redisclosure prohibited without a patient's written consent.
--- NOTE | 2016-04-08 14:20 | Electrocardiograph Report ---
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
== END 2016-04-08 14:20 | DRG 177 ==
LOC: 3BNU 00:17 → EMEROO 00:17 → SUATTDRO 04:11
PROVIDERS: ADMIT Nurse Practitioner Family; ATTEND Internal Medicine

== ENCOUNTER 2016-04-19 13:06 | Inpatient (IN) ==
[2016-04-19] MEDS ORDERED: Ipratropium/Albuterol Neb 3 ML IH ONE (13:15)
[2016-04-19] MEDS ORDERED: 0.9 % Sodium Chloride 250 ML IVC ONE (13:17)
[2016-04-19] MEDS ORDERED: methylPREDNISolone 125 MG/2 ML VIAL IVP ONE (13:33)
--- NOTE | 2016-04-19 13:35 | Emergency Department Note ---
Disposition Clinical Impression: Wheezing, Tachypnea Right lower lobe pneumonia Qualifiers: Pneumonia type: due to unspecified organism Qualified Code(s): J18.9 - Pneumonia, unspecified organism Syncope Qualifiers: Syncope type: unspecified Qualified Code(s): R55 - Syncope and collapse Disposition: Admitted As Inpatient Condition: Serious Referrals: NO,PCP [Non-Partnered Physician] - Forms: ED Satisfaction Letter SOB HPI - General Chief Complaint: ED Shortness of Breath/Dyspnea Stated Complaint: RHETT/Syncope Time Seen by Provider: 04/19/16 13:08 Nursing Notes Reviewed: Yes Vital Signs Reviewed: Yes - History of Present Illness 89-year-old female with complaints of shortness of breath, difficulty breathing , hypoxia and syncopal episode at [facility] Earlier Today. Patient Has a History of A. fib, Cardiomyopathy, CHF, COPD, TB and Polio When She Was a Child. Patient Was Recently Admitted for Pneumonia Right Lower Lobe and Just Finished Antibiotic Treatment on Doxycycline. Patient Condition has Worsened and Was Brought to the Emergency Department after Syncopal Episode. - Related Data Home Medications Medication Instructions Recorded Confirmed Amiodarone [Cordarone] 200 mg PO DAILY #0 12/09/14 04/01/16 Docusate [Colace] 100 mg PO DAILY PRN #0 12/09/14 04/01/16 Ferrous Sulfate 325 mg PO BID #0 12/09/14 04/01/16 Furosemide [Lasix] 20 mg PO DAILY #0 12/09/14 04/01/16 Potassium Chloride [K-Tab ER] 10 meq PO DAILY #0 12/09/14 04/01/16 Fluticasone Propionate Nasal 1 spray NS DAILY 10/29/15 04/01/16 [Flonase] Levalbuterol [Xopenex INH] 1 puff IH Q4H 10/29/15 04/01/16 Loratadine [Claritin] 10 mg PO DAILY 10/29/15 04/01/16 Losartan [Cozaar] 50 mg PO DAILY 10/29/15 04/01/16 Ranitidine HCl [Heartburn Relief] 150 mg PO DAILY 10/29/15 04/01/16 Previous Rx's Medication Instructions Recorded Amlodipine [Norvasc] 5 mg PO DAILY tablet 04/07/16 Amoxicillin/Clavulanate [Augmentin] 875 mg PO BIDWM tablet 04/07/16 Aspirin Enteric Coated [Aspirin EC] 81 mg PO DAILY tablet. 04/07/16 ClonazePAM [Klonopin] 0.5 mg PO HS #3 tablet 04/07/16 Metoprolol Succinate 25 mg PO HS #1 tab.er.24h 04/07/16 OxyCODONE Immed Rel [Roxicodone 5 5 mg PO Q6HR PRN #5 tablet 04/07/16 MG] Tiotropium [Spiriva] 18 mcg IH 0700 inh 04/07/16 Allergies Allergy/AdvReac Type Severity Reaction Status Date / Time azithromycin [From Zmax] Allergy See Verified 04/01/16 13:54 Comments levofloxacin [From Levaquin] Allergy Rash Verified 10/29/15 12:38 gabapentin AdvReac Dizziness Verified 10/29/15 12:38 lisinopril AdvReac Cough Verified 10/29/15 12:38 Constitutional: Denies: fever, chills Eyes: Denies: eye pain, eye discharge ENT ED: Reports: congestion. Denies: ear pain, throat pain Cardiovascular: Reports: syncope. Denies: chest pain, palpitations Respiratory: Reports: cough, dyspnea, wheezes, sputum production Gastrointestinal: Reports: nausea. Denies: abdominal pain Genitourinary: Denies: urgency, dysuria Musculoskeletal: Denies: back pain, neck pain Integumentary: Denies: rash, abrasion Neurological: Denies: headache, weakness Psychiatric: Denies: anxiety, depression Endocrine: Denies: fatigue, polyuria Hematological/Lymphatic: Denies: easy bleeding, easy bruising Allergic/Immunologic: Denies: facial swelling, urticaria Past Medical History - Past Medical History Attestation: Yes The following information was validated with the patient. Medical history: Reports: arthritis, atrial fibrillation, cardiomyopathy, CHF, COPD, GERD, GI bleed, hypertension, osteoporosis, renal disease, thyroid disease , other Surgical history: Reports: hip replacement, orthopedic, other Psychiatric history: Reports: anxiety PENOLOGY PROFESSOR history: Reports: no PENOLOGY PROFESSOR history - Social History Smoking Status: Never smoker Smokeless Tobacco Status: No Alcohol use: Reports: none Drug use: Reports: none Physical Exam Vital Signs Temperature 98.4 F 04/19/16 13:07 Pulse Rate 70 04/19/16 13:07 Respiratory Rate 22 01/14/17 13:07 Blood Pressure 140/65 01/14/17 13:07 O2 Sat by Pulse Oximetry 97 04/19/16 13:07 Temperature 98.4 F 04/19/16 13:07 Pulse Rate 69 04/19/16 13:41 Respiratory Rate 18 04/19/16 13:41 Blood Pressure 117/72 04/19/16 13:41 O2 Sat by Pulse Oximetry 100 04/19/16 13:41 Oxygen Delivery Oxygen Delivery Nasal Cannula -General Appearance: Patient is a 89-year-old female alert and oriented 3 and comfortable but is belly breathing and has audible wheezing and rhonchorous wet cough -Neurological exam: Cranial nerves II-12 intact, no focal deficits observed, strength equal 5/5 bilaterally in upper and lower extremities, - Head Head exam: atraumatic, normocephalic, normal inspection - Eye Eye exam: Present: normal appearance, PERRL, EOMI, negative for scleral icterus negative for conjunctival pallor - ENT ENT exam: normal exam, normal oropharynx, mucous membranes dry - Neck Neck exam: Present: normal inspection, full ROM, trachea midline, negative JVD - Chest Chest inspection: Present: Patient has bilateral equal rise and fall of chest wall. Non-tender to palpation. - Respiratory Respiratory exam: Rhonchi and wheezing auscultated throughout all lung morales Cardiovascular Cardiovascular exam: Present: regular rate, normal rhythm, normal heart sounds, without murmurs rubs or gallops. - Abdominal Exam Abdominal exam: Present: soft, nondistended, Non-Tender light and deep palpation in all quadrants. Bowel sounds normoactive throughout all 4 quadrants. Negative for hyper or hyperresonance. - Extremities Exam Extremities exam: Patient is shortened and malformed right lower extremity - Back Exam - Psychiatric Psychiatric exam: Present: normal affect, normal mood - Skin Skin exam: Present: warm, dry, intact, normal color Course Course Narrative: Patient seen and examined. Patient currently has no complaints. Patient very sweet. DuoNeb ordered. Patient's currently on 6 L via nasal cannula. CT head , chest x-ray, CBC, BMP, troponin, lactate, LFTs, - Reevaluation(s) Reevaluation #1: Patient is resting comfortably. Patient had DuoNeb therapy. Patient will be started on antibiotics here shortly. Patient still has wet sounding breathing sounds that are audible wheezing has decreased. O2 sat 97% on 5 L via nasal cannula Time: 14:39 - Consultations Consultation #1: Dr. Knight has accepted for admission. Time: 15:11 Vital Signs Temperature 98.4 F 04/19/16 13:07 Pulse Rate 70 04/19/16 13:07 Respiratory Rate 22 04/19/16 13:07 Blood Pressure 140/65 04/19/16 13:07 O2 Sat by Pulse Oximetry 97 04/19/16 13:07 Temperature 98.4 F 04/19/16 13:07 Pulse Rate 74 04/19/16 14:27 Respiratory Rate 18 04/19/16 14:27 Blood Pressure 127/52 04/19/16 14:27 O2 Sat by Pulse Oximetry 97 04/19/16 14:27 Oxygen Delivery Oxygen Delivery Nasal Cannula Shortness of Breath/Dyspnea - MDM Narrative Medical decision making narrative: Ms. Pires is an 89-year-old female who presents with an episode of syncope and recent diagnosis of right lower lobe pneumonia with recent completion of antibiotic therapy doxycycline 100 mg twice a day. Patient was brought to ED for worsening condition secondary to failed outpatient treatment of her pneumonia. Patient's condition is concerning for: Sepsis secondary to worsening pneumonia, syncope secondary to acute hypoxic encephalopathy, arrhythmia secondary to A. fib leading to cardiac ischemia, CVA, with pulmonary embolism, aortic dissection, pneumothorax in my differential as well. Chest x-ray shows no pneumothorax, it does show worsening multifocal airspace opacity throughout both lungs mostly consistent with multifocal pneumonia, stable bilateral pleural effusions, and stable cardiomegaly. CBC shows anemia at 9.2 but this is patient's baseline. Patient's troponin was negative at 0.02. No elevation of lactate. Elevated BUN 25 with a creatinine of 0.94 for prerenal azotemia. Patient is not septic at this time but does have worsening pneumonia. Recommend admission. Patient started on IV antibiotics of Zosyn and vancomycin to cover for HCAP CT head shows no acute intracranial abnormalities. Dr. Knight has accepted for admission. - Medical Records Medical records reviewed: Yes I reviewed the patient's medical records. - Lab Data Lab results reviewed: Yes I reviewed the patient's lab results. Result diagrams: 04/19/16 13:38 04/19/16 13:38 Lab Results 01/14/17 01/14/17 01/14/17 Range/Units 13:38 13:38 13:38 WBC 10.7 (4.3-11.1) K/mcL RBC 3.40 L (3.82-4.97) M/mcL Hgb 9.2 L (11.5-15.4) g/dL Hct 31.0 L (35.3-44.9) % MCV 91.2 (83.0-100.0) fL MCH 27.1 L (28.0-33.3) pg MCHC 29.7 L (31.6-35.5) g/dL RDW 15.4 H (11.5-14.5) % Plt Count 276 (140-400) K/mcL MPV 10.7 (9.4-12.4) fL Immature Gran % 1.2 (0-4) % Seg Neutrophils % 85.4 % Lymphocytes % 2.6 % Monocytes % 10.5 % Eosinophils % 0.0 % Basophils % 0.3 % Neutrophils # 9.2 H (1.6-8.9) K/mcL Lymphocytes # 0.3 L (0.6-4.6) K/mcL Monocytes # 1.1 (0.0-1.3) K/mcL Eosinophils # 0.0 (0.0-0.6) K/mcL Basophils # 0.0 (0.0-0.2) K/mcL Immature Plt Fraction 4.5 (1.1-6.1) % PT (9.4-12.1) Seconds INR APTT (26.0-36.0) Seconds Sodium 144 (136-145) mEq/L Potassium 4.4 (3.5-4.5) mEq/L Chloride 104 (98-109) mEq/L Carbon Dioxide 33 H (19-29) mEq/L BUN 25 H (7-20) mg/dL Creatinine 0.97 (0.57-1.11) mg/dL Est GFR ( Amer) > 60 (> 60) Est GFR (Non-Af Amer) 54 L (> 60) BUN/Creatinine Ratio 26 (6-26) Glucose 129 H (70-99) mg/dL Calculated Osmolality 304 H (280-300) Lactic Acid (0.5-2.2) mmol/L Calcium 8.6 (8.6-10.8) mg/dL Phosphorus (2.3-4.7) mg/dL Magnesium (1.6-2.6) mg/dL Total Bilirubin (0.2-1.2) mg/dL Direct Bilirubin (0.0-0.5) mg/dL Indirect Bilirubin (0.0-1.2) mg/dL AST (5-34) Units/L ALT (0-55) Units/L Alkaline Phosphatase (38-126) Units/L Troponin I 0.02 (0-0.03) ng/mL Serum Total Protein (6.0-8.3) g/dL Albumin (3.5-5.0) g/dL Globulin (2.4-3.5) g/dL Albumin/Globulin Ratio (1.1-2.2) 04/19/16 04/19/16 04/19/16 Range/Units 13:38 13:38 13:38 WBC (4.3-11.1) K/mcL RBC (3.82-4.97) M/mcL Hgb (11.5-15.4) g/dL Hct (35.3-44.9) % MCV (83.0-100.0) fL MCH (28.0-33.3) pg MCHC (31.6-35.5) g/dL RDW (11.5-14.5) % Plt Count (140-400) K/mcL MPV (9.4-12.4) fL Immature Gran % (0-4) % Seg Neutrophils % % Lymphocytes % % Monocytes % % Eosinophils % % Basophils % % Neutrophils # (1.6-8.9) K/mcL Lymphocytes # (0.6-4.6) K/mcL Monocytes # (0.0-1.3) K/mcL Eosinophils # (0.0-0.6) K/mcL Basophils # (0.0-0.2) K/mcL Immature Plt Fraction (1.1-6.1) % PT 11.3 (9.4-12.1) Seconds INR 1.0 APTT 31.1 (26.0-36.0) Seconds Sodium (136-145) mEq/L Potassium (3.5-4.5) mEq/L Chloride (98-109) mEq/L Carbon Dioxide (19-29) mEq/L BUN (7-20) mg/dL Creatinine (0.57-1.11) mg/dL Est GFR ( Amer) (> 60) Est GFR (Non-Af Amer) (> 60) BUN/Creatinine Ratio (6-26) Glucose (70-99) mg/dL Calculated Osmolality (280-300) Lactic Acid 1.2 (0.5-2.2) mmol/L Calcium (8.6-10.8) mg/dL Phosphorus 4.1 (2.3-4.7) mg/dL Magnesium 2.4 (1.6-2.6) mg/dL Total Bilirubin 0.3 (0.2-1.2) mg/dL Direct Bilirubin 0.2 (0.0-0.5) mg/dL Indirect Bilirubin 0.1 (0.0-1.2) mg/dL AST 21 (5-34) Units/L ALT 17 (0-55) Units/L Alkaline Phosphatase 80 (38-126) Units/L Troponin I (0-0.03) ng/mL Serum Total Protein 5.8 L (6.0-8.3) g/dL Albumin 2.6 L (3.5-5.0) g/dL Globulin 3.2 (2.4-3.5) g/dL Albumin/Globulin Ratio 0.8 L (1.1-2.2) - Radiology Data Radiology results reviewed: Yes I reviewed the patient's radiology results. Head CT 04/19/16 13:16 IMPRESSION: No acute intracranial abnormality. D/ / Germán Rousseau MD / Germán Rousseau MD Interpreting Provider: Germán Rousseau MD Chest X-Ray 04/19/16 13:18 IMPRESSION: 1. Interval worsening of multifocal airspace opacity throughout both lungs, most consistent with multifocal pneumonia. 2. Stable small bilateral pleural effusions. 3. Stable cardiomegaly. RECOMMENDATION: Suggest appropriate clinical treatment, and serial chest x-ray follow-up, to ensure complete clearing of the multifocal airspace opacities. D/ / 04/19/2016 14:21:03 Antonio Tejeda MD / chary Interpreting Provider: Antonio Tejeda MD - EKG Data EKG attestation: Yes I reviewed and interpreted this EKG. EKG results narrative: EKG taken 2016 at 1341 hrs. shows a normal sinus rhythm at 70 bpm she has not ST elevation in V3 previous EKG taken 04/07/2016 which shows A. fib RVR at a rate of [address] depressions in V4 V5 and V6 today's EKG looks better than the previous. S.B.A.Yasir - Abe.Chiqui.AAmbrose Situation: Demographics Background: Presenting Complaint, Relevant PMH, Meds, & Allergies Assessment: Vital Signs, Course and respsone to treatment, Exam Concerns, Patient/Family Expectation, Pertinant Lab Results, Outstanding Labs Recommendation: Barrier(s) to disposition S.B.A.RBrunilda Report Given to: Dr. Eugene Shine Repor Time: 15:12
[2016-04-19 13:46] LABS: Basophils % 0.3 %; Hemoglobin 9.2 g/dL (11.5-15.4); Immature Granulocytes % 1.2 % (0-4); Immature Platelets 4.5 % (1.1-6.1); Lymphocytes # 0.3 K/mcL (0.6-4.6); Lymphocytes % 2.6 %; Mean Corpuscular HGB Conc 29.7 g/dL (31.6-35.5); Mean Corpuscular Hemoglobin 27.1 pg (28.0-33.3); Mean Corpuscular Volume 91.2 fL (83.0-100.0); Mean Platelet Volume 10.7 fL (9.4-12.4); Monocytes # 1.1 K/mcL (0.0-1.3); Monocytes % 10.5 %; Neutrophils # 9.2 K/mcL (1.6-8.9); Platelet Count 276 K/mcL (140-400); Red Cell Distribution Width 15.4 % (11.5-14.5); Segmented Neutrophils % 85.4 %
[2016-04-19 13:51] LABS: Prothrombin Time 11.3 Seconds (9.4-12.1)
[2016-04-19 13:54] LABS: Activated Partial Thrombo Time 31.1 Seconds (26.0-36.0)
[2016-04-19 13:59] LABS: BUN/Creatinine Ratio 26 (6-26); Blood Urea Nitrogen 25 mg/dL (7-20); Calcium 8.6 mg/dL (8.6-10.8); Carbon Dioxide 33 mEq/L (19-29); Chloride 104 mEq/L (98-109); Glucose 129 mg/dL (70-99); Osmolality,Calculated 304 (280-300); Potassium 4.4 mEq/L (3.5-4.5); Sodium 144 mEq/L (136-145); eGFR For African Americans > 60 (> 60); eGFR For Non-African Americans 54 (> 60)
[2016-04-19 14:02] LABS: Albumin 2.6 g/dL (3.5-5.0); Albumin/Globulin Ratio 0.8 (1.1-2.2); Bilirubin,Direct 0.2 mg/dL (0.0-0.5); Bilirubin,Indirect 0.1 mg/dL (0.0-1.2); Bilirubin,Total 0.3 mg/dL (0.2-1.2); Globulin 3.2 g/dL (2.4-3.5); Magnesium 2.4 mg/dL (1.6-2.6); Phosphorous 4.1 mg/dL (2.3-4.7); Total Protein 5.8 g/dL (6.0-8.3)
--- NOTE | 2016-04-19 14:20 | Emergency Department Note ---
START Narrative - START START: I examined this patient and my medical decision-making was reviewed with the TOXICOLOGY TEACHER/PA/Advanced Practice Nurse/Resident Physician. I agree with the documented findings, disposition and treatment plan as described except to the extent set forth below. Patient presents to the emergency department with difficulty in breathing. Patient is recently been treated for pneumonia and was switched to doxycycline today. She also had a syncopal episode when getting off the toilet. She denies chest pain other than some pain in the right lower ribs laterally that she says is her muscles. No abdominal pain. No fever. States her cough is productive of chamberlain sputum today which is different from the there was. Exam shows her in no distress. She does have expiratory wheezing on auscultation. Plan. Cardiac workup. Patient requiring increasing oxygen. We will also assess for worsening pneumonia. Patient with multifocal pneumonia worsened since last check. hemodynamically stable at this time. Admitted to medicine.
[2016-04-19] MEDS ORDERED: 0.9 % Sodium Chloride 1,000 ML IVC ONE (14:21)
[2016-04-19] MEDS ORDERED: Vancomycin 750 MG in D5% in Water 250 ML IVPB ONE (14:21)
[2016-04-19] MEDS ORDERED: Piperacillin/Tazobactam 3.375 GM in D5% in Water (Mini-Bag+) 100 ML IVPB ONE (14:28)
[2016-04-19] MEDS ORDERED: Acetaminophen 325 MG TABLET PO PRN (18:36)
[2016-04-19] MEDS ORDERED: Naloxone 0.4 MG/ML INJ IVP PRN (18:36)
[2016-04-19] MEDS ORDERED: Albuterol 2.5 MG/3 ML NEBULIZER IH PRN (18:40)
[2016-04-19] MEDS ORDERED: Vancomycin 750 MG in D5% in Water 250 ML IVPB SCH (19:00)
--- NOTE | 2016-04-19 19:02 | Internal Med History&Physical ---
<Rachna Watkins M - Last Filed: 04/19/16 22:45> Date of Encounter: 04/19/16 Time of Encounter: 18:51 Assessment and Plan (1) HCAP (healthcare-associated pneumonia) Current visit: Yes Status: Acute Patient presented to the ED from her SNF with pre-syncopal episode. She just completed treatment for right lower lobe pneumonia, but has worsening productive cough and shortness of breath. CXR showed worsening of multifocal airspace spacity throught both lungs, consistent with multifocal pneumonia. Satting 96-97% on 5-6L NC, up from wearing 3L. blood cultures sent Lactate 1.2, repeat was 2.6. Given Bolus of 1,250mL in ED Vanc and zosyn initiated by ED, will continue Duoneb treatments QIDR Albuterol nebulizer Q2hr PRN Bipap HS and PRN IV fluids 0.9NS at 75mL/hr will repeat lactate at 10pm (2) Acute and chronic respiratory failure Current visit: Yes Status: Acute Increased oxygen requirements to 5-6L NC from 3L previously. Satting 96-97% on 5-6L. Serum CO2 33. ABG showed respiratory acidosis with PH 7.32, PCO2 71, HCO3 36.6 Titrate O2 to maintain O2 sat > 89% Bipap HS and PRN to maintain O2 saturation Duoneb treatments QIDR Albutrol nebulizer Q2hr PRN Solumedrol 125mg given in ED 40mg prednisone PO daily Lasix 40mg IVP now Lasix 20mg IVP daily, can de-escalate to PO as clinical condition improves Qualifiers: Respiratory failure complication: hypoxia and hypercapnia Qualified Code(s) : J96.21 - Acute and chronic respiratory failure with hypoxia; J96.22 - Acute and chronic respiratory failure with hypercapnia (3) Anemia, chronic disease Current visit: No Status: Chronic Hgb of 9.2 appears to be near baseline. No signs or symptoms of bleeding. (4) Atrial fibrillation Current visit: No Status: Chronic Patient with Sinus rhythm on EKG. Continue home dose of amiodarone. Will hold metoprolol due to bronchospasm effect. Qualifiers: Atrial fibrillation type: paroxysmal Qualified Code(s): I48.0 - Paroxysmal atrial fibrillation (5) Syncope Current visit: Yes Status: Acute Patient presented because of syncopal episode when getting on the commode today at her SNF. CT head negative for acute abnormality Patient Alert and oriented X 3, with grossly normal neuro exam, some inappropriate and out of context comments History of afib, controlled on amiodarone and in sinus rhythm on EKG. Troponin negative, will trend. ABG showed Hypercapnia and respiratory acidosis. orthostatic VS ordered Likely related to worsening pneumonia and acute on chronic respiratory failure with hypoxia vs vasovagal episode on the commode. Qualifiers: Syncope type: unspecified Qualified Code(s): R55 - Syncope and collapse (6) DVT prophylaxis Current visit: No Status: Acute ambulate with assist as tolerated anti-embolic stockings heparin 5,000u SQ BID Internal Medicine - H&P: HPI Chief complaint: presyncope Admitted From: Emergency Dept Plans for Post Hospital Care: Transfer Nursing Home Facility History of present illness: Ms. Pires is a 89 year old female with HTN, CHF, COPD, aFib, GERD, remote history of TB and polio, was sent to ED today from her nursing facility after having a syncopal episode on the comode. She was being treated for RLL pneumonia and had just completed doxycycline. She has continued to have a productive cough, with toscano sputum, and with increasing shortness of breath, and chills. She denies any chest pain, palpitations or headache. She has had some nausea and vomiting, though her family states this is a chronic issue due to a constricted esophagus. She denies any abdominal pain or diarrhea. Evaluation in the ED showed negative troponin of 0.02, lactate of 1.2, Anemia at baseline with hgb of 9.2. Vital signs were stable with HR of 71, BP running 119/52. She had increased O2 requirements as she normally wears 3L at home and was using 5-6L and satting 96-97%. Blood cultures were drawn. CT of the head was negative for any acute abnormality. CXR showed interval worsening of multifocal airspace opacity throughout both lungs, consistent with multifocal pneumonia, and stable small bilateral pleural effusions. On exam, she is alert and oriented x 3, but with some inappropriate comments. Her lungs sound wet and wheezy bilaterally. She continues to sat 96% on 6L. Heart has regular rate and rhythm. BLE with +2 edema. Past Med Surg Social Fam HX - Past Medical History Medical history: arthritis, atrial fibrillation, cardiomyopathy, CHF, COPD, GERD , GI bleed, hypertension, osteoporosis, renal disease, thyroid disease, other ( polio as a child, TB at age 23) Psychiatric history: anxiety - Past Surgical History Surgical History: colectomy (remote partial colectomy for diverticulitis), hip replacement, orthopedic, other - Social History Smoking Status: Never smoker Smokeless Tobacco Status: No Alcohol use: none Drug use: none - Family History Mother Living Status: Father Living Status: Hx Family Cardiac Disorders: Yes Internal Medicine - H&P: Meds Amiodarone [Cordarone] 200 mg PO DAILY #0 12/09/14 [History] Docusate [Colace] 100 mg PO DAILY PRN #0 12/09/14 [History] Ferrous Sulfate 325 mg PO BID #0 12/09/14 [History] Furosemide [Lasix] 20 mg PO DAILY #0 12/09/14 [History] Potassium Chloride [K-Tab ER] 10 meq PO DAILY #0 12/09/14 [History] Fluticasone Propionate Nasal [Flonase] 1 spray NS DAILY 10/29/15 [History] Levalbuterol [Xopenex INH] 1 puff IH Q4H 10/29/15 [History] Loratadine [Claritin] 10 mg PO DAILY 10/29/15 [History] Losartan [Cozaar] 50 mg PO DAILY 10/29/15 [History] Ranitidine HCl [Heartburn Relief] 150 mg PO DAILY 10/29/15 [History] Amlodipine [Norvasc] 5 mg PO DAILY tablet 04/07/16 [Rx] Amoxicillin/Clavulanate [Augmentin] 875 mg PO BIDWM tablet 04/07/16 [Rx] Aspirin Enteric Coated [Aspirin EC] 81 mg PO DAILY tablet. 04/07/16 [Rx] ClonazePAM [Klonopin] 0.5 mg PO HS #3 tablet 04/07/16 [Rx] Metoprolol Succinate 25 mg PO HS #1 tab.er.24h 04/07/16 [Rx] OxyCODONE Immed Rel [Roxicodone 5 MG] 5 mg PO Q6HR PRN #5 tablet 04/07/16 [Rx] Tiotropium [Spiriva] 18 mcg IH 0700 inh 04/07/16 [Rx] Allergies azithromycin [From Zmax] Allergy (Verified 04/01/16 13:54) See Comments UNSURE OF REACTION- LISTED ON PATIENT'S [facility] APPOINTMENT levofloxacin [From Levaquin] Allergy (Verified 10/29/15 12:38) Rash gabapentin Adverse Reaction (Verified 10/29/15 12:38) Dizziness lisinopril Adverse Reaction (Verified 10/29/15 12:38) Cough All Systems PM: A 10-system review of systems was performed and is negative for pertinent findings except as documented above in the HPI. - Constitutional Constitutional: chills, no fever(s), no night sweats - EENT Eyes: no change in vision, no discharge, no pain, no photophobia Additional comments: blind in right eye Nose, mouth and throat: dry mouth, no dysphagia, no nasal discharge, no neck pain, no sore throat - Cardiovascular Cardiovascular ROS IM: dyspnea, lightheadedness, syncope, no chest pain, no diaphoresis, no palpitations - Respiratory Respiratory: cough, dyspnea, wheezing, excessive phlegm production, change in phlegm color, no hemoptysis - Gastrointestinal Gastrointestinal: no abdominal pain, no diarrhea, no hematemesis, no hematochezia, no melena, no nausea, no vomiting - Genitourinary Genitourinary: no change in urinary stream, no dysuria, no flank pain, no hematuria - Musculoskeletal Musculoskeletal ROS IM: deformity (right leg shorter than left, with right foot deformity as well), no numbness, no tingling - Integumentary Integumentary IM: no rash, no unusual bruising - Neurological Neurological ROS: confusion, no convulsions, no focal weakness, no numbness, no tingling, no tremor(s) - Hematologic/Lymphatic Hematologic/Lymphatic: no easy bruising - Constitutional Vitals: Temp Pulse Resp BP Pulse Ox 97.8 F 71 14 121/59 97 04/19/16 17:01 04/19/16 17:01 04/19/16 17:01 04/19/16 17:01 04/19/16 17:01 General appearance: Present: A&O X 3, pleasant, no acute distress - Head Head exam: Present: normocephalic Additional comments: bruising at right bridge of nose - Eye Eye exam: Present: PERRL, conjuntiva pink, sclera anicteric Pupils: Present: PERRL - Neck Neck exam general surgery: Present: supple, trachea midline. Absent: lymphadenopathy - Respiratory Respiratory exam: Present: rales, rhonchi, wheezes. Absent: accessory muscle use, respiratory distress, tachypnea - Cardiovascular Cardiovascular exam: Present: RRR, +S1, +S2. Absent: diastolic murmur, gallop, rubs, systolic murmur - GI/Abdominal GI/Abdominal exam: Present: normal bowel sounds, soft, no peritoneal signs. Absent: distended, tenderness - Extremities Exam Extremities exam: Present: pedal edema (+2 bilateral), warm, radial pulses palpable and symetrical. Absent: calf tenderness, cyanotic - Expanded Lower Extremities Exam Hip exam: Present: shortening (right) Foot/Toe exam: Present: deformity (right) - Neurological Exam Neurological exam: Present: CN II-XII intact, oriented X3, no focal deficits. Absent: pronater drift, facial droop, speech deficit Additional comments: some inappropriate, out of context comments - Skin Skin exam: Present: dry, intact Internal Med - H&P Results - Labs CBC & Chem 7: 04/19/16 13:38 04/19/16 13:38 - VTE Documentation of Mechanical Device: Intermittent pneumatic compression device <Adriana Cruz - Last Filed: 04/20/16 05:25> Date of Encounter: 04/19/16 Time of Encounter: 22:00 Internal Medicine - H&P: HPI History of present illness: Ms. Pires is a 89 year old female All Systems PM: A 10-system review of systems was performed and is negative for pertinent findings except as documented above in the HPI. - Constitutional Vitals: Temp Pulse Resp BP Pulse Ox 98.1 F 62 16 110/53 96 04/19/16 20:00 04/20/16 04:00 04/20/16 04:00 04/20/16 04:00 04/20/16 04:00 Internal Med - H&P Results - Labs CBC & Chem 7: 04/20/16 01:14 04/20/16 01:14 Labs: Short CBC 04/20/16 Range/Units 01:14 WBC 7.9 (4.3-11.1) K/mcL Hgb 8.0 L (11.5-15.4) g/dL Hct 26.7 L (35.3-44.9) % Plt Count 232 (140-400) K/mcL Neutrophils # 7.4 (1.6-8.9) K/mcL BMP 04/20/16 01:14 Sodium 144 Potassium 4.6 H Chloride 107 Carbon Dioxide 31 H BUN 27 H Creatinine 1.04 Glucose 184 H Calcium 8.1 L Cardiac Enzymes 04/19/16 04/20/16 Range/Units 20:47 01:14 Troponin I 0.02 0.01 (0-0.03) ng/mL Urine 04/20/16 Range/Units 01:41 Urine Color Yellow (Yellow) Urine Clarity Clear (Clear) Urine pH 5.5 (5.0-8.0) pH Units Ur Specific [place] 1.018 (1.010-1.025) Urine Protein 30 H (Neg-Trace) mg/dL Urine Glucose (UA) Normal (Normal) mg/dL - ABG Interpretation ABG results: 04/20/16 01:45 ABG pH 7.37 ABG pCO2 60 H ABG pO2 72 L ABG HCO3 34.7 H ABG Total CO2 36.5 H ABG O2 Saturation 94 L ABG Base Excess 8.2 H - Attending Attestation Patient independently seen and examined at bedside. Admitted for acute respiratory distress secondary to multifocal pna. Reported of a one time syncopal episode likely vasovagal Will continue IV abx, PO steroids, bronchodilators. Hold Metoprolol due to active wheezing Continue Amiodarone for rate control for Afib, Not on any anticoagulation Repeat Lactate within acceptable range Case reviewed and discussed with the [place] Watkins. I agree with her documented findings and assessment/plan.
[2016-04-19 19:04] LABS: ABG Base Excess 8.1 mEq/L (-2.0 to 3.0); ABG HCO3 36.6 mEQ/L (21-27); ABG Oxygen Saturation 99 % (95-98); ABG PH 7.32 pH Units (7.32-7.45); ABG PO2 125 mmHg (85-104); ABG TCO2 38.8 mEq/L (20-26)
[2016-04-19 19:06] LABS: ABG PCO2 71 mmHg (35-45)
[2016-04-19] MEDS ORDERED: 0.9 % Sodium Chloride 1,000 ML IVC SCH (19:45)
[2016-04-19] MEDS ORDERED: hydrALAZINE 10 MG TABLET PO PRN (20:00)
[2016-04-19] MEDS ORDERED: Furosemide 40 MG/4 ML VIAL IVP ONE (20:44)
[2016-04-19] MEDS ORDERED: Metoprolol XL (24 HR) Succ 25 MG TAB.ER.24H PO SCH (21:00)
[2016-04-19] MEDS: Ipratropium/Albuterol Neb 3 ML IH SCH ×2 (21:14→23:42)
[2016-04-19] MEDS ORDERED: *HR* LORazepam 2 MG/ML VIAL IVP PRN (21:55)
[2016-04-19] MEDS: clonazePAM 0.5 MG TABLET PO SCH (22:07)
[2016-04-20] MEDS: Piperacillin/Tazobactam 3.375 GM in D5% in Water (Mini-Bag+) 100 ML IVPB SCH ×3 (00:18→22:26)
[2016-04-20 01:27] LABS: Hematocrit 26.7 % (35.3-44.9); Lymphocytes # 0.1 K/mcL (0.6-4.6); Lymphocytes % 1.6 %; Mean Corpuscular Hemoglobin 26.8 pg (28.0-33.3); Mean Corpuscular Volume 89.6 fL (83.0-100.0); Monocytes # 0.3 K/mcL (0.0-1.3); Monocytes % 3.8 %; Neutrophils # 7.4 K/mcL (1.6-8.9); Platelet Count 232 K/mcL (140-400); Red Blood Count 2.98 M/mcL (3.82-4.97); Red Cell Distribution Width 15.5 % (11.5-14.5); Segmented Neutrophils % 93.6 %
[2016-04-20 01:41] LABS: BUN/Creatinine Ratio 26 (6-26); Blood Urea Nitrogen 27 mg/dL (7-20); Calcium 8.1 mg/dL (8.6-10.8); Carbon Dioxide 31 mEq/L (19-29); Chloride 107 mEq/L (98-109); Glucose 184 mg/dL (70-99); Osmolality,Calculated 308 (280-300); Potassium 4.6 mEq/L (3.5-4.5); Sodium 144 mEq/L (136-145); eGFR For African Americans > 60 (> 60); eGFR For Non-African Americans 50 (> 60)
[2016-04-20] MEDS ORDERED: *HR* LORazepam 2 MG/ML VIAL ONE (01:49)
[2016-04-20 01:51] LABS: Bilirubin,Urine Negative (Negative); Blood,Urine Negative (Negative); Clarity,Urine Clear (Clear); Color,Urine Yellow (Yellow); Glucose,Urine (UA) Normal (Normal); Ketones,Urine Negative (Negative); Leukocyte Esterase,Urine Trace (Negative); Nitrite,Urine Negative (Negative); PH,Urine 5.5 pH Units (5.0-8.0); Protein,Urine 30 mg/dL (Neg-Trace); Specific Gravity,Urine 1.018 (1.010-1.025); Urobilinogen,Urine Normal (Normal)
[2016-04-20 01:52] LABS: Bacteria,Urine None Seen per hpf (None-Few); Hyaline Casts,Urine None Seen per lpf (None-Few); Squamous Epithelial Cell,Urine Many per lpf (None-Few)
[2016-04-20] MEDS: *HR* LORazepam 2 MG/ML VIAL IVP SCH ×5 (01:54→11:33)
[2016-04-20 01:55] LABS: ABG Base Excess 8.2 mEq/L (-2.0 to 3.0); ABG HCO3 34.7 mEQ/L (21-27); ABG Oxygen Saturation 94 % (95-98); ABG PCO2 60 mmHg (35-45); ABG PH 7.37 pH Units (7.32-7.45); ABG PO2 72 mmHg (85-104); ABG TCO2 36.5 mEq/L (20-26)
[2016-04-20 01:56] LABS: Blood Gas FiO2 40 %
[2016-04-20 02:44] LABS: Platelet Estimate Normal (Normal)
[2016-04-20] MEDS: Ipratropium/Albuterol Neb 3 ML IH SCH ×5 (04:18→22:55)
[2016-04-20] MEDS: *HR* Heparin 5,000 UNIT/ML VIAL SQ SCH ×2 (06:03→16:50)
[2016-04-20] MEDS ORDERED: Aminoglycoside Consult 1 EACH MC ONE (08:20)
[2016-04-20] MEDS ORDERED: Loratadine 10 MG TABLET PO SCH (09:00)
[2016-04-20] MEDS ORDERED: Fluticasone Propionate Nasal 50 MCG/SPRAY BOTTLE NS SCH (09:00)
[2016-04-20] MEDS ORDERED: predniSONE 20 MG TABLET PO SCH (09:00)
[2016-04-20] MEDS ORDERED: Furosemide 20 MG/2 ML VIAL IVP SCH (09:00)
[2016-04-20] MEDS ORDERED: NON-FORMULARY MEDICATION 1 EACH EACH (Ranitidine Hcl [Heartburn Relief] 150 MG) PO SCH (09:00)
[2016-04-20] MEDS ORDERED: Furosemide 20 MG TABLET PO SCH (09:00)
[2016-04-20] MEDS: amLODIPine 5 MG TABLET PO SCH (09:55)
[2016-04-20] MEDS: Famotidine 20 MG TABLET PO SCH (09:55)
[2016-04-20] MEDS: Aspirin Enteric Coated 81 MG Tablet PO SCH (09:55)
[2016-04-20] MEDS: *HR* Amiodarone 200 MG TABLET PO SCH (09:55)
--- NOTE | 2016-04-20 12:32 | Internal Med Progress Note ---
Date of Encounter: 04/20/16 Time of Encounter: 12:29 - Assessment and plan (1) HCAP (healthcare-associated pneumonia) Current Visit: Yes Status: Acute Assessment and plan: Healthcare associated pneumonia: -Blood cultures obtained in ED. -Vancomycin/Zosyn: Day 2 - Blood cultures negative so far. -We will continue these antibiotics for another 24 hours. -If blood cultures is negative for gram-positive organism for the next 24 hours , then we will discontinue vancomycin. (2) Acute and chronic respiratory failure Current Visit: Yes Status: Acute Assessment and plan: Patient is acute and chronic respiratory failure: -This is likely secondary to healthcare associated pneumonia. -Patient is a hypercapnic respiratory failure. -PCO2 status improved as compared to the first blood gas. -We will continue antibiotics for now. -Patient has audible wheezes and review of that we will start her on IV methylprednisolone. -We will continue DuoNeb every 4 hours -Close observation Qualifiers: Respiratory failure complication: hypoxia and hypercapnia Qualified Code(s) : J96.21 - Acute and chronic respiratory failure with hypoxia; J96.22 - Acute and chronic respiratory failure with hypercapnia (3) Anemia, chronic disease Current Visit: No Status: Chronic Assessment and plan: Patient is anemia of chronic disease. (4) Atrial fibrillation Current Visit: No Status: Chronic Assessment and plan: She is in sinus rhythm Qualifiers: Atrial fibrillation type: paroxysmal Qualified Code(s): I48.0 - Paroxysmal atrial fibrillation (5) DVT prophylaxis Current Visit: No Status: Acute Assessment and plan: Heparin Antiembolic stockings Medical decision making: This patient has a [id number] risk of worsening respiratory failure in spite of being on appropriate treatment. - Subjective Interval history: Patient seen and examined. Chart reviewed. Discussed at length with patient regarding the CODE STATUS. She prefers CPR but she does not want her to be intubated. No family members at bedside. - Constitutional Vitals: Temp Pulse Resp BP Pulse Ox 99 F 114 18 130/83 97 04/20/16 11:24 04/20/16 11:24 04/20/16 11:24 04/20/16 11:24 04/20/16 11:24 General appearance: Present: A&O X 3, pleasant, no acute distress - Head Head exam: Present: atraumatic, normocephalic - Eye Eye exam: Present: PERRL, conjuntiva pink, sclera anicteric Pupils: Present: PERRL - Neck Neck exam general surgery: Present: supple, trachea midline. Absent: lymphadenopathy - Respiratory Respiratory exam: Present: CTAB. Absent: accessory muscle use, rales, rhonchi, wheezes - Cardiovascular Cardiovascular exam: Present: RRR, +S1, +S2. Absent: diastolic murmur, gallop, rubs, systolic murmur - GI/Abdominal GI/Abdominal exam: Present: normal bowel sounds, soft, no peritoneal signs. Absent: distended, tenderness - Extremities Exam Extremities exam: Present: warm, radial pulses palpable and symetrical. Absent : calf tenderness, cyanotic, pedal edema - Neurological Exam Neurological exam: Present: CN II-XII intact, oriented X3, no focal deficits. Absent: pronater drift, facial droop, speech deficit - Skin Skin exam: Present: dry, intact Internal Medicine: Result - Labs CBC & Chem 7: 04/20/16 01:14 04/20/16 01:14 Labs: Short CBC 04/20/16 Range/Units 01:14 WBC 7.9 (4.3-11.1) K/mcL Hgb 8.0 L (11.5-15.4) g/dL Hct 26.7 L (35.3-44.9) % Plt Count 232 (140-400) K/mcL Neutrophils # 7.4 (1.6-8.9) K/mcL BMP 04/20/16 01:14 Sodium 144 Potassium 4.6 H Chloride 107 Carbon Dioxide 31 H BUN 27 H Creatinine 1.04 Glucose 184 H Calcium 8.1 L Cardiac Enzymes 04/19/16 04/20/16 Range/Units 20:47 01:14 Troponin I 0.02 0.01 (0-0.03) ng/mL Urine 04/20/16 Range/Units 01:41 Urine Color Yellow (Yellow) Urine Clarity Clear (Clear) Urine pH 5.5 (5.0-8.0) pH Units Ur Specific [place] 1.018 (1.010-1.025) Urine Protein 30 H (Neg-Trace) mg/dL Urine Glucose (UA) Normal (Normal) mg/dL - ABG Interpretation ABG results: ABG ABG pH 7.37 pH Units (7.32-7.45) 04/20/16 01:45 ABG pCO2 60 mmHg (35-45) H 04/20/16 01:45 ABG pO2 72 mmHg (85-104) L 04/20/16 01:45 ABG O2 Saturation 94 % (95-98) L 04/20/16 01:45 PT/INR, D-dimer PT 11.3 Seconds (9.4-12.1) 04/19/16 13:38 - VTE Documentation of Mechanical Device: Intermittent pneumatic compression device Consult Discharge Plan - Plan Referrals: Herbert Oswald MD [Primary Care Provider] -
[2016-04-20] MEDS ORDERED: Vancomycin 750 MG in D5% in Water 250 ML IVPB SCH (15:30)
[2016-04-20] MEDS ORDERED: Haloperidol Lactate 5 MG/ML VIAL IVP PRN (16:39)
[2016-04-20] MEDS: methylPREDNISolone 125 MG/2 ML VIAL IVP SCH (17:57)
[2016-04-20] MEDS: clonazePAM 0.5 MG TABLET PO SCH (20:46)
[2016-04-20] MEDS ORDERED: Haloperidol Lactate 5 MG/ML VIAL IM ONE (22:15)
[2016-04-21] MEDS: methylPREDNISolone 125 MG/2 ML VIAL IVP SCH ×4 (00:38→17:23)
[2016-04-21] MEDS: Ipratropium/Albuterol Neb 3 ML IH SCH ×6 (04:40→23:52)
[2016-04-21] MEDS: *HR* Heparin 5,000 UNIT/ML VIAL SQ SCH ×2 (05:52→17:22)
[2016-04-21 06:28] LABS: Hemoglobin 8.1 g/dL (11.5-15.4); Mean Corpuscular HGB Conc 31.2 g/dL (31.6-35.5); Mean Corpuscular Hemoglobin 27.3 pg (28.0-33.3); Mean Corpuscular Volume 87.5 fL (83.0-100.0); Mean Platelet Volume 11.3 fL (9.4-12.4); Platelet Count 232 K/mcL (140-400); Red Blood Count 2.97 M/mcL (3.82-4.97); Red Cell Distribution Width 15.7 % (11.5-14.5)
[2016-04-21 06:40] LABS: Albumin/Globulin Ratio 0.7 (1.1-2.2); Bilirubin,Total 0.3 mg/dL (0.2-1.2); Calcium 8.3 mg/dL (8.6-10.8); Globulin 2.9 g/dL (2.4-3.5); Potassium 4.3 mEq/L (3.5-4.5); Total Protein 4.9 g/dL (6.0-8.3)
[2016-04-21 07:17] LABS: Monocytes # 0.3 K/mcL (0.0-1.3); Neutrophils # 12.6 K/mcL (1.6-8.9); Platelet Estimate Normal (Normal)
[2016-04-21] MEDS: Piperacillin/Tazobactam 3.375 GM in D5% in Water (Mini-Bag+) 100 ML IVPB SCH ×2 (08:19→23:04)
[2016-04-21] MEDS: Famotidine 20 MG TABLET PO SCH (08:22)
[2016-04-21] MEDS: Aspirin Enteric Coated 81 MG Tablet PO SCH (08:22)
[2016-04-21] MEDS: *HR* Amiodarone 200 MG TABLET PO SCH (08:22)
[2016-04-21] MEDS: amLODIPine 5 MG TABLET PO SCH (08:22)
--- NOTE | 2016-04-21 09:34 | Electrocardiograph Report ---
[facility] Test Date: 2016-04-19 Pat Name: Viri Pires Department: 103 Room: 2NE29 Gender: F Lending Consultant: KAY : [id number] Requested By: Armando Ly Order Number: [id number] Reading MD: Wilfrido Sow MD Measurements Intervals [place] Rate: 70 P: 95 ME: 195 QRS: -48 QRSD: 118 T: 83 QT: 417 QTc: 437 Interpretive Statements SINUS RHYTHM MARKED LEFT AXIS DEVIATION SEPTAL MYOCARDIAL INFARCTION, OF INDETERMINATE AGE INFERIOR NH, AGE UNDETERMINED Electronically Signed On 04-21-16 09:32:33 EST by Wilfrido Sow MD
[2016-04-21] MEDS ORDERED: 0.9 % Sodium Chloride 500 ML IVC ONE (10:20)
--- NOTE | 2016-04-21 12:29 | Internal Med Progress Note ---
<Kevyn Pineda P - Last Filed: 04/21/16 17:25> Date of Encounter: 04/21/16 - Assessment and plan (1) HCAP (healthcare-associated pneumonia) Current Visit: Yes Status: Acute (2) Acute and chronic respiratory failure Current Visit: Yes Status: Acute Qualifiers: Respiratory failure complication: hypoxia and hypercapnia Qualified Code(s) : J96.21 - Acute and chronic respiratory failure with hypoxia; J96.22 - Acute and chronic respiratory failure with hypercapnia (3) Anemia, chronic disease Current Visit: No Status: Chronic (4) Atrial fibrillation Current Visit: No Status: Chronic Qualifiers: Atrial fibrillation type: paroxysmal Qualified Code(s): I48.0 - Paroxysmal atrial fibrillation (5) DVT prophylaxis Current Visit: No Status: Acute - Constitutional Vitals: Temp Pulse Resp BP Pulse Ox 99.8 F H 110 20 106/63 91 L 04/21/16 15:44 04/21/16 15:44 04/21/16 16:00 04/21/16 16:00 04/21/16 16:00 Internal Medicine: Result - Labs CBC & Chem 7: 04/21/16 05:47 04/21/16 05:47 Labs: Short CBC 04/21/16 Range/Units 05:47 WBC 12.9 H D (4.3-11.1) K/mcL Hgb 8.1 L (11.5-15.4) g/dL Hct 26.0 L (35.3-44.9) % Plt Count 232 (140-400) K/mcL Neutrophils # 12.6 H (1.6-8.9) K/mcL BMP 04/21/16 05:47 Sodium 144 Potassium 4.3 Chloride 105 Carbon Dioxide 30 H BUN 39 H D Creatinine 1.20 H Glucose 144 H Calcium 8.3 L Liver Function 04/21/16 Range/Units 05:47 Total Bilirubin 0.3 (0.2-1.2) mg/dL AST 19 (5-34) Units/L ALT 15 (0-55) Units/L Alkaline Phosphatase 58 (38-126) Units/L Albumin 2.0 L D (3.5-5.0) g/dL - ABG Interpretation ABG results: ABG ABG pH 7.37 pH Units (7.32-7.45) 04/20/16 01:45 ABG pCO2 60 mmHg (35-45) H 04/20/16 01:45 ABG pO2 72 mmHg (85-104) L 04/20/16 01:45 ABG O2 Saturation 94 % (95-98) L 04/20/16 01:45 PT/INR, D-dimer PT 11.3 Seconds (9.4-12.1) 04/19/16 13:38 Consult Discharge Plan - Plan Referrals: Herbert Oswald MD [Primary Care Provider] - 05/01/16 1:00 pm - Attending Attestation I examined this patient and my medical decision-making was reviewed with the [employer]ER[employer] SUPERVISOR/PA/Advanced Practice Nurse/Resident Physician. I agree with the documented findings, disposition and treatment plan as described except to the extent set forth below. <Oscar Cazares Estrada - Last Filed: 04/21/16 17:30> Date of Encounter: 04/21/16 Time of Encounter: 08:30 - Assessment and plan (1) Acute and chronic respiratory failure Current Visit: Yes Status: Acute Assessment and plan: Patient is acute and chronic respiratory failure secondary to multifocal pneumonia HCAP. Patient transitioned from BiPAP to high flow oxygen. Blood gas from yesterday demonstrated improving hypercapnea. Plan: - Continue to wean oxygen as tolerated. - Discontinue restraints - Continue Zosyn for antibiotic coverage. - Continue DuoNebs as scheduled - Continue IV Methylprednisolone. Qualifiers: Respiratory failure complication: hypoxia and hypercapnia Qualified Code(s) : J96.21 - Acute and chronic respiratory failure with hypoxia; J96.22 - Acute and chronic respiratory failure with hypercapnia (2) HCAP (healthcare-associated pneumonia) Current Visit: Yes Status: Acute Assessment and plan: Patient admitted with multifocal pneumonia and started on Vancomycin and Zosyn. Patient had blood cultures x2 drawn in the ED with no growth since 04/19/16. Patients temperature 98.7 with elevation in WBC from 7.9 to 12.9. WBC elevation likely secondary to Solu-medrol but can not rule out inflammatory response to pneumonia. Plan: - Continue Zosyn - Continue DuoNeb treatments as scheduled - Monitor WBC with am labs. (3) Atrial fibrillation Current Visit: No Status: Chronic Assessment and plan: Patient rhythm is atrial fibrillation with HR around 100-115. Plan: Continue current management. Qualifiers: Atrial fibrillation type: paroxysmal Qualified Code(s): I48.0 - Paroxysmal atrial fibrillation (4) DVT prophylaxis Current Visit: No Status: Acute Assessment and plan: Plan: - Continue Heparin sq Q12hrs - Antiembolic stockings (5) MARIO (acute kidney injury) Current Visit: Yes Status: Acute Assessment and plan: Patient demonstrates MARIO with creatinine 1.20 up from 1.04. Elevation likely secondary to volume loss with decreased PO intake. Plan: - Monitor volume status and repeat CMP with am labs. If MARIO continues to worsen may need gentle fluid replacement. - Subjective Interval history: Ms. Pires has been seen and evaluated at patient bedside. She is awake alert and interactive. She is tolerating her BiPAP face mask but feels short of breath when it is removed. She tolerated PO intake and denies nausea or vomiting. She denies bowel movement today. She feels she is retaining some extremity edema. She does not have any further questions. - Constitutional Vitals: Temp Pulse Resp BP Pulse Ox 98.6 F 130 20 155/78 93 L 04/21/16 07:23 04/21/16 12:13 04/21/16 11:26 04/21/16 12:13 04/21/16 11:26 General appearance: Present: cooperative, pleasant, no acute distress - Head Head exam: Present: atraumatic, normal inspection - Eye Eye exam: Present: PERRL - ENT ENT exam: Present: mucous membranes moist - Neck Neck exam general surgery: Present: supple, trachea midline - Respiratory Respiratory exam: Present: decreased breath sounds Additional comments: mild diffuse wheeze - Cardiovascular Cardiovascular exam: Present: irregular rhythm - GI/Abdominal GI/Abdominal exam: Present: normal bowel sounds, soft - Extremities Exam Extremities exam: Present: pedal edema, warm Additional comments: patient has bilateral LE edema without erythema or warmth. 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 - Psychiatric Psychiatric exam: Present: normal mood - Skin Skin exam: Present: warm Internal Medicine: Result - Labs CBC & Chem 7: 04/21/16 05:47 04/21/16 05:47 Labs: Short CBC 04/21/16 Range/Units 05:47 WBC 12.9 H D (4.3-11.1) K/mcL Hgb 8.1 L (11.5-15.4) g/dL Hct 26.0 L (35.3-44.9) % Plt Count 232 (140-400) K/mcL Neutrophils # 12.6 H (1.6-8.9) K/mcL BMP 04/21/16 05:47 Sodium 144 Potassium 4.3 Chloride 105 Carbon Dioxide 30 H BUN 39 H D Creatinine 1.20 H Glucose 144 H Calcium 8.3 L Liver Function 04/21/16 Range/Units 05:47 Total Bilirubin 0.3 (0.2-1.2) mg/dL AST 19 (5-34) Units/L ALT 15 (0-55) Units/L Alkaline Phosphatase 58 (38-126) Units/L Albumin 2.0 L D (3.5-5.0) g/dL - ABG Interpretation ABG results: ABG ABG pH 7.37 pH Units (7.32-7.45) 04/20/16 01:45 ABG pCO2 60 mmHg (35-45) H 04/20/16 01:45 ABG pO2 72 mmHg (85-104) L 04/20/16 01:45 ABG O2 Saturation 94 % (95-98) L 04/20/16 01:45 PT/INR, D-dimer PT 11.3 Seconds (9.4-12.1) 04/19/16 13:38 - VTE Documentation of Mechanical Device: Intermittent pneumatic compression device
--- NOTE | 2016-04-21 14:38 | Palliative - Consult Note ---
Date of Encounter: 04/21/16 Time of Encounter: 13:15 - Assessment and Plan (1) Dyspnea Current Visit: Yes Status: Acute Assessment and plan: Patient is full code. Continues on IV atb, IV steroids, and oxygen/bipap therapy. ABG's noted. Hopefully she will improve - family is aware that she is fragile and may face intubation if she declines. Qualifiers: Dyspnea type: unspecified Qualified Code(s): R06.00 - Dyspnea, unspecified (2) Counseling regarding advanced care planning and goals of care Current Visit: Yes Status: Acute Assessment and plan: Spoke with Mildred Liu via telephone - pt only daughter, as well as her , who was on the other line. Discussed current clinical status and goals of care. Daughter states that she knows that patient wants to remain a full code. She did confirm that her mother, however, did not want to be ventilator. Explained that intubation is part of resuscitation, and that pt has to be adequately oxygenated for successful cardiac resuscitation. Daughter verbalized understanding and stated she would desire short term intubation. Asked if pt would be successful coming off vent and discussed that with history of bronchiectiasis and now multifocal pneumonia, it may be difficult, but no way to definitively give her an answer. She verbalized understanding. Discussed with Dr. Pineda. Will continue to follow at a distance and monitor clinical progress. Palliative-CN HPI - Data of Consult Consult date: 04/21/16 Requesting Physician: Caitie Aviles MD Primary Care Provider: Herbert Oswald MD - Consult Narrative History of present illness: Ms. Pires is a 89 year old female who has a long medical history however was independent and living alone, who was recently hospitalized in end of Mar/Apr, and was re-admitted and currently being treated for multifocal pneumonia. She had been in rehab at [facility] prior to this admission. She is on IV antibiotics, steroids, and breathing treatments, and has also received bipap support. Upon my visit, she appears anxious, and is pleasantly confused. Is asking for her "grandaughter - Mildred", who is actually pt daughter and she has no grandchildren. Respiration appear slightly labored on nasal cannula, and she will be going back on bipap. No family is currently at the bedside. It is reported that this weekend pt had stated she wanted to be a "full code", however, did not want to be intubated. CC: Caitie Aviles MD Past Med Surg Social Fam HX - Past Medical History Medical history: arthritis, atrial fibrillation, cardiomyopathy, CHF, COPD, GERD , GI bleed, hypertension, osteoporosis, renal disease, thyroid disease, other ( polio as a child, TB at age 23) Psychiatric history: anxiety - Past Surgical History Surgical History: colectomy (remote partial colectomy for diverticulitis), hip replacement, orthopedic, other - Social History Smoking Status: Never smoker Smokeless Tobacco Status: No Alcohol use: none Drug use: none - Family History Mother Living Status: Father Living Status: Hx Family Cardiac Disorders: Yes Medications and Allergies Amiodarone [Cordarone] 200 mg PO DAILY #0 12/09/14 [History] Docusate [Colace] 100 mg PO DAILY PRN #0 12/09/14 [History] Ferrous Sulfate 325 mg PO BID #0 12/09/14 [History] Furosemide [Lasix] 20 mg PO DAILY #0 12/09/14 [History] Potassium Chloride [K-Tab ER] 10 meq PO DAILY #0 12/09/14 [History] Fluticasone Propionate Nasal [Flonase] 1 spray NS DAILY 10/29/15 [History] Levalbuterol [Xopenex INH] 1 puff IH Q4H 10/29/15 [History] Loratadine [Claritin] 10 mg PO DAILY 10/29/15 [History] Losartan [Cozaar] 50 mg PO DAILY 10/29/15 [History] Ranitidine HCl [Heartburn Relief] 150 mg PO DAILY 10/29/15 [History] Amlodipine [Norvasc] 5 mg PO DAILY tablet 04/07/16 [Rx] Amoxicillin/Clavulanate [Augmentin] 875 mg PO BIDWM tablet 04/07/16 [Rx] Aspirin Enteric Coated [Aspirin EC] 81 mg PO DAILY tablet. 04/07/16 [Rx] ClonazePAM [Klonopin] 0.5 mg PO HS #3 tablet 04/07/16 [Rx] Metoprolol Succinate 25 mg PO HS #1 tab.er.24h 04/07/16 [Rx] OxyCODONE Immed Rel [Roxicodone 5 MG] 5 mg PO Q6HR PRN #5 tablet 04/07/16 [Rx] Tiotropium [Spiriva] 18 mcg IH 0700 inh 04/07/16 [Rx] Allergies azithromycin [From Zmax] Allergy (Verified 04/01/16 13:54) See Comments UNSURE OF REACTION- LISTED ON PATIENT'S [facility] APPOINTMENT levofloxacin [From Levaquin] Allergy (Verified 10/29/15 12:38) Rash gabapentin Adverse Reaction (Verified 10/29/15 12:38) Dizziness lisinopril Adverse Reaction (Verified 10/29/15 12:38) Cough ROS unobtainable: due to mental status Palliative Care-Exam - Constitutional Vitals: Temp Pulse Resp BP Pulse Ox 98.7 F 126 18 104/72 97 04/21/16 12:28 04/21/16 13:58 04/21/16 13:58 04/21/16 13:58 04/21/16 13:58 General appearance: Present: mild distress - Eye Eye exam: Present: normal appearance, PERRL - Respiratory Additional comments: Patient with inspiratory crackles throughout all lung morales, moist cough. - Cardiovascular Cardiovascular exam: Present: tachycardia - GI/Abdominal Exam GI/Abdominal exam: Present: normal bowel sounds, soft - Catheter Type: Urethral ([place]) Additional comments: Clear yellow urine noted - Extremities Exam Extremities exam: Present: normal capillary refill, normal inspection - Neurological Exam Neurological exam: Present: alert Additional comments: patient oriented to name and place - needs re-oriented to time and situation. Inappropriate statements at times. - Psychiatric Psychiatric exam: Present: anxious - Skin Skin exam: Present: dry, pallor, warm Internal Medicine - CN: Reslt - Labs CBC & Chem 7: 04/21/16 05:47 04/21/16 05:47 Labs: Short CBC 04/21/16 Range/Units 05:47 WBC 12.9 H D (4.3-11.1) K/mcL Hgb 8.1 L (11.5-15.4) g/dL Hct 26.0 L (35.3-44.9) % Plt Count 232 (140-400) K/mcL Neutrophils # 12.6 H (1.6-8.9) K/mcL BMP 04/21/16 05:47 Sodium 144 Potassium 4.3 Chloride 105 Carbon Dioxide 30 H BUN 39 H D Creatinine 1.20 H Glucose 144 H Calcium 8.3 L Liver Function 04/21/16 Range/Units 05:47 Total Bilirubin 0.3 (0.2-1.2) mg/dL AST 19 (5-34) Units/L ALT 15 (0-55) Units/L Alkaline Phosphatase 58 (38-126) Units/L Albumin 2.0 L D (3.5-5.0) g/dL - ABG Interpretation ABG results: ABG ABG pH 7.37 pH Units (7.32-7.45) 04/20/16 01:45 ABG pCO2 60 mmHg (35-45) H 04/20/16 01:45 ABG pO2 72 mmHg (85-104) L 04/20/16 01:45 ABG O2 Saturation 94 % (95-98) L 04/20/16 01:45 PT/INR, D-dimer PT 11.3 Seconds (9.4-12.1) 04/19/16 13:38 Consult Discharge Plan - Plan Referrals: Herbert Oswald MD [Primary Care Provider] - 05/01/16 1:00 pm Palliative Quality Palliative Quality: Screen for Code Status: Yes, Screen for Goals of Care: Yes, Screen for Pain: Yes, If Pain Regimen Started, Initiate Bowel Regimen: NA, Screen for Nausea/Vomitting: Yes Code Status: 04/20/16 12:28 CODE [Resuscitation Status: Active] [RES] Routine Comment: Resuscitation Status: [id number] 04/20/16 12:39 CODE [Resuscitation Status: Active] [RES] Routine Comment: Do not intubate. Resuscitation Status: Full Code
[2016-04-21] MEDS ORDERED: Furosemide 20 MG TABLET PO PRN (15:29)
[2016-04-21] MEDS: clonazePAM 0.5 MG TABLET PO SCH (21:29)
[2016-04-22] MEDS ORDERED: *HR* Metoprolol 5 MG/5 ML VIAL IVP PRN (00:03)
[2016-04-22] MEDS: methylPREDNISolone 125 MG/2 ML VIAL IVP SCH ×5 (00:14→23:58)
[2016-04-22] MEDS: Ipratropium/Albuterol Neb 3 ML IH SCH ×5 (04:16→19:57)
[2016-04-22 05:47] LABS: Basophils % 0.1 %; Hematocrit 28.5 % (35.3-44.9); Hemoglobin 8.8 g/dL (11.5-15.4); Immature Granulocytes % 0.9 % (0-4); Lymphocytes # 0.1 K/mcL (0.6-4.6); Lymphocytes % 0.9 %; Mean Corpuscular HGB Conc 30.9 g/dL (31.6-35.5); Mean Corpuscular Hemoglobin 26.7 pg (28.0-33.3); Mean Corpuscular Volume 86.6 fL (83.0-100.0); Mean Platelet Volume 10.9 fL (9.4-12.4); Monocytes # 0.4 K/mcL (0.0-1.3); Monocytes % 2.7 %; Neutrophils # 14.4 K/mcL (1.6-8.9); Platelet Count 244 K/mcL (140-400); Red Blood Count 3.29 M/mcL (3.82-4.97); Red Cell Distribution Width 15.8 % (11.5-14.5); Segmented Neutrophils % 95.4 %
[2016-04-22 06:05] LABS: Calcium 8.2 mg/dL (8.6-10.8); Potassium 4.2 mEq/L (3.5-4.5)
[2016-04-22 06:07] LABS: Platelet Estimate Normal (Normal)
[2016-04-22] MEDS: *HR* Heparin 5,000 UNIT/ML VIAL SQ SCH ×2 (06:07→16:48)
[2016-04-22] MEDS: Cefepime HCl 2,000 MG in D5% in Water (Mini-Bag+) 100 ML IVPB SCH (09:56)
[2016-04-22] MEDS: Aspirin Enteric Coated 81 MG Tablet PO SCH (09:57)
[2016-04-22] MEDS: amLODIPine 5 MG TABLET PO SCH (09:57)
[2016-04-22] MEDS: *HR* Amiodarone 200 MG TABLET PO SCH (09:57)
[2016-04-22] MEDS: Famotidine 20 MG TABLET PO SCH (09:57)
--- NOTE | 2016-04-22 10:10 | Event Note ---
Date of Encounter: 04/22/16 Time of Encounter: 10:00 Patient states still short of breath, only slightly better. Assisted with breakfast. Denies any discomfort. Discussion with daughter yesterday - she is full code. Palliative not currently managing any symptoms, so will sign off. Please re=consult if clinical course changes. She can most likely return to [facility] for rehab upon discharge.
--- NOTE | 2016-04-22 15:18 | Internal Med Progress Note ---
Date of Encounter: 04/22/16 Time of Encounter: 15:16 - Assessment and plan (1) Acute and chronic respiratory failure Current Visit: Yes Status: Acute Assessment and plan: Patient is acute and chronic respiratory failure secondary to multifocal pneumonia HCAP. Patient transitioned from BiPAP to high flow oxygen. Plan: - Continue to wean oxygen as tolerated. - DC Zosyn and start cefepime as Zosyn is only Intermediate sensitive for E>coli , cefepime will cover for HCAP as well. - Continue DuoNebs as scheduled - Continue IV Methylprednisolone. Qualifiers: Respiratory failure complication: hypoxia and hypercapnia Qualified Code(s) : J96.21 - Acute and chronic respiratory failure with hypoxia; J96.22 - Acute and chronic respiratory failure with hypercapnia (2) HCAP (healthcare-associated pneumonia) Current Visit: Yes Status: Acute Assessment and plan: Patient admitted with multifocal pneumonia and started on Vancomycin and Zosyn. Patient had blood cultures x2 drawn in the ED with no growth since 04/19/16. Plan: - start cefepime for reasons as above. - Continue DuoNeb treatments as scheduled - Monitor WBC with am labs, leukocytosis most likely secondary to steroid - will add chest physiotherapy q shift, add mucinex and give flutter valve for secretions. (3) Anemia, chronic disease Current Visit: No Status: Chronic Assessment and plan: Patient is anemia of chronic disease. (4) Atrial fibrillation Current Visit: No Status: Chronic Assessment and plan: Patient rhythm is atrial fibrillation with HR around 100-115. Plan: Continue current management. Qualifiers: Atrial fibrillation type: paroxysmal Qualified Code(s): I48.0 - Paroxysmal atrial fibrillation - Time Spent With Patient 25 - 35 minutes - Subjective Interval history: Patient seen at the bedside, drowsy but wakes up verbal commands. She says he feels about the same, denies any chest pain or shortness of breath at this time. As per the nurse, the patient is clinically better and more awake than yesterday. She sounds congested,sautrating lo 90s on 4l NC. - Constitutional Vitals: Temp Pulse Resp BP Pulse Ox 97.9 F 132 17 125/82 83 L 04/22/16 11:36 04/22/16 11:36 04/22/16 11:36 04/22/16 11:36 04/22/16 11:36 General appearance: Present: cooperative, pleasant, no acute distress Exam: neck- supple chest- b/l conducted sounds, b.l creptns at the bases, occasional wheezing cvs-s1 and s2, no mr//g abd-soft, non tender, bs are present ext- no edema neuro- drowsy but was able to wake up and answer some basic questions. Internal Medicine: Result - Labs CBC & Chem 7: 04/22/16 05:12 04/22/16 05:12 Labs: Short CBC 04/22/16 Range/Units 05:12 WBC 15.1 H (4.3-11.1) K/mcL Hgb 8.8 L (11.5-15.4) g/dL Hct 28.5 L (35.3-44.9) % Plt Count 244 (140-400) K/mcL Neutrophils # 14.4 H (1.6-8.9) K/mcL BMP 04/22/16 05:12 Sodium 143 Potassium 4.2 Chloride 106 Carbon Dioxide 30 H BUN 47 H Creatinine 1.21 H Glucose 163 H Calcium 8.2 L - ABG Interpretation ABG results: ABG ABG pH 7.37 pH Units (7.32-7.45) 04/20/16 01:45 ABG pCO2 60 mmHg (35-45) H 04/20/16 01:45 ABG pO2 72 mmHg (85-104) L 04/20/16 01:45 ABG O2 Saturation 94 % (95-98) L 04/20/16 01:45 PT/INR, D-dimer PT 11.3 Seconds (9.4-12.1) 04/19/16 13:38 - VTE Documentation of Mechanical Device: Intermittent pneumatic compression device Consult Discharge Plan - Plan Referrals: Herbert Oswald MD [Primary Care Provider] - 05/01/16 1:00 pm
[2016-04-22] MEDS: clonazePAM 0.5 MG TABLET PO SCH (21:20)
[2016-04-23] MEDS: Ipratropium/Albuterol Neb 3 ML IH SCH ×7 (00:07→23:41)
[2016-04-23] MEDS: methylPREDNISolone 125 MG/2 ML VIAL IVP SCH ×3 (05:30→17:04)
[2016-04-23] MEDS: *HR* Heparin 5,000 UNIT/ML VIAL SQ SCH ×2 (05:30→17:04)
[2016-04-23] MEDS: amLODIPine 5 MG TABLET PO SCH (08:19)
[2016-04-23] MEDS: Famotidine 20 MG TABLET PO SCH (08:19)
[2016-04-23] MEDS: *HR* Amiodarone 200 MG TABLET PO SCH (08:19)
[2016-04-23] MEDS: Aspirin Enteric Coated 81 MG Tablet PO SCH (08:19)
[2016-04-23] MEDS: Cefepime HCl 2,000 MG in D5% in Water (Mini-Bag+) 100 ML IVPB SCH (08:20)
[2016-04-23 08:41] LABS: Hematocrit 33.2 % (35.3-44.9); Hemoglobin 10.2 g/dL (11.5-15.4); Immature Granulocytes % 0.9 % (0-4); Lymphocytes # 0.2 K/mcL (0.6-4.6); Mean Corpuscular HGB Conc 30.7 g/dL (31.6-35.5); Mean Corpuscular Hemoglobin 26.6 pg (28.0-33.3); Mean Corpuscular Volume 86.5 fL (83.0-100.0); Mean Platelet Volume 11.1 fL (9.4-12.4); Monocytes # 0.6 K/mcL (0.0-1.3); Monocytes % 2.6 %; Platelet Count 274 K/mcL (140-400); Red Blood Count 3.84 M/mcL (3.82-4.97); Red Cell Distribution Width 16.1 % (11.5-14.5); Segmented Neutrophils % 95.5 %
[2016-04-23 08:54] LABS: Calcium 8.8 mg/dL (8.6-10.8); Potassium 4.5 mEq/L (3.5-4.5)
[2016-04-23 09:11] LABS: Basophilic Stippling 1+ (Not Present); Platelet Estimate Normal (Normal)
--- NOTE | 2016-04-23 10:34 | Internal Med Progress Note ---
Date of Encounter: 04/23/16 Time of Encounter: 10:32 - Assessment and plan (1) Acute and chronic respiratory failure Current Visit: Yes Status: Acute Assessment and plan: Patient is acute and chronic respiratory failure secondary to multifocal pneumonia HCAP. Patient transitioned from BiPAP to high flow oxygen. Plan: - Continue to wean oxygen as tolerated. - DC cefepime and will start meropenem as urine culture grew Escherichia coli and Pseudomonas that is not sensitive to Zosyn. - Continue DuoNebs as scheduled - We will taper methylprednisone to 40 every 8h today. Qualifiers: Respiratory failure complication: hypoxia and hypercapnia Qualified Code(s) : J96.21 - Acute and chronic respiratory failure with hypoxia; J96.22 - Acute and chronic respiratory failure with hypercapnia (2) HCAP (healthcare-associated pneumonia) Current Visit: Yes Status: Acute Assessment and plan: Patient admitted with multifocal pneumonia and started on Vancomycin and Zosyn. Patient had blood cultures x2 drawn in the ED with no growth since 04/19/16. Plan: - start meropenem for reasons as above. - Continue DuoNeb treatments as scheduled - Monitor WBC with am labs, leukocytosis most likely secondary to steroid - will continue chest physiotherapy q shift, mucinex and give flutter valve for secretions. (3) Anemia, chronic disease Current Visit: No Status: Chronic Assessment and plan: Patient is anemia of chronic disease. (4) Atrial fibrillation Current Visit: No Status: Chronic Assessment and plan: Patient rhythm is atrial fibrillation with HR around 100-115. Plan: Continue current management. Have added metoprolol yesterday, will continue to monitor heart rate. Not a candidate for anticoagulation. Continue aspirin only. Qualifiers: Atrial fibrillation type: paroxysmal Qualified Code(s): I48.0 - Paroxysmal atrial fibrillation - Time Spent With Patient 25 - 35 minutes - Subjective Interval history: Patient seen at the bedside, appears more awake and alert and clinically better today. Eating breakfast at the bedside. She has baseline dementia, still sounding quite confused. She sounds congested and becomes hypoxic when she moves or talks,sautrating low 90s on 4l NC. - Constitutional Vitals: Temp Pulse Resp BP Pulse Ox 98.4 F 107 16 129/71 95 04/23/16 07:31 04/23/16 07:31 04/23/16 07:41 04/23/16 07:31 04/23/16 09:00 General appearance: Present: cooperative, pleasant, no acute distress Exam: neck- supple chest- b/l conducted sounds, b.l creptns at the bases, occasional wheezing cvs-s1 and s2, no mr//g abd-soft, non tender, bs are present ext- no edema neuro- alert and awake, not able to answer questions appropriately given baseline dementia. Moving all 4 extremities. Internal Medicine: Result - Labs CBC & Chem 7: 04/23/16 08:35 04/23/16 08:35 Labs: Short CBC 04/23/16 Range/Units 08:35 WBC 22.0 H (4.3-11.1) K/mcL Hgb 10.2 L (11.5-15.4) g/dL Hct 33.2 L (35.3-44.9) % Plt Count 274 (140-400) K/mcL Neutrophils # 21.0 H (1.6-8.9) K/mcL BMP 04/23/16 08:35 Sodium 146 H Potassium 4.5 Chloride 105 Carbon Dioxide 30 H BUN 57 H Creatinine 1.29 H Glucose 164 H Calcium 8.8 - ABG Interpretation ABG results: ABG ABG pH 7.37 pH Units (7.32-7.45) 04/20/16 01:45 ABG pCO2 60 mmHg (35-45) H 04/20/16 01:45 ABG pO2 72 mmHg (85-104) L 04/20/16 01:45 ABG O2 Saturation 94 % (95-98) L 04/20/16 01:45 PT/INR, D-dimer PT 11.3 Seconds (9.4-12.1) 04/19/16 13:38 - Impressions Impressions Chest X-Ray 04/23/16 09:09 IMPRESSION: Persistent bilateral lung infiltrates questioning pulmonary edema versus pneumonia with increasing volume loss in the left lung base. D/ / 04/23/2016 09:44:40 Uriel Casillas MD / gissell Interpreting Provider: Uriel Casillas MD - VTE Documentation of Mechanical Device: Intermittent pneumatic compression device Consult Discharge Plan - Plan Referrals: Herbert Oswald MD [Primary Care Provider] - 05/01/16 1:00 pm
[2016-04-23] MEDS: Meropenem 500 MG in 0.9 % Sodium Chloride Mini Bag 100 ML IVPB SCH (17:03)
[2016-04-23] MEDS: clonazePAM 0.5 MG TABLET PO SCH (19:57)
[2016-04-24] MEDS: methylPREDNISolone 125 MG/2 ML VIAL IVP SCH ×3 (00:27→17:33)
[2016-04-24] MEDS: Ipratropium/Albuterol Neb 3 ML IH SCH ×6 (03:09→23:01)
[2016-04-24 05:05] LABS: Hematocrit 29.9 % (35.3-44.9); Immature Granulocytes % 1.1 % (0-4); Lymphocytes # 0.1 K/mcL (0.6-4.6); Lymphocytes % 0.6 %; Mean Corpuscular HGB Conc 30.1 g/dL (31.6-35.5); Mean Corpuscular Hemoglobin 26.9 pg (28.0-33.3); Mean Corpuscular Volume 89.5 fL (83.0-100.0); Mean Platelet Volume 11.4 fL (9.4-12.4); Monocytes # 0.5 K/mcL (0.0-1.3); Monocytes % 2.4 %; Platelet Count 189 K/mcL (140-400); Red Blood Count 3.34 M/mcL (3.82-4.97); Red Cell Distribution Width 16.6 % (11.5-14.5); Segmented Neutrophils % 95.9 %
[2016-04-24] MEDS: *HR* Heparin 5,000 UNIT/ML VIAL SQ SCH ×2 (05:05→17:33)
[2016-04-24] MEDS: Meropenem 500 MG in 0.9 % Sodium Chloride Mini Bag 100 ML IVPB SCH ×2 (05:05→17:32)
[2016-04-24 05:21] LABS: Calcium 8.4 mg/dL (8.6-10.8)
[2016-04-24 05:30] LABS: Potassium 4.8 mEq/L (3.5-4.5)
[2016-04-24 05:38] LABS: Neutrophils # 19.4 K/mcL (1.6-8.9)
[2016-04-24 05:49] LABS: Anisocytosis 1+ (Not Present); Hypersegmented Neutrophils Present (Not Present); Platelet Clumps Few (Not Present)
[2016-04-24] MEDS: Aspirin Enteric Coated 81 MG Tablet PO SCH (08:39)
[2016-04-24] MEDS: amLODIPine 5 MG TABLET PO SCH (08:39)
[2016-04-24] MEDS: Famotidine 20 MG TABLET PO SCH (08:39)
[2016-04-24] MEDS: *HR* Amiodarone 200 MG TABLET PO SCH (08:40)
--- NOTE | 2016-04-24 09:39 | Internal Med Progress Note ---
Date of Encounter: 04/24/16 Time of Encounter: 09:35 - Assessment and plan (1) Acute and chronic respiratory failure Current Visit: Yes Status: Acute Assessment and plan: Patient has acute and chronic respiratory failure secondary to multifocal pneumonia possible aspiration, background COPD and bronchiectasis. initially on BIPAP which was weaned to 5-6 l NC, back to 40% this morning. continue meropenem as urine culture grew Escherichia coli and Pseudomonas that is not sensitive to Zosyn. blood cx pre rodriguez is negative. repeat CXR with not much improvemnt, ?interstitial edema. will order CT chest today, continue the BIPAP prn . will consult pulmonary for any further recommendations. - Continue DuoNebs as scheduled - continue methylprednisone to 40 every 8h . Qualifiers: Respiratory failure complication: hypoxia and hypercapnia Qualified Code(s) : J96.21 - Acute and chronic respiratory failure with hypoxia; J96.22 - Acute and chronic respiratory failure with hypercapnia (2) HCAP (healthcare-associated pneumonia) Current Visit: Yes Status: Acute Assessment and plan: Patient admitted with multifocal pneumonia possible 2/2 aspiration and started on Vancomycin and Zosyn. Patient had blood cultures x2 drawn in the ED with no growth since 04/19/16. Plan: - start meropenem for reasons as above. - Continue DuoNeb treatments as scheduled - Monitor WBC with am labs, leukocytosis partly may be 2/2 steroids. - will continue chest physiotherapy q shift, mucinex and give flutter valve for secretions. (3) Anemia, chronic disease Current Visit: No Status: Chronic Assessment and plan: Patient is anemia of chronic disease. h/h stable (4) Atrial fibrillation Current Visit: No Status: Chronic Assessment and plan: Patient rhythm is atrial fibrillation with HR around 100-115. Plan: Continue current management. continue the metoprolol , also on amiodarone for atrial fib. Not a candidate for anticoagulation. Continue aspirin only. Qualifiers: Atrial fibrillation type: paroxysmal Qualified Code(s): I48.0 - Paroxysmal atrial fibrillation (5) MARIO (acute kidney injury) Current Visit: Yes Status: Acute Assessment and plan: mild elevation of creatinine. Elevation likely secondary to volume loss with decreased PO intake. Plan: - Monitor volume status and repeat CMP with am labs. may need gentle hydration if tolerated. - Time Spent With Patient 25 - 35 minutes - Subjective Interval history: Patient seen at the bedside, appears drowsy but wakes up on verbal command, on BIPAP, confused. She sounds congested , tachycardic and hypoxic when she moves or talks, sautrating low 90s on 40%. repeat CXR done yesterday shows not much improvement, has worsening MARIO, case discussed with family members on phone for high risk given acute respiratory failure 2/2 pneumonia, they want to continue as Full code. - Constitutional Vitals: Temp Pulse Resp BP Pulse Ox 97.7 F 111 21 142/75 94 L 04/24/16 07:25 04/24/16 07:25 04/24/16 07:50 04/24/16 07:50 04/24/16 07:50 General appearance: Present: cooperative, pleasant, no acute distress Exam: neck- supple chest- b/l crepitations, occasional wheezing cvs-s1 and s2, no m/r/g abd-soft, non tender, bs are present ext- no edema neuro- confused and appears drowsy but wakes up on verbal command, no gross focal defecits noted. Internal Medicine: Result - Labs CBC & Chem 7: 04/24/16 04:32 04/24/16 04:32 Labs: Short CBC 04/24/16 Range/Units 04:32 WBC 20.2 H (4.3-11.1) K/mcL Hgb 9.0 L (11.5-15.4) g/dL Hct 29.9 L (35.3-44.9) % Plt Count 189 (140-400) K/mcL Neutrophils # 19.4 H (1.6-8.9) K/mcL BMP 04/24/16 04:32 Sodium 147 H Potassium 4.8 H Chloride 110 H Carbon Dioxide 27 BUN 68 H Creatinine 1.34 H Glucose 198 H Calcium 8.4 L - ABG Interpretation ABG results: ABG ABG pH 7.37 pH Units (7.32-7.45) 04/20/16 01:45 ABG pCO2 60 mmHg (35-45) H 04/20/16 01:45 ABG pO2 72 mmHg (85-104) L 04/20/16 01:45 ABG O2 Saturation 94 % (95-98) L 04/20/16 01:45 PT/INR, D-dimer PT 11.3 Seconds (9.4-12.1) 04/19/16 13:38 - Impressions Impressions Chest X-Ray 04/23/16 09:09 IMPRESSION: Persistent bilateral lung infiltrates questioning pulmonary edema versus pneumonia with increasing volume loss in the left lung base. D/ / 04/23/2016 09:44:40 Uriel Casillas MD / gissell Interpreting Provider: Uriel Casillas MD - VTE Documentation of Mechanical Device: Intermittent pneumatic compression device Consult Discharge Plan - Plan Referrals: Herbert Oswald MD [Primary Care Provider] - 05/01/16 1:00 pm
--- NOTE | 2016-04-24 12:42 | Pulmonology Consult Note ---
Date of Encounter: 04/24/16 Time of Encounter: 12:40 Assessment and Plan (1) Acute and chronic respiratory failure Current Visit: Yes Status: Acute Due to recurrent aspiration and overall debility. Patient's respiratory status will likely be tenuous for the foreseeable future. Continue oxygen via nasal cannula with school auction saturations of 88 or greater. Continue out of bed activities as tolerated in order to combat atelectasis. Given her recurrent aspiration and mental status, I do not think she is a candidate for BiPAP. Qualifiers: Respiratory failure complication: hypoxia and hypercapnia Qualified Code(s) : J96.21 - Acute and chronic respiratory failure with hypoxia; J96.22 - Acute and chronic respiratory failure with hypercapnia (2) Pneumonia Current Visit: No Status: Acute I reviewed the CT scan of the chest, which revealed multifocal patchy infiltrates most notably in the dependent areas of the lung. This is suggestive of aspiration pneumonia/pneumonitis. Her current antibiotic regimen should cover this and she would need a 7 day course. Qualifiers: Pneumonia type: due to unspecified organism Laterality: right Lung location: lower lobe of lung Qualified Code(s): J18.1 - Lobar pneumonia, unspecified organism (3) Dysphagia Current Visit: No Status: Chronic Difficult situation given her underlying dementia and debility. Recurrent aspiration with respiratory failure will be an ongoing problem for the rest of her life. I do not recommend placing feeding tubes in demented patients. Qualifiers: Dysphagia type: pharyngoesophageal phase Qualified Code(s): R13.14 - Dysphagia, pharyngoesophageal phase (4) Failure to thrive in adult Current Visit: Yes Status: Acute Overall failure to thrive in a demented & malnourished elderly female. Recommend ongoing goals of care discussions with the family, as the patient is hospice appropriate. Palliative care is following. History of Present Illness Consult date: 04/24/16 Requesting physician: Mynor Martinez Reason for consult: pneumonia Chief complaint: respiratory failure History of present illness: 89-year-old white female with a history of dementia, recurrent aspiration, and failure to thrive who presents to the hospital with recurrent aspiration pneumonia and urinary tract infection. Of note, the patient is demented at baseline and unable to participate in history or review of systems. Information was obtained from the medical record and in discussion with hospital staff. Reportedly, the patient had a near syncopal episode and her nursing facility and was sent to the emergency department for evaluation. Workup revealed radiographic evidence of pneumonia, and the patient had been coughing up sputum. She was also noted to have a urinary tract infection and is on broad- spectrum antibiotics to treat this resistant bacteria. She evaluated by speech therapy and is on a modified diet. She remained hypoxic and is requiring oxygen via nasal cannula. Past Med Surg Social Fam HX - Past Medical History Medical history: arthritis, atrial fibrillation, cardiomyopathy, CHF, COPD, GERD , GI bleed, hypertension, osteoporosis, renal disease, thyroid disease, other ( polio as a child, TB at age 23) Psychiatric history: anxiety - Past Surgical History Surgical History: colectomy (remote partial colectomy for diverticulitis), hip replacement, orthopedic, other - Social History Smoking Status: Never smoker Smokeless Tobacco Status: No Alcohol use: none Drug use: none - Family History Mother Living Status: Father Living Status: Hx Family Cardiac Disorders: Yes Medications and Allergies Amiodarone [Cordarone] 200 mg PO DAILY #0 12/09/14 [History] Docusate [Colace] 100 mg PO DAILY PRN #0 12/09/14 [History] Ferrous Sulfate 325 mg PO BID #0 12/09/14 [History] Furosemide [Lasix] 20 mg PO DAILY #0 12/09/14 [History] Potassium Chloride [K-Tab ER] 10 meq PO DAILY #0 12/09/14 [History] Fluticasone Propionate Nasal [Flonase] 1 spray NS DAILY 10/29/15 [History] Levalbuterol [Xopenex INH] 1 puff IH Q4H 10/29/15 [History] Loratadine [Claritin] 10 mg PO DAILY 10/29/15 [History] Losartan [Cozaar] 50 mg PO DAILY 10/29/15 [History] Ranitidine HCl [Heartburn Relief] 150 mg PO DAILY 10/29/15 [History] Amlodipine [Norvasc] 5 mg PO DAILY tablet 04/07/16 [Rx] Amoxicillin/Clavulanate [Augmentin] 875 mg PO BIDWM tablet 04/07/16 [Rx] Aspirin Enteric Coated [Aspirin EC] 81 mg PO DAILY tablet. 04/07/16 [Rx] ClonazePAM [Klonopin] 0.5 mg PO HS #3 tablet 04/07/16 [Rx] Metoprolol Succinate 25 mg PO HS #1 tab.er.24h 04/07/16 [Rx] OxyCODONE Immed Rel [Roxicodone 5 MG] 5 mg PO Q6HR PRN #5 tablet 04/07/16 [Rx] Tiotropium [Spiriva] 18 mcg IH 0700 inh 04/07/16 [Rx] Allergies azithromycin [From Zmax] Allergy (Verified 04/01/16 13:54) See Comments UNSURE OF REACTION- LISTED ON PATIENT'S [facility] APPOINTMENT levofloxacin [From Levaquin] Allergy (Verified 10/29/15 12:38) Rash gabapentin Adverse Reaction (Verified 10/29/15 12:38) Dizziness lisinopril Adverse Reaction (Verified 10/29/15 12:38) Cough ROS unobtainable: due to mental status Physical Examination Vital Signs: Vital Signs, Last 4 Hours Temp Pulse Resp BP Pulse Ox 04/24/16 11:45 98.3 F 113 20 145/91 89 L 04/24/16 11:28 20 88 L 04/24/16 09:00 90 L General: Chronically ill-appearing thin frail white female Eyes: nonicteric ENT: oropharynx moist Neck: supple, no lymphadenopathy Lungs: Coarse bilateral breath sounds Cardiovascular: regular rate and rhythm Gastrointestinal: normoactive bowel sounds, soft, non-tender, non-distended Integumentary: normal Extremities: Diffuse edema of extremities noted Musculoskeletal: deformities of feet noted Neuro: Confused and disoriented at baseline Psych: Mood appears appropriate in light of her dementia Results - Laboratory Findings CBC and BMP: 04/24/16 04:32 04/24/16 04:32 ABG ABG pH 7.37 pH Units (7.32-7.45) 04/20/16 01:45 ABG pCO2 60 mmHg (35-45) H 04/20/16 01:45 ABG pO2 72 mmHg (85-104) L 04/20/16 01:45 ABG O2 Saturation 94 % (95-98) L 04/20/16 01:45 PT/INR, D-dimer PT 11.3 Seconds (9.4-12.1) 04/19/16 13:38 Abnormal lab findings: Abnormal lab results WBC 20.2 K/mcL (4.3-11.1) H 04/24/16 04:32 RBC 3.34 M/mcL (3.82-4.97) L 04/24/16 04:32 Hgb 9.0 g/dL (11.5-15.4) L 04/24/16 04:32 Hct 29.9 % (35.3-44.9) L 04/24/16 04:32 MCH 26.9 pg (28.0-33.3) L 04/24/16 04:32 MCHC 30.1 g/dL (31.6-35.5) L 04/24/16 04:32 RDW 16.6 % (11.5-14.5) H 04/24/16 04:32 Neutrophils # 19.4 K/mcL (1.6-8.9) H 04/24/16 04:32 Lymphocytes # 0.1 K/mcL (0.6-4.6) L 04/24/16 04:32 Hypersegmented Neuts Present (Not Present) A 04/24/16 04:32 Clumped Platelets Few (Not Present) A 04/24/16 04:32 Basophilic Stippling 1+ (Not Present) A 04/23/16 08:35 Anisocytosis 1+ (Not Present) A 04/24/16 04:32 ABG pCO2 60 mmHg (35-45) H 04/20/16 01:45 ABG pO2 72 mmHg (85-104) L 04/20/16 01:45 ABG HCO3 34.7 mEQ/L (21-27) H 04/20/16 01:45 ABG Total CO2 36.5 mEq/L (20-26) H 04/20/16 01:45 ABG O2 Saturation 94 % (95-98) L 04/20/16 01:45 ABG Base Excess 8.2 mEq/L (-2.0 to 3.0) H 04/20/16 01:45 Sodium 147 mEq/L (136-145) H 04/24/16 04:32 Potassium 4.8 mEq/L (3.5-4.5) H 04/24/16 04:32 Chloride 110 mEq/L (98-109) H 04/24/16 04:32 BUN 68 mg/dL (7-20) H 04/24/16 04:32 Creatinine 1.34 mg/dL (0.57-1.11) H 04/24/16 04:32 Est GFR ( Amer) 45 (> 60) L 04/24/16 04:32 Est GFR (Non-Af Amer) 37 (> 60) L 04/24/16 04:32 BUN/Creatinine Ratio 51 (6-26) H 04/24/16 04:32 Glucose 198 mg/dL (70-99) H 04/24/16 04:32 Calculated Osmolality 329 (280-300) H 04/24/16 04:32 Calcium 8.4 mg/dL (8.6-10.8) L 04/24/16 04:32 Serum Total Protein 4.9 g/dL (6.0-8.3) L 04/21/16 05:47 Albumin 2.0 g/dL (3.5-5.0) L D 04/21/16 05:47 Albumin/Globulin Ratio 0.7 (1.1-2.2) L 04/21/16 05:47 Urine Protein 30 mg/dL (Neg-Trace) H 04/20/16 01:41 Ur Leukocyte Esterase Trace (Negative) H 04/20/16 01:41 Urine Microscopic RBC 3-5 per hpf (0-3) H 04/20/16 01:41 Urine Microscopic WBC 3-5 per hpf (0-3) H 04/20/16 01:41 Ur Squamous Epith Cells Many per lpf (None-Few) H 04/20/16 01:41 Ur Culture Indicated? YES (NO) A 04/20/16 01:41 - Microbiology Findings Microbiology Findings: Microbiology, Last 48 Hours 04/20/16 01:41 Urine Culture - Final Urine,Clean Catch Escherichia coli Pseudomonas aeruginosa - Clinical Findings Intake & Output: Intake & Output 04/23/16 04/24/16 04/24/16 23:59 07:59 15:59 Intake Total 220 / 220 0 / 0 Balance 220 / 220 0 / 0 Consult Discharge Plan - Plan Referrals: Herbert Oswald MD [Primary Care Provider] - 05/01/16 1:00 pm
[2016-04-24] MEDS ORDERED: Fluconazole 100 MG TABLET PO ONE (18:18)
[2016-04-24] MEDS: clonazePAM 0.5 MG TABLET PO SCH (20:25)
[2016-04-24] MEDS: Nystatin POWDER 30 GM BOTTLE TP SCH (20:26)
[2016-04-25] MEDS: methylPREDNISolone 125 MG/2 ML VIAL IVP SCH ×3 (00:26→17:17)
[2016-04-25 02:08] LABS: VBG HCO3 36.8 mEq/L (21-27); VBG PH 7.41 pH Units (7.32-7.42)
[2016-04-25] MEDS: Meropenem 500 MG in 0.9 % Sodium Chloride Mini Bag 100 ML IVPB SCH ×2 (04:05→17:17)
[2016-04-25] MEDS: Ipratropium/Albuterol Neb 3 ML IH SCH ×6 (04:29→23:32)
[2016-04-25] MEDS: *HR* Heparin 5,000 UNIT/ML VIAL SQ SCH ×2 (06:14→17:17)
[2016-04-25 08:53] LABS: Basophils % 0.1 %; Hematocrit 29.3 % (35.3-44.9); Hemoglobin 8.9 g/dL (11.5-15.4); Immature Granulocytes % 0.7 % (0-4); Lymphocytes # 0.1 K/mcL (0.6-4.6); Lymphocytes % 0.8 %; Mean Corpuscular HGB Conc 30.4 g/dL (31.6-35.5); Mean Corpuscular Hemoglobin 27.1 pg (28.0-33.3); Mean Corpuscular Volume 89.3 fL (83.0-100.0); Mean Platelet Volume 11.8 fL (9.4-12.4); Monocytes # 0.4 K/mcL (0.0-1.3); Monocytes % 2.4 %; Neutrophils # 16.2 K/mcL (1.6-8.9); Platelet Count 180 K/mcL (140-400); Red Blood Count 3.28 M/mcL (3.82-4.97); Red Cell Distribution Width 16.4 % (11.5-14.5)
[2016-04-25] MEDS: amLODIPine 5 MG TABLET PO SCH (09:02)
[2016-04-25] MEDS: *HR* Amiodarone 200 MG TABLET PO SCH (09:02)
[2016-04-25] MEDS: Aspirin Enteric Coated 81 MG Tablet PO SCH (09:02)
[2016-04-25] MEDS: Famotidine 20 MG TABLET PO SCH (09:02)
[2016-04-25 09:07] LABS: Calcium 8.5 mg/dL (8.6-10.8); Hypochromasia Present (Not Present); Platelet Estimate Normal (Normal); Potassium 4.4 mEq/L (3.5-4.5); Target Cells 1+ (Not Present)
[2016-04-25] MEDS: Nystatin POWDER 30 GM BOTTLE TP SCH ×2 (09:17→21:14)
--- NOTE | 2016-04-25 09:26 | Palliative Progress Note ---
Date of Encounter: 04/25/16 Time of Encounter: 09:10 - Assessment and plan (1) Dyspnea Current Visit: Yes Status: Acute Assessment and plan: Continues with supportive oxygen, nebs, steroids and IV atb. Eventually could add low dose opioids if her condition continues to declines and breathing becomes more difficult, however, would need conversation with family prior to initiating, and she states she is breathing fairly easy at this time. Qualifiers: Dyspnea type: unspecified Qualified Code(s): R06.00 - Dyspnea, unspecified (2) Counseling regarding advanced care planning and goals of care Current Visit: Yes Status: Acute Assessment and plan: Long discussion with daughter Mildred Liu and her . I asked them their understanding of her current condition which daughter stated, "she is still aspirating and that may not get better". Code status has been changed to DNR/DNI by hospitalist. I reviewed pulmonary note and shared recommendations as well. They are very focused on finishing antibiotics for the UTI, and still believe that she will improve. Daughter states " I still believe in miracles". Emotional support given. We did discuss hospice support as well. At end of conversation, daughter does not desire for her to go back to [place] and wants to visit a few nursing facilities in [facility] prior to making a decision on placement. If she continues to do poorly, they are open to hospice care at [facility] on discharge, once IV atb course complete. Will continue to follow. (3) Acute and chronic respiratory failure Current Visit: Yes Status: Acute Qualifiers: Respiratory failure complication: hypoxia and hypercapnia Qualified Code(s) : J96.21 - Acute and chronic respiratory failure with hypoxia; J96.22 - Acute and chronic respiratory failure with hypercapnia (4) HCAP (healthcare-associated pneumonia) Current Visit: Yes Status: Acute - Time Spent With Patient Total time spent is greater than 50% in coordination of care (as documented) at patient's floor/unit and/or counseling patient: Greater than 35 minutes - Subjective Interval history: Palliative had seen pt earlier in week, Dr. Martinez asked for us to get involved again, as pt has done poorly, and continuing to aspirate. Her diet has been downgraded to pureed with honey thick liquids per speech therapy. She continues to aspirate. Pulmonary consult has been obtained and reviewed. At my visit, pt is in no acute distress, states her breathing is not much better. Denies pain other than discomfort improved by repositioning. She currently is on 4 liters oxygen. + BM yesterday. Remains on Meropenem at this time. - Constitutional Vitals: Abnormal lab results WBC 16.9 K/mcL (4.3-11.1) H 04/25/16 08:38 RBC 3.28 M/mcL (3.82-4.97) L 04/25/16 08:38 Hgb 8.9 g/dL (11.5-15.4) L 04/25/16 08:38 Hct 29.3 % (35.3-44.9) L 04/25/16 08:38 MCH 27.1 pg (28.0-33.3) L 04/25/16 08:38 MCHC 30.4 g/dL (31.6-35.5) L 04/25/16 08:38 RDW 16.4 % (11.5-14.5) H 04/25/16 08:38 Neutrophils # 16.2 K/mcL (1.6-8.9) H 04/25/16 08:38 Lymphocytes # 0.1 K/mcL (0.6-4.6) L 04/25/16 08:38 Hypersegmented Neuts Present (Not Present) A 04/24/16 04:32 Clumped Platelets Few (Not Present) A 04/24/16 04:32 Hypochromasia Present (Not Present) A 04/25/16 08:38 Basophilic Stippling 1+ (Not Present) A 04/23/16 08:35 Anisocytosis 1+ (Not Present) A 04/24/16 04:32 Target Cells 1+ (Not Present) A 04/25/16 08:38 ABG pCO2 60 mmHg (35-45) H 04/20/16 01:45 ABG pO2 72 mmHg (85-104) L 04/20/16 01:45 ABG HCO3 34.7 mEQ/L (21-27) H 04/20/16 01:45 ABG Total CO2 36.5 mEq/L (20-26) H 04/20/16 01:45 ABG O2 Saturation 94 % (95-98) L 04/20/16 01:45 ABG Base Excess 8.2 mEq/L (-2.0 to 3.0) H 04/20/16 01:45 VBG pCO2 58 mmHg (41-51) H 04/25/16 01:31 VBG pO2 150 mmHg (25-40) H 04/25/16 01:31 VBG HCO3 36.8 mEq/L (21-27) H 04/25/16 01:31 Sodium 152 mEq/L (136-145) H 04/25/16 08:38 Chloride 113 mEq/L (98-109) H 04/25/16 08:38 BUN 74 mg/dL (7-20) H 04/25/16 08:38 Creatinine 1.28 mg/dL (0.57-1.11) H 04/25/16 08:38 Est GFR ( Amer) 48 (> 60) L 04/25/16 08:38 Est GFR (Non-Af Amer) 39 (> 60) L 04/25/16 08:38 BUN/Creatinine Ratio 58 (6-26) H 04/25/16 08:38 Glucose 166 mg/dL (70-99) H 04/25/16 08:38 Calculated Osmolality 340 (280-300) H 04/25/16 08:38 Calcium 8.5 mg/dL (8.6-10.8) L 04/25/16 08:38 Serum Total Protein 4.9 g/dL (6.0-8.3) L 04/21/16 05:47 Albumin 2.0 g/dL (3.5-5.0) L D 04/21/16 05:47 Albumin/Globulin Ratio 0.7 (1.1-2.2) L 04/21/16 05:47 Urine Protein 30 mg/dL (Neg-Trace) H 04/20/16 01:41 Ur Leukocyte Esterase Trace (Negative) H 04/20/16 01:41 Urine Microscopic RBC 3-5 per hpf (0-3) H 04/20/16 01:41 Urine Microscopic WBC 3-5 per hpf (0-3) H 04/20/16 01:41 Ur Squamous Epith Cells Many per lpf (None-Few) H 04/20/16 01:41 Ur Culture Indicated? YES (NO) A 04/20/16 01:41 General appearance: Present: no acute distress - Respiratory Additional comments: Crackles throughout all lung morales with expiratory wheezed. O2 currently as 4 LPM - Cardiovascular Cardiovascular exam: Present: tachycardia - GI/Abdominal GI/Abdominal exam: Present: normal bowel sounds, soft - Additional comments: [place] with light yellow urine - Extremities Exam Extremities exam: Present: normal capillary refill, normal inspection - Neurological Exam Neurological exam: Present: alert, strengths equal and symetr throughout ( Oriented to name and place, re-oriented to time and situation) - Skin Skin exam: Present: dry, pallor, warm Palliative Quality Palliative Quality: Screen for Code Status: Yes, Screen for Goals of Care: Yes, Screen for Pain: Yes, If Pain Regimen Started, Initiate Bowel Regimen: NA, Screen for Nausea/Vomitting: Yes Code Status: 04/20/16 12:28 CODE [Resuscitation Status: Active] [RES] Routine Comment: Resuscitation Status: [id number] 04/20/16 12:39 CODE [Resuscitation Status: Active] [RES] Routine Comment: Do not intubate. Resuscitation Status: Full Code 04/21/16 14:58 DNR [Resuscitation Status: Active] [RES] Routine Comment: Resuscitation Status: Full Code 04/24/16 15:46 DNR [Resuscitation Status: Active] [RES] Routine Comment: Resuscitation Status: [id number] - Labs CBC & Chem 7: 04/25/16 08:38 04/25/16 08:38 Labs: Laboratory Results - last 24 hr 04/25/16 04/25/16 04/25/16 01:31 08:38 08:38 WBC 16.9 H RBC 3.28 L Hgb 8.9 L Hct 29.3 L MCV 89.3 MCH 27.1 L MCHC 30.4 L RDW 16.4 H Plt Count 180 MPV 11.8 Immature Gran % 0.7 Seg Neutrophils % 96.0 Lymphocytes % 0.8 Monocytes % 2.4 Eosinophils % 0.0 Basophils % 0.1 Neutrophils # 16.2 H Lymphocytes # 0.1 L Monocytes # 0.4 Eosinophils # 0.0 Basophils # 0.0 Platelet Estimate Normal Hypochromasia Present A Target Cells 1+ A VBG pH 7.41 VBG pCO2 58 H VBG pO2 150 H VBG HCO3 36.8 H Sodium 152 H Potassium 4.4 Chloride 113 H Carbon Dioxide 29 BUN 74 H Creatinine 1.28 H Est GFR ( Amer) 48 L Est GFR (Non-Af Amer) 39 L BUN/Creatinine Ratio 58 H Glucose 166 H Calculated Osmolality 340 H Calcium 8.5 L - Impressions Impressions Chest CT 04/24/16 10:30 IMPRESSION: Bilateral pulmonary infiltrates with possible underlying nodular densities. Follow-up CT scan of the chest is recommended to confirm resolution and evaluate for possible underlying pulmonary nodules. Right hilar mass or infiltrate. This can also be further evaluated once the acute process has resolved. Bilateral thyroid nodules. Thyroid ultrasound is recommended for further evaluation. Small pericardial effusion Small left pleural effusion D/ / Santana Ruby MD / Santana Ruby MD Interpreting Provider: Santana Ruby MD - ABG Interpretation ABG results: ABG ABG pH 7.37 pH Units (7.32-7.45) 04/20/16 01:45 ABG pCO2 60 mmHg (35-45) H 04/20/16 01:45 ABG pO2 72 mmHg (85-104) L 04/20/16 01:45 ABG O2 Saturation 94 % (95-98) L 04/20/16 01:45 PT/INR, D-dimer PT 11.3 Seconds (9.4-12.1) 04/19/16 13:38 Consult Discharge Plan - Plan Referrals: Herbert Oswald MD [Primary Care Provider] - 05/01/16 1:00 pm
--- NOTE | 2016-04-25 15:41 | Internal Med Progress Note ---
Date of Encounter: 04/25/16 Time of Encounter: 15:39 - Assessment and plan (1) Acute and chronic respiratory failure Current Visit: Yes Status: Acute Assessment and plan: Patient has acute and chronic respiratory failure secondary to multifocal pneumonia possible aspiration, background COPD and bronchiectasis. jacob sbeen on inermittent BIPAP given hypoxia however given decreased mental status, as per pulmonary will avoid BIPAP for risk of aspiration. continue meropenem as urine culture grew Escherichia coli and Pseudomonas that is not sensitive to Zosyn. blood cx pre rodriguez is negative. repeat CXR with not much improvemnt, CT done shows b/l infiltrates at basal area , most likely aspiration. - continue methylprednisone to 40 every 8h . Qualifiers: Respiratory failure complication: hypoxia and hypercapnia Qualified Code(s) : J96.21 - Acute and chronic respiratory failure with hypoxia; J96.22 - Acute and chronic respiratory failure with hypercapnia (2) HCAP (healthcare-associated pneumonia) Current Visit: Yes Status: Acute Assessment and plan: Patient admitted with multifocal pneumonia possible 2/2 aspiration and started on Vancomycin and Zosyn. Patient had blood cultures x2 drawn in the ED with no growth since 04/19/16. Plan: - start meropenem for reasons as above. - Continue DuoNeb treatments as scheduled - Monitor WBC with am labs, leukocytosis has imporved with cutting down on steroids, - will continue chest physiotherapy q shift, mucinex and give flutter valve for secretions. (3) Anemia, chronic disease Current Visit: No Status: Chronic Assessment and plan: Patient is anemia of chronic disease. h/h stable (4) Atrial fibrillation Current Visit: No Status: Chronic Assessment and plan: Patient rhythm is atrial fibrillation with HR around 100-115. Plan: Continue current management. continue the metoprolol , also on amiodarone for atrial fib. Not a candidate for anticoagulation. Continue aspirin only. Qualifiers: Atrial fibrillation type: paroxysmal Qualified Code(s): I48.0 - Paroxysmal atrial fibrillation (5) MARIO (acute kidney injury) Current Visit: Yes Status: Acute Assessment and plan: mild elevation of creatinine. Elevation likely secondary to volume loss with decreased PO intake. Plan: - Monitor volume status , patinet looks dry and has hypernatremia possible from poor oral intake will start IVF , gentle hydration,continue to monitor and if worsening respiratory status, will hold IVF. - Time Spent With Patient 25 - 35 minutes - Subjective Interval history: Patient seen at the bedside, appears more awake today. sautrating low 90s on 4-5l. repeat CXR done shows not much improvement, has worsening MARIO, case discussed with family members , code status changed to DNR-DNI palliative on board, to continue IV antibiotics to complete the course. - Constitutional Vitals: Temp Pulse Resp BP Pulse Ox 97.9 F 103 20 127/76 93 L 04/25/16 11:11 04/25/16 11:11 04/25/16 11:11 04/25/16 11:11 04/25/16 11:11 General appearance: Present: cooperative, pleasant, no acute distress Exam: neck- supple chest- b/l crepitations, occasional wheezing cvs-s1 and s2, no m/r/g abd-soft, non tender, bs are present ext- no edema neuro- more awake today, moving all extremities. Confused as usual.. Internal Medicine: Result - Labs CBC & Chem 7: 04/25/16 08:38 04/25/16 08:38 Labs: Short CBC 04/25/16 Range/Units 08:38 WBC 16.9 H (4.3-11.1) K/mcL Hgb 8.9 L (11.5-15.4) g/dL Hct 29.3 L (35.3-44.9) % Plt Count 180 (140-400) K/mcL Neutrophils # 16.2 H (1.6-8.9) K/mcL BMP 04/25/16 08:38 Sodium 152 H Potassium 4.4 Chloride 113 H Carbon Dioxide 29 BUN 74 H Creatinine 1.28 H Glucose 166 H Calcium 8.5 L - ABG Interpretation ABG results: ABG ABG pH 7.37 pH Units (7.32-7.45) 04/20/16 01:45 ABG pCO2 60 mmHg (35-45) H 04/20/16 01:45 ABG pO2 72 mmHg (85-104) L 04/20/16 01:45 ABG O2 Saturation 94 % (95-98) L 04/20/16 01:45 PT/INR, D-dimer PT 11.3 Seconds (9.4-12.1) 04/19/16 13:38 - VTE Documentation of Mechanical Device: Intermittent pneumatic compression device Consult Discharge Plan - Plan Referrals: Herbert Oswald MD [Primary Care Provider] - 05/01/16 1:00 pm
[2016-04-25] MEDS: clonazePAM 0.5 MG TABLET PO SCH (21:13)
[2016-04-26] MEDS: methylPREDNISolone 125 MG/2 ML VIAL IVP SCH ×3 (02:56→16:26)
[2016-04-26] MEDS: Meropenem 500 MG in 0.9 % Sodium Chloride Mini Bag 100 ML IVPB SCH ×2 (03:57→16:25)
[2016-04-26] MEDS: Ipratropium/Albuterol Neb 3 ML IH SCH ×5 (04:17→20:16)
[2016-04-26 05:20] LABS: Basophils % 0.1 %; Immature Granulocytes % 0.9 % (0-4); Lymphocytes % 1.1 %; Platelet Count 165 K/mcL (140-400)
[2016-04-26 05:21] LABS: Hematocrit 30.9 % (35.3-44.9); Hemoglobin 9.1 g/dL (11.5-15.4); Lymphocytes # 0.2 K/mcL (0.6-4.6); Mean Corpuscular HGB Conc 29.4 g/dL (31.6-35.5); Mean Corpuscular Hemoglobin 26.9 pg (28.0-33.3); Mean Corpuscular Volume 91.4 fL (83.0-100.0); Mean Platelet Volume 11.7 fL (9.4-12.4); Monocytes # 0.6 K/mcL (0.0-1.3); Monocytes % 3.5 %; Neutrophils # 16.3 K/mcL (1.6-8.9); Red Blood Count 3.38 M/mcL (3.82-4.97); Red Cell Distribution Width 16.6 % (11.5-14.5); Segmented Neutrophils % 94.4 %
[2016-04-26] MEDS: *HR* Heparin 5,000 UNIT/ML VIAL SQ SCH ×2 (05:31→19:24)
[2016-04-26 05:34] LABS: Calcium 8.4 mg/dL (8.6-10.8); Potassium 4.5 mEq/L (3.5-4.5)
[2016-04-26 05:38] LABS: Anisocytosis 1+ (Not Present); Hypochromasia Present (Not Present); Platelet Estimate Normal (Normal)
[2016-04-26] MEDS: Nystatin POWDER 30 GM BOTTLE TP SCH ×2 (10:10→21:13)
[2016-04-26] MEDS: *HR* Amiodarone 200 MG TABLET PO SCH (10:10)
[2016-04-26] MEDS: Famotidine 20 MG TABLET PO SCH (10:10)
[2016-04-26] MEDS: Aspirin Enteric Coated 81 MG Tablet PO SCH (10:10)
[2016-04-26] MEDS: amLODIPine 5 MG TABLET PO SCH (10:10)
[2016-04-26] MEDS: D5% in Water 1,000 ML IVC SCH (10:11)
--- NOTE | 2016-04-26 12:23 | Internal Med Progress Note ---
Date of Encounter: 04/26/16 Time of Encounter: 12:21 - Assessment and plan (1) Acute and chronic respiratory failure Current Visit: Yes Status: Acute Assessment and plan: Patient has acute and chronic respiratory failure secondary to multifocal pneumonia possible aspiration, background COPD and bronchiectasis. jacbo sbeen on inermittent BIPAP given hypoxia however given decreased mental status, as per pulmonary will avoid BIPAP for risk of aspiration. continue meropenem as urine culture grew Escherichia coli and Pseudomonas that is not sensitive to Zosyn, will complete 7 days of treatment. blood cx is negative. repeat CXR with not much improvemnt, CT done shows b/l infiltrates at basal area , most likely aspiration. continue IV methylprednisone for now. Qualifiers: Respiratory failure complication: hypoxia and hypercapnia Qualified Code(s) : J96.21 - Acute and chronic respiratory failure with hypoxia; J96.22 - Acute and chronic respiratory failure with hypercapnia (2) HCAP (healthcare-associated pneumonia) Current Visit: Yes Status: Acute Assessment and plan: Patient admitted with multifocal pneumonia possible 2/2 aspiration and started on Vancomycin and Zosyn. Patient had blood cultures x2 drawn in the ED with no growth since 04/19/16. Plan: - Continue meropenem for reasons as above. - Continue DuoNeb treatments as scheduled - Monitor WBC with am labs, leukocytosis has imporved with cutting down on steroids, - will continue chest physiotherapy q shift, mucinex and give flutter valve for secretions., not much improvement given patient's generalized debilitation, immobility and advanced age with her comorbids and frequent aspiration. (3) Anemia, chronic disease Current Visit: No Status: Chronic Assessment and plan: Patient is anemia of chronic disease. h/h stable (4) Atrial fibrillation Current Visit: No Status: Chronic Assessment and plan: Patient rhythm is atrial fibrillation with HR around 100-115. Plan: Continue current management. continue the metoprolol , also on amiodarone for atrial fib. Not a candidate for anticoagulation. Continue aspirin only. Qualifiers: Atrial fibrillation type: paroxysmal Qualified Code(s): I48.0 - Paroxysmal atrial fibrillation (5) MARIO (acute kidney injury) Current Visit: Yes Status: Acute Assessment and plan: improved. Plan: - Monitor volume status , patinet looks dry and has hypernatremia possible from poor oral intake will start IVF , gentle hydration,continue to monitor and if worsening respiratory status, will hold IVF. (6) Counseling regarding advanced care planning and goals of care Current Visit: Yes Status: Acute Assessment and plan: palliative on board, DNR-CCA -DNI for now,family wants to continue IV antibiotics for now and see how she does over the weekend. have not yet decided on hospice. - Time Spent With Patient 25 - 35 minutes - Subjective Interval history: Patient seen at the bedside, appears at baseline, awake and trying to eat BF. sautrating low 90s on 4-5l. her upper arms and b/l lower legs appear more puffy possible from IVF. palliative on board, to continue IV antibiotics to complete the course. - Constitutional Vitals: Temp Pulse Resp BP Pulse Ox 96.8 F L 106 16 138/75 100 04/26/16 11:30 04/26/16 11:30 04/26/16 11:30 04/26/16 11:30 04/26/16 11:30 General appearance: Present: cooperative, pleasant, no acute distress Exam: neck- supple chest- b/l crepitations, occasional wheezing cvs-s1 and s2, no m/r/g abd-soft, non tender, bs are present ext- edema b/l upper and lower ext. neuro- more awake today, moving all extremities. Confused as usual.. Internal Medicine: Result - Labs CBC & Chem 7: 04/26/16 04:57 04/26/16 04:57 Labs: Short CBC 04/26/16 Range/Units 04:57 WBC 17.3 H (4.3-11.1) K/mcL Hgb 9.1 L (11.5-15.4) g/dL Hct 30.9 L (35.3-44.9) % Plt Count 165 (140-400) K/mcL Neutrophils # 16.3 H (1.6-8.9) K/mcL BMP 04/26/16 04:57 Sodium 152 H Potassium 4.5 Chloride 113 H Carbon Dioxide 31 H BUN 73 H Creatinine 1.18 H Glucose 170 H Calcium 8.4 L - ABG Interpretation ABG results: ABG ABG pH 7.37 pH Units (7.32-7.45) 04/20/16 01:45 ABG pCO2 60 mmHg (35-45) H 04/20/16 01:45 ABG pO2 72 mmHg (85-104) L 04/20/16 01:45 ABG O2 Saturation 94 % (95-98) L 04/20/16 01:45 PT/INR, D-dimer PT 11.3 Seconds (9.4-12.1) 04/19/16 13:38 - VTE Documentation of Mechanical Device: Intermittent pneumatic compression device Consult Discharge Plan - Plan Referrals: Herbert Oswald MD [Primary Care Provider] - 05/01/16 1:00 pm
[2016-04-26] MEDS: *HR* OxyCODONE Immed Rel 5 MG TABLET PO PRN (21:12)
[2016-04-26] MEDS: clonazePAM 0.5 MG TABLET PO SCH (21:13)
[2016-04-27] MEDS: Ipratropium/Albuterol Neb 3 ML IH SCH ×6 (00:30→20:40)
[2016-04-27] MEDS: methylPREDNISolone 125 MG/2 ML VIAL IVP SCH ×3 (00:58→17:05)
[2016-04-27] MEDS: Meropenem 500 MG in 0.9 % Sodium Chloride Mini Bag 100 ML IVPB SCH ×2 (04:19→17:05)
[2016-04-27] MEDS: D5% in Water 1,000 ML IVC SCH (06:04)
[2016-04-27] MEDS: *HR* Heparin 5,000 UNIT/ML VIAL SQ SCH ×2 (06:05→17:06)
[2016-04-27 08:29] LABS: Basophils % 0.1 %; Hematocrit 29.9 % (35.3-44.9); Hemoglobin 8.9 g/dL (11.5-15.4); Immature Granulocytes % 1.4 % (0-4); Lymphocytes # 0.2 K/mcL (0.6-4.6); Lymphocytes % 1.1 %; Mean Corpuscular HGB Conc 29.8 g/dL (31.6-35.5); Mean Corpuscular Volume 90.6 fL (83.0-100.0); Mean Platelet Volume 12.5 fL (9.4-12.4); Monocytes # 0.6 K/mcL (0.0-1.3); Monocytes % 4.2 %; Neutrophils # 12.9 K/mcL (1.6-8.9); Platelet Count 131 K/mcL (140-400); Red Cell Distribution Width 16.3 % (11.5-14.5); Segmented Neutrophils % 93.2 %
[2016-04-27 08:43] LABS: Calcium 8.2 mg/dL (8.6-10.8); Potassium 4.7 mEq/L (3.5-4.5)
[2016-04-27] MEDS: Aspirin Enteric Coated 81 MG Tablet PO SCH (10:09)
[2016-04-27] MEDS: amLODIPine 5 MG TABLET PO SCH (10:09)
[2016-04-27] MEDS: Famotidine 20 MG TABLET PO SCH (10:09)
[2016-04-27] MEDS: *HR* Amiodarone 200 MG TABLET PO SCH (10:09)
[2016-04-27] MEDS: Nystatin POWDER 30 GM BOTTLE TP SCH ×2 (10:09→22:04)
--- NOTE | 2016-04-27 10:55 | Internal Med Progress Note ---
Date of Encounter: 04/27/16 Time of Encounter: 10:52 - Assessment and plan (1) Acute and chronic respiratory failure Current Visit: Yes Status: Acute Assessment and plan: Patient has acute and chronic respiratory failure secondary to multifocal pneumonia possible aspiration, background COPD and bronchiectasis. jacob sbeen on inermittent BIPAP given hypoxia however given decreased mental status, as per pulmonary will avoid BIPAP for risk of aspiration. continue meropenem as urine culture grew Escherichia coli and Pseudomonas that is not sensitive to Zosyn, will complete 7 days of treatment. blood cx is negative. sputum cx growing gram negative rods. repeat CXR with not much improvemnt, CT done shows b/l infiltrates at basal area , most likely aspiration. looks better on the chart, requiring less 02 today however clincally very drowsy. continue IV methylprednisone for now, transition to oral tomm. Qualifiers: Respiratory failure complication: hypoxia and hypercapnia Qualified Code(s) : J96.21 - Acute and chronic respiratory failure with hypoxia; J96.22 - Acute and chronic respiratory failure with hypercapnia (2) HCAP (healthcare-associated pneumonia) Current Visit: Yes Status: Acute Assessment and plan: Patient admitted with multifocal pneumonia possible 2/2 aspiration and started on Vancomycin and Zosyn. Patient had blood cultures x2 drawn in the ED with no growth since 04/19/16. Plan: - Continue meropenem for reasons as above. - Continue DuoNeb treatments as scheduled - leucocytosis has improved. - will continue chest physiotherapy q shift, mucinex and give flutter valve for secretions., not much improvement given patient's generalized debilitation, immobility and advanced age with her comorbids and frequent aspiration. (3) Anemia, chronic disease Current Visit: No Status: Chronic Assessment and plan: Patient is anemia of chronic disease. h/h stable (4) Atrial fibrillation Current Visit: No Status: Chronic Assessment and plan: Patient rhythm is atrial fibrillation with HR around 100-115. Plan: Continue current management. continue the metoprolol , also on amiodarone for atrial fib. Not a candidate for anticoagulation. Continue aspirin only. Qualifiers: Atrial fibrillation type: paroxysmal Qualified Code(s): I48.0 - Paroxysmal atrial fibrillation (5) MARIO (acute kidney injury) Current Visit: Yes Status: Acute Assessment and plan: improved. Plan: - Monitor volume status , will continue D5, hypernatremia is better. continue to monitor and if worsening respiratory status, will hold IVF. (6) Counseling regarding advanced care planning and goals of care Current Visit: Yes Status: Acute Assessment and plan: palliative on board, DNR-CCA -DNI for now,family wants to continue IV antibiotics for now and see how she does over the weekend. have not yet decided on hospice. - Time Spent With Patient 25 - 35 minutes - Subjective Interval history: Patient seen at the bedside, appears very drowsy today as compared to yesterday. sautrating 97% on 4 l of o2 which is better than yesterday. her upper arms and b/l lower legs appear more puffy possible from IVF. palliative on board, to continue IV antibiotics to complete the course. - Constitutional Vitals: Temp Pulse Resp BP Pulse Ox 97.6 F 100 18 112/54 99 04/27/16 07:00 04/27/16 07:00 04/27/16 07:00 04/27/16 07:00 04/27/16 07:00 General appearance: Present: cooperative, pleasant, no acute distress Exam: neck- supple chest- b/l creptns, no wheezing heard cvs-s1 and s2, no mr/g/ abd-soft, non tender, bs are present ext- b/l upper and lower leg edema. neuro- too drowsy today, responds briefly but goes back to sleep again. Internal Medicine: Result - Labs CBC & Chem 7: 04/27/16 08:08 04/27/16 08:08 Labs: Short CBC 04/27/16 Range/Units 08:08 WBC 13.8 H (4.3-11.1) K/mcL Hgb 8.9 L (11.5-15.4) g/dL Hct 29.9 L (35.3-44.9) % Plt Count 131 L (140-400) K/mcL Neutrophils # 12.9 H (1.6-8.9) K/mcL BMP 04/27/16 08:08 Sodium 147 H Potassium 4.7 H Chloride 111 H Carbon Dioxide 29 BUN 76 H Creatinine 1.12 H Glucose 222 H Calcium 8.2 L - ABG Interpretation ABG results: ABG ABG pH 7.37 pH Units (7.32-7.45) 04/20/16 01:45 ABG pCO2 60 mmHg (35-45) H 04/20/16 01:45 ABG pO2 72 mmHg (85-104) L 04/20/16 01:45 ABG O2 Saturation 94 % (95-98) L 04/20/16 01:45 PT/INR, D-dimer PT 11.3 Seconds (9.4-12.1) 04/19/16 13:38 - VTE Documentation of Mechanical Device: Intermittent pneumatic compression device Consult Discharge Plan - Plan Referrals: Herbert Oswald MD [Primary Care Provider] - 05/01/16 1:00 pm
[2016-04-27] MEDS: *HR* OxyCODONE Immed Rel 5 MG TABLET PO PRN (13:15)
[2016-04-27] MEDS: clonazePAM 0.5 MG TABLET PO SCH (21:50)
[2016-04-28] MEDS: Ipratropium/Albuterol Neb 3 ML IH SCH ×7 (00:04→23:52)
[2016-04-28] MEDS: methylPREDNISolone 125 MG/2 ML VIAL IVP SCH ×4 (01:15→23:54)
[2016-04-28 04:26] LABS: Hematocrit 30.3 % (35.3-44.9); Mean Corpuscular HGB Conc 29.7 g/dL (31.6-35.5); Mean Corpuscular Hemoglobin 26.9 pg (28.0-33.3); Mean Corpuscular Volume 90.4 fL (83.0-100.0); Mean Platelet Volume 12.5 fL (9.4-12.4); Platelet Count 137 K/mcL (140-400); Red Blood Count 3.35 M/mcL (3.82-4.97); Red Cell Distribution Width 16.5 % (11.5-14.5)
[2016-04-28] MEDS: Meropenem 500 MG in 0.9 % Sodium Chloride Mini Bag 100 ML IVPB SCH ×2 (04:32→16:45)
[2016-04-28 04:47] LABS: Potassium 4.9 mEq/L (3.5-4.5)
[2016-04-28 04:48] LABS: Calcium 7.9 mg/dL (8.6-10.8)
[2016-04-28 04:54] LABS: Lymphocytes # 0.6 K/mcL (0.6-4.6); Monocytes # 0.6 K/mcL (0.0-1.3); Neutrophils # 12.9 K/mcL (1.6-8.9)
[2016-04-28 04:55] LABS: Hypersegmented Neutrophils Present (Not Present); Target Cells 1+ (Not Present)
[2016-04-28 04:57] LABS: Platelet Estimate Normal (Normal)
[2016-04-28 04:58] LABS: Stomatocytes 1+ (Not Present)
[2016-04-28 04:59] LABS: Poikilocytosis 1+ (Not Present)
[2016-04-28] MEDS: *HR* Heparin 5,000 UNIT/ML VIAL SQ SCH ×2 (05:08→16:45)
[2016-04-28] MEDS: Famotidine 20 MG TABLET PO SCH (09:21)
[2016-04-28] MEDS: *HR* Amiodarone 200 MG TABLET PO SCH (09:21)
[2016-04-28] MEDS: amLODIPine 5 MG TABLET PO SCH (09:21)
[2016-04-28] MEDS: Nystatin POWDER 30 GM BOTTLE TP SCH ×2 (09:22→20:31)
[2016-04-28] MEDS: Aspirin Enteric Coated 81 MG Tablet PO SCH (09:22)
--- NOTE | 2016-04-28 09:42 | Palliative Progress Note ---
Date of Encounter: 04/28/16 Time of Encounter: 09:40 - Assessment and plan (1) Dyspnea Current Visit: Yes Status: Acute Assessment and plan: Continues on IV atb, steroids, nebs, oxygen. Monitor. Appears improved this am. Qualifiers: Dyspnea type: unspecified Qualified Code(s): R06.00 - Dyspnea, unspecified (2) Counseling regarding advanced care planning and goals of care Current Visit: Yes Status: Acute Assessment and plan: Currently no family present. Will f/u with them later today. As of Thursday, they were leaning toward skilled care at [facility] instead of hospice. (3) Acute and chronic respiratory failure Current Visit: Yes Status: Acute Qualifiers: Respiratory failure complication: hypoxia and hypercapnia Qualified Code(s) : J96.21 - Acute and chronic respiratory failure with hypoxia; J96.22 - Acute and chronic respiratory failure with hypercapnia (4) HCAP (healthcare-associated pneumonia) Current Visit: Yes Status: Acute - Time Spent With Patient Total time spent is greater than 50% in coordination of care (as documented) at patient's floor/unit and/or counseling patient: 25 - 35 minutes - Subjective Interval history: Patient awake and alert. Asking for drink. C/o sore mouth and some patches noted on tongue. + BM this am. No family present - Constitutional Vitals: Abnormal lab results WBC 14.0 K/mcL (4.3-11.1) H 04/28/16 04:09 RBC 3.35 M/mcL (3.82-4.97) L 04/28/16 04:09 Hgb 9.0 g/dL (11.5-15.4) L 04/28/16 04:09 Hct 30.3 % (35.3-44.9) L 04/28/16 04:09 MCH 26.9 pg (28.0-33.3) L 04/28/16 04:09 MCHC 29.7 g/dL (31.6-35.5) L 04/28/16 04:09 RDW 16.5 % (11.5-14.5) H 04/28/16 04:09 Plt Count 137 K/mcL (140-400) L 04/28/16 04:09 MPV 12.5 fL (9.4-12.4) H 04/28/16 04:09 Band Neutrophils % 8.0 % (0-4) H 04/28/16 04:09 Neutrophils # 12.9 K/mcL (1.6-8.9) H 04/28/16 04:09 Hypersegmented Neuts Present (Not Present) A 04/28/16 04:09 Clumped Platelets Few (Not Present) A 04/24/16 04:32 Hypochromasia Present (Not Present) A 04/26/16 04:57 Poikilocytosis 1+ (Not Present) A 04/28/16 04:09 Basophilic Stippling 1+ (Not Present) A 04/23/16 08:35 Anisocytosis 1+ (Not Present) A 04/26/16 04:57 Target Cells 1+ (Not Present) A 04/28/16 04:09 Stomatocytes 1+ (Not Present) A 04/28/16 04:09 ABG pCO2 60 mmHg (35-45) H 04/20/16 01:45 ABG pO2 72 mmHg (85-104) L 04/20/16 01:45 ABG HCO3 34.7 mEQ/L (21-27) H 04/20/16 01:45 ABG Total CO2 36.5 mEq/L (20-26) H 04/20/16 01:45 ABG O2 Saturation 94 % (95-98) L 04/20/16 01:45 ABG Base Excess 8.2 mEq/L (-2.0 to 3.0) H 04/20/16 01:45 VBG pCO2 58 mmHg (41-51) H 04/25/16 01:31 VBG pO2 150 mmHg (25-40) H 04/25/16 01:31 VBG HCO3 36.8 mEq/L (21-27) H 04/25/16 01:31 Sodium 147 mEq/L (136-145) H 04/28/16 04:09 Potassium 4.9 mEq/L (3.5-4.5) H 04/28/16 04:09 Chloride 111 mEq/L (98-109) H 04/28/16 04:09 BUN 79 mg/dL (7-20) H 04/28/16 04:09 Est GFR ( Amer) 57 (> 60) L 04/28/16 04:09 Est GFR (Non-Af Amer) 47 (> 60) L 04/28/16 04:09 BUN/Creatinine Ratio 72 (6-26) H 04/28/16 04:09 Glucose 173 mg/dL (70-99) H 04/28/16 04:09 Calculated Osmolality 332 (280-300) H 04/28/16 04:09 Calcium 7.9 mg/dL (8.6-10.8) L 04/28/16 04:09 Serum Total Protein 4.9 g/dL (6.0-8.3) L 04/21/16 05:47 Albumin 2.0 g/dL (3.5-5.0) L D 04/21/16 05:47 Albumin/Globulin Ratio 0.7 (1.1-2.2) L 04/21/16 05:47 Urine Protein 30 mg/dL (Neg-Trace) H 04/20/16 01:41 Ur Leukocyte Esterase Trace (Negative) H 04/20/16 01:41 Urine Microscopic RBC 3-5 per hpf (0-3) H 04/20/16 01:41 Urine Microscopic WBC 3-5 per hpf (0-3) H 04/20/16 01:41 Ur Squamous Epith Cells Many per lpf (None-Few) H 04/20/16 01:41 Ur Culture Indicated? YES (NO) A 04/20/16 01:41 General appearance: Present: no acute distress - ENT Additional comments: Tongue with multiple small patches - Respiratory Additional comments: Faint crackles noted to bilateral bases. Currently on Oxygen 3 lpm - Cardiovascular Cardiovascular exam: Present: +S1, +S2 - GI/Abdominal GI/Abdominal exam: Present: normal bowel sounds, soft - Extremities Exam Extremities exam: Present: normal capillary refill, normal inspection - Neurological Exam Neurological exam: Present: alert Additional comments: Oriented to name and place. - Skin Skin exam: Present: dry, pallor, warm Palliative Quality Palliative Quality: Screen for Code Status: Yes, Screen for Goals of Care: Yes, Screen for Pain: Yes, If Pain Regimen Started, Initiate Bowel Regimen: NA, Screen for Nausea/Vomitting: Yes Code Status: 04/20/16 12:28 CODE [Resuscitation Status: Active] [RES] Routine Comment: Resuscitation Status: [id number] 04/20/16 12:39 CODE [Resuscitation Status: Active] [RES] Routine Comment: Do not intubate. Resuscitation Status: Full Code 04/21/16 14:58 DNR [Resuscitation Status: Active] [RES] Routine Comment: Resuscitation Status: Full Code 04/24/16 15:46 DNR [Resuscitation Status: Active] [RES] Routine Comment: Resuscitation Status: [id number] - Labs CBC & Chem 7: 04/28/16 04:09 04/28/16 04:09 Labs: Laboratory Results - last 24 hr 04/28/16 04/28/16 04:09 04:09 WBC 14.0 H RBC 3.35 L Hgb 9.0 L Hct 30.3 L MCV 90.4 MCH 26.9 L MCHC 29.7 L RDW 16.5 H Plt Count 137 L MPV 12.5 H Seg Neutrophils % 84.0 Band Neutrophils % 8.0 H Lymphocytes % 4.0 Monocytes % 4.0 Neutrophils # 12.9 H Lymphocytes # 0.6 Monocytes # 0.6 Hypersegmented Neuts Present A Platelet Estimate Normal Poikilocytosis 1+ A Target Cells 1+ A Stomatocytes 1+ A Sodium 147 H Potassium 4.9 H Chloride 111 H Carbon Dioxide 27 BUN 79 H Creatinine 1.10 Est GFR ( Amer) 57 L Est GFR (Non-Af Amer) 47 L BUN/Creatinine Ratio 72 H Glucose 173 H Calculated Osmolality 332 H Calcium 7.9 L - Impressions Impressions Chest X-Ray 04/27/16 10:58 IMPRESSION: The above findings are compatible with mild pulmonary edema. Superimposed pneumonia at the lung bases would be difficult to exclude. Continued radiographic follow-up recommended to ensure resolution. D/ / Ned Min MD / Ned Min MD Interpreting Provider: Ned Min MD - ABG Interpretation ABG results: ABG ABG pH 7.37 pH Units (7.32-7.45) 04/20/16 01:45 ABG pCO2 60 mmHg (35-45) H 04/20/16 01:45 ABG pO2 72 mmHg (85-104) L 04/20/16 01:45 ABG O2 Saturation 94 % (95-98) L 04/20/16 01:45 PT/INR, D-dimer PT 11.3 Seconds (9.4-12.1) 04/19/16 13:38 Consult Discharge Plan - Plan Referrals: Herbert Oswald MD [Primary Care Provider] -
[2016-04-28] MEDS: Nystatin SUSP 5 ML UD.LIQ PO SCH ×4 (10:37→20:31)
--- NOTE | 2016-04-28 10:51 | Internal Med Progress Note ---
Date of Encounter: 04/28/16 Time of Encounter: 10:48 - Assessment and plan (1) Acute and chronic respiratory failure Current Visit: Yes Status: Acute Assessment and plan: Patient has acute and chronic respiratory failure secondary to multifocal pneumonia possible aspiration, background COPD and bronchiectasis. jacob sbeen on inermittent BIPAP given hypoxia however given decreased mental status, as per pulmonary will avoid BIPAP for risk of aspiration. continue meropenem as urine culture grew Escherichia coli and Pseudomonas that is not sensitive to Zosyn, will complete 7 days of treatment. blood cx is negative. sputum cx growing gram negative rods. repeat CXR with not much improvemnt, CT done shows b/l infiltrates at basal area , most likely aspiration. looks better on the chart, requiring less 02 today . will transition to oral prednisone today, to finish 7 days IV antibiotics tomorrow. Qualifiers: Respiratory failure complication: hypoxia and hypercapnia Qualified Code(s) : J96.21 - Acute and chronic respiratory failure with hypoxia; J96.22 - Acute and chronic respiratory failure with hypercapnia (2) HCAP (healthcare-associated pneumonia) Current Visit: Yes Status: Acute Assessment and plan: Patient admitted with multifocal pneumonia possible 2/2 aspiration and started on Vancomycin and Zosyn. Patient had blood cultures x2 drawn in the ED with no growth since 04/19/16. Plan: - Continue meropenem to complete 7 days. - Continue DuoNeb treatments as scheduled - leucocytosis has improved. - will continue chest physiotherapy q shift, mucinex and give flutter valve for secretions., not much improvement given patient's generalized debilitation, immobility and advanced age with her comorbids and frequent aspiration. (3) Anemia, chronic disease Current Visit: No Status: Chronic Assessment and plan: Patient is anemia of chronic disease. h/h stable (4) Atrial fibrillation Current Visit: No Status: Chronic Assessment and plan: Patient rhythm is atrial fibrillation with HR around 100-115. Plan: Continue current management. Heart rate mid 50s today, we will decrease metoprolol to 12.5 twice a day, also on amiodarone for atrial fib. Not a candidate for anticoagulation. Continue aspirin only. Qualifiers: Atrial fibrillation type: paroxysmal Qualified Code(s): I48.0 - Paroxysmal atrial fibrillation (5) MARIO (acute kidney injury) Current Visit: Yes Status: Acute Assessment and plan: Has resolved. Plan: - Monitor volume status , IV fluids were stopped yesterday due to pulmonary congestion and extremity swelling. We will continue to monitor (6) Counseling regarding advanced care planning and goals of care Current Visit: Yes Status: Acute Assessment and plan: palliative on board, DNR-CCA -DNI for now,family does not want hospice at this time, requesting to be discharged to a different ECF, does not want to [facility]. - Time Spent With Patient 25 - 35 minutes - Subjective Interval history: Patient seen at the bedside, appears awake and alert, asking for food and something to drink. sautrating 97% on 3-4 L of o2 . IV fluids have been stopped yesterday given increased swelling of her extremities. Discussed with family yesterday, they do not want hospice at this time, requesting to be placed to a different ECF this time. - Constitutional Vitals: Temp Pulse Resp BP Pulse Ox 97.8 F 55 16 122/61 97 04/28/16 07:27 04/28/16 07:27 04/28/16 07:27 04/28/16 07:27 04/28/16 07:40 General appearance: Present: cooperative, pleasant, no acute distress Exam: neck- supple chest- b/l creptns, no wheezing heard cvs-s1 and s2, no mr/g/ abd-soft, non tender, bs are present ext- b/l upper and lower leg edema. neuro- awake and alert, moving all extremities. Internal Medicine: Result - Labs CBC & Chem 7: 04/28/16 04:09 04/28/16 04:09 Labs: Short CBC 04/28/16 Range/Units 04:09 WBC 14.0 H (4.3-11.1) K/mcL Hgb 9.0 L (11.5-15.4) g/dL Hct 30.3 L (35.3-44.9) % Plt Count 137 L (140-400) K/mcL Neutrophils # 12.9 H (1.6-8.9) K/mcL BMP 04/28/16 04:09 Sodium 147 H Potassium 4.9 H Chloride 111 H Carbon Dioxide 27 BUN 79 H Creatinine 1.10 Glucose 173 H Calcium 7.9 L - ABG Interpretation ABG results: ABG ABG pH 7.37 pH Units (7.32-7.45) 04/20/16 01:45 ABG pCO2 60 mmHg (35-45) H 04/20/16 01:45 ABG pO2 72 mmHg (85-104) L 04/20/16 01:45 ABG O2 Saturation 94 % (95-98) L 04/20/16 01:45 PT/INR, D-dimer PT 11.3 Seconds (9.4-12.1) 04/19/16 13:38 - Impressions Impressions Chest X-Ray 04/27/16 10:58 IMPRESSION: The above findings are compatible with mild pulmonary edema. Superimposed pneumonia at the lung bases would be difficult to exclude. Continued radiographic follow-up recommended to ensure resolution. D/ / Ned Min MD / Ned Min MD Interpreting Provider: Ned Min MD - VTE Documentation of Mechanical Device: Intermittent pneumatic compression device Consult Discharge Plan - Plan Referrals: Herbert Oswald MD [Primary Care Provider] -
[2016-04-28] MEDS: clonazePAM 0.5 MG TABLET PO SCH (20:31)
[2016-04-29] MEDS: Ipratropium/Albuterol Neb 3 ML IH SCH ×6 (04:42→23:02)
[2016-04-29] MEDS: *HR* Heparin 5,000 UNIT/ML VIAL SQ SCH ×2 (05:40→17:36)
[2016-04-29] MEDS: Meropenem 500 MG in 0.9 % Sodium Chloride Mini Bag 100 ML IVPB SCH ×2 (05:40→15:10)
[2016-04-29 08:12] LABS: Hematocrit 29.5 % (35.3-44.9); Immature Granulocytes % 0.6 % (0-4); Lymphocytes # 0.2 K/mcL (0.6-4.6); Lymphocytes % 1.2 %; Mean Corpuscular HGB Conc 30.5 g/dL (31.6-35.5); Mean Corpuscular Hemoglobin 26.5 pg (28.0-33.3); Mean Platelet Volume 12.6 fL (9.4-12.4); Monocytes # 0.4 K/mcL (0.0-1.3); Monocytes % 3.1 %; Neutrophils # 13.2 K/mcL (1.6-8.9); Platelet Count 132 K/mcL (140-400); Red Blood Count 3.39 M/mcL (3.82-4.97); Red Cell Distribution Width 16.2 % (11.5-14.5); Segmented Neutrophils % 95.1 %
[2016-04-29 08:24] LABS: Calcium 8.2 mg/dL (8.6-10.8); Potassium 4.9 mEq/L (3.5-4.5)
[2016-04-29 08:54] LABS: Platelet Estimate Normal (Normal)
[2016-04-29] MEDS: methylPREDNISolone 125 MG/2 ML VIAL IVP SCH ×2 (09:06→17:35)
[2016-04-29] MEDS: Nystatin SUSP 5 ML UD.LIQ PO SCH ×4 (09:06→20:59)
[2016-04-29] MEDS: Famotidine 20 MG TABLET PO SCH (09:07)
[2016-04-29] MEDS: amLODIPine 5 MG TABLET PO SCH (09:07)
[2016-04-29] MEDS: Aspirin Enteric Coated 81 MG Tablet PO SCH (09:07)
[2016-04-29] MEDS: Nystatin POWDER 30 GM BOTTLE TP SCH ×2 (09:07→21:02)
[2016-04-29] MEDS: *HR* Amiodarone 200 MG TABLET PO SCH (09:07)
--- NOTE | 2016-04-29 13:17 | Internal Med Progress Note ---
Date of Encounter: 04/29/16 Time of Encounter: 13:14 - Assessment and plan (1) Acute and chronic respiratory failure Current Visit: Yes Status: Acute Assessment and plan: Patient has acute and chronic respiratory failure secondary to multifocal pneumonia possible aspiration, background COPD and bronchiectasis. jacob sbeen on inermittent BIPAP given hypoxia however given decreased mental status, as per pulmonary will avoid BIPAP for risk of aspiration. will complete 7 days of meropenem today. blood cx is negative. sputum cx growing gram negative rods. repeat CXR with not much improvemnt, CT done shows b/l infiltrates at basal area , most likely aspiration. Qualifiers: Respiratory failure complication: hypoxia and hypercapnia Qualified Code(s) : J96.21 - Acute and chronic respiratory failure with hypoxia; J96.22 - Acute and chronic respiratory failure with hypercapnia (2) HCAP (healthcare-associated pneumonia) Current Visit: Yes Status: Acute Assessment and plan: Patient admitted with multifocal pneumonia possible 2/2 aspiration and started on Vancomycin and Zosyn. Patient had blood cultures x2 drawn in the ED with no growth since 04/19/16. Plan: - stop meropenem today. - Continue DuoNeb treatments as scheduled - leucocytosis has improved. - will continue chest physiotherapy q shift, mucinex and give flutter valve for secretions., not much improvement given patient's generalized debilitation, immobility and advanced age with her comorbids and frequent aspiration. (3) Anemia, chronic disease Current Visit: No Status: Chronic Assessment and plan: Patient is anemia of chronic disease. h/h stable (4) Atrial fibrillation Current Visit: No Status: Chronic Assessment and plan: Patient rhythm is atrial fibrillation with HR around 100-115. Plan: Continue current management. Heart rate mid 50s today, we will decrease metoprolol to 12.5 twice a day, also on amiodarone for atrial fib. Not a candidate for anticoagulation. Continue aspirin only. Qualifiers: Atrial fibrillation type: paroxysmal Qualified Code(s): I48.0 - Paroxysmal atrial fibrillation (5) MARIO (acute kidney injury) Current Visit: Yes Status: Acute Assessment and plan: Has improved compared to before, Plan: - Monitor volume status , IV fluids were stopped due to pulmonary congestion and extremity swelling. We will continue to monitor (6) Counseling regarding advanced care planning and goals of care Current Visit: Yes Status: Acute Assessment and plan: palliative on board, DNR-CCA -DNI for now,family does not want hospice at this time, requesting to be discharged to a different ECF, does not want to take her back to [facility]. - Time Spent With Patient 25 - 35 minutes - Subjective Interval history: Patient seen at the bedside, appears awake and alert, eating breakfast this morning. sautrating 97% on 3-4 L of o2 . abbie finish 7 days of antibiotics today. Discussed with family , they do not want hospice at this time, requesting to be placed to a different ECF this time. - Constitutional Vitals: Temp Pulse Resp BP Pulse Ox 97.6 F 109 20 125/66 95 04/29/16 07:34 04/29/16 07:34 04/29/16 11:28 04/29/16 07:34 04/29/16 11:28 General appearance: Present: cooperative, pleasant, no acute distress Exam: neck- supple chest- b/l creptns but sounds better than yesterday. cvs-s1 and s2, no mr/g/ abd-soft , non tender, bs are present ext- b/l upper and lower ext edema neuro- seems to be at her baseline. Internal Medicine: Result - Labs CBC & Chem 7: 04/29/16 08:00 04/29/16 08:00 Labs: Short CBC 04/29/16 Range/Units 08:00 WBC 13.9 H (4.3-11.1) K/mcL Hgb 9.0 L (11.5-15.4) g/dL Hct 29.5 L (35.3-44.9) % Plt Count 132 L (140-400) K/mcL Neutrophils # 13.2 H (1.6-8.9) K/mcL BMP 04/29/16 08:00 Sodium 148 H Potassium 4.9 H Chloride 111 H Carbon Dioxide 29 BUN 90 H Creatinine 1.14 H Glucose 177 H Calcium 8.2 L - ABG Interpretation ABG results: ABG ABG pH 7.37 pH Units (7.32-7.45) 04/20/16 01:45 ABG pCO2 60 mmHg (35-45) H 04/20/16 01:45 ABG pO2 72 mmHg (85-104) L 04/20/16 01:45 ABG O2 Saturation 94 % (95-98) L 04/20/16 01:45 PT/INR, D-dimer PT 11.3 Seconds (9.4-12.1) 04/19/16 13:38 - Impressions Impressions Videofluoroscopic Swallow 04/28/16 09:07 IMPRESSION: Swallowing mechanism grossly within normal limits without evidence of aspiration. Please see separate speech pathology report for full discussion of findings and recommendations. D/ / Jorge Luis Kaur MD / Jorge Luis Kaur MD Interpreting Provider: Jorge Luis Kaur MD - VTE Documentation of Mechanical Device: Intermittent pneumatic compression device Consult Discharge Plan - Plan Referrals: Herbert Oswald MD [Primary Care Provider] -
[2016-04-29] MEDS: clonazePAM 0.5 MG TABLET PO SCH (20:59)
[2016-04-30] MEDS: methylPREDNISolone 125 MG/2 ML VIAL IVP SCH ×2 (01:09→13:14)
[2016-04-30] MEDS: Ipratropium/Albuterol Neb 3 ML IH SCH ×6 (04:09→23:12)
[2016-04-30] MEDS: Meropenem 500 MG in 0.9 % Sodium Chloride Mini Bag 100 ML IVPB SCH (04:23)
[2016-04-30] MEDS: *HR* Heparin 5,000 UNIT/ML VIAL SQ SCH ×2 (06:05→16:48)
[2016-04-30] MEDS: Aspirin Enteric Coated 81 MG Tablet PO SCH (09:49)
[2016-04-30] MEDS: amLODIPine 5 MG TABLET PO SCH (09:49)
[2016-04-30] MEDS: Nystatin SUSP 5 ML UD.LIQ PO SCH ×4 (09:49→21:33)
[2016-04-30] MEDS: Famotidine 20 MG TABLET PO SCH (09:50)
[2016-04-30] MEDS: *HR* Amiodarone 200 MG TABLET PO SCH (09:50)
[2016-04-30] MEDS: Nystatin POWDER 30 GM BOTTLE TP SCH ×2 (09:50→21:34)
--- NOTE | 2016-04-30 10:08 | Palliative Progress Note ---
Date of Encounter: 04/30/16 Time of Encounter: 09:50 - Assessment and plan (1) Thrush, oral Current Visit: Yes Status: Acute Assessment and plan: Continue Nystatin qid. Patient states this is feeling better. (2) Dyspnea Current Visit: Yes Status: Acute Assessment and plan: Appears improved. Remains risk for aspiration. Appears to be doing ok with altered diet and honey consistancy liquids. Qualifiers: Dyspnea type: unspecified Qualified Code(s): R06.00 - Dyspnea, unspecified (3) Counseling regarding advanced care planning and goals of care Current Visit: Yes Status: Acute Assessment and plan[facility] (4) Acute and chronic respiratory failure Current Visit: Yes Status: Acute Qualifiers: Respiratory failure complication: hypoxia and hypercapnia Qualified Code(s) : J96.21 - Acute and chronic respiratory failure with hypoxia; J96.22 - Acute and chronic respiratory failure with hypercapnia (5) HCAP (healthcare-associated pneumonia) Current Visit: Yes Status: Acute - Time Spent With Patient Total time spent is greater than 50% in coordination of care (as documented) at patient's floor/unit and/or counseling patient: 25 - 35 minutes - Subjective Interval history: Patient awake and alert, Oriented to name only this am, pleasantly confused. Did state that her mouth feels much better. No family present. - Constitutional Vitals: Abnormal lab results WBC 13.9 K/mcL (4.3-11.1) H 04/29/16 08:00 RBC 3.39 M/mcL (3.82-4.97) L 04/29/16 08:00 Hgb 9.0 g/dL (11.5-15.4) L 04/29/16 08:00 Hct 29.5 % (35.3-44.9) L 04/29/16 08:00 MCH 26.5 pg (28.0-33.3) L 04/29/16 08:00 MCHC 30.5 g/dL (31.6-35.5) L 04/29/16 08:00 RDW 16.2 % (11.5-14.5) H 04/29/16 08:00 Plt Count 132 K/mcL (140-400) L 04/29/16 08:00 MPV 12.6 fL (9.4-12.4) H 04/29/16 08:00 Band Neutrophils % 8.0 % (0-4) H 04/28/16 04:09 Neutrophils # 13.2 K/mcL (1.6-8.9) H 04/29/16 08:00 Lymphocytes # 0.2 K/mcL (0.6-4.6) L 04/29/16 08:00 Hypersegmented Neuts Present (Not Present) A 04/28/16 04:09 Clumped Platelets Few (Not Present) A 04/24/16 04:32 Hypochromasia Present (Not Present) A 04/26/16 04:57 Poikilocytosis 1+ (Not Present) A 04/28/16 04:09 Basophilic Stippling 1+ (Not Present) A 04/23/16 08:35 Anisocytosis 1+ (Not Present) A 04/26/16 04:57 Target Cells 1+ (Not Present) A 04/28/16 04:09 Stomatocytes 1+ (Not Present) A 04/28/16 04:09 ABG pCO2 60 mmHg (35-45) H 04/20/16 01:45 ABG pO2 72 mmHg (85-104) L 04/20/16 01:45 ABG HCO3 34.7 mEQ/L (21-27) H 04/20/16 01:45 ABG Total CO2 36.5 mEq/L (20-26) H 04/20/16 01:45 ABG O2 Saturation 94 % (95-98) L 04/20/16 01:45 ABG Base Excess 8.2 mEq/L (-2.0 to 3.0) H 04/20/16 01:45 VBG pCO2 58 mmHg (41-51) H 04/25/16 01:31 VBG pO2 150 mmHg (25-40) H 04/25/16 01:31 VBG HCO3 36.8 mEq/L (21-27) H 04/25/16 01:31 Sodium 148 mEq/L (136-145) H 04/29/16 08:00 Potassium 4.9 mEq/L (3.5-4.5) H 04/29/16 08:00 Chloride 111 mEq/L (98-109) H 04/29/16 08:00 BUN 90 mg/dL (7-20) H 04/29/16 08:00 Creatinine 1.14 mg/dL (0.57-1.11) H 04/29/16 08:00 Est GFR ( Amer) 55 (> 60) L 04/29/16 08:00 Est GFR (Non-Af Amer) 45 (> 60) L 04/29/16 08:00 BUN/Creatinine Ratio 79 (6-26) H 04/29/16 08:00 Glucose 177 mg/dL (70-99) H 04/29/16 08:00 Calculated Osmolality 338 (280-300) H 04/29/16 08:00 Calcium 8.2 mg/dL (8.6-10.8) L 04/29/16 08:00 Serum Total Protein 4.9 g/dL (6.0-8.3) L 04/21/16 05:47 Albumin 2.0 g/dL (3.5-5.0) L D 04/21/16 05:47 Albumin/Globulin Ratio 0.7 (1.1-2.2) L 04/21/16 05:47 Urine Protein 30 mg/dL (Neg-Trace) H 04/20/16 01:41 Ur Leukocyte Esterase Trace (Negative) H 04/20/16 01:41 Urine Microscopic RBC 3-5 per hpf (0-3) H 04/20/16 01:41 Urine Microscopic WBC 3-5 per hpf (0-3) H 04/20/16 01:41 Ur Squamous Epith Cells Many per lpf (None-Few) H 04/20/16 01:41 Ur Culture Indicated? YES (NO) A 04/20/16 01:41 General appearance: Present: no acute distress - Respiratory Additional comments: Scattered rhonchi throughout anterior chest. - Cardiovascular Cardiovascular exam: Present: +S1, +S2 - GI/Abdominal GI/Abdominal exam: Present: normal bowel sounds, soft - Extremities Exam Extremities exam: Present: normal capillary refill, normal inspection - Neurological Exam Neurological exam: Present: alert, altered - Skin Skin exam: Present: dry, pallor, warm Palliative Quality Palliative Quality: Screen for Code Status: Yes, Screen for Goals of Care: Yes, Screen for Pain: Yes, If Pain Regimen Started, Initiate Bowel Regimen: NA, Screen for Nausea/Vomitting: Yes Code Status: 04/20/16 12:28 CODE [Resuscitation Status: Active] [RES] Routine Comment: Resuscitation Status: [id number] 04/20/16 12:39 CODE [Resuscitation Status: Active] [RES] Routine Comment: Do not intubate. Resuscitation Status: Full Code 04/21/16 14:58 DNR [Resuscitation Status: Active] [RES] Routine Comment: Resuscitation Status: Full Code 04/24/16 15:46 DNR [Resuscitation Status: Active] [RES] Routine Comment: Resuscitation Status: [id number] - Labs CBC & Chem 7: 04/29/16 08:00 04/29/16 08:00 - Impressions Impressions Videofluoroscopic Swallow 04/28/16 09:07 IMPRESSION: Swallowing mechanism grossly within normal limits without evidence of aspiration. Please see separate speech pathology report for full discussion of findings and recommendations. D/ / Jorge Luis Kaur MD / Jorge Luis Kaur MD Interpreting Provider: Jorge Luis Kaur MD - ABG Interpretation ABG results: ABG ABG pH 7.37 pH Units (7.32-7.45) 04/20/16 01:45 ABG pCO2 60 mmHg (35-45) H 04/20/16 01:45 ABG pO2 72 mmHg (85-104) L 04/20/16 01:45 ABG O2 Saturation 94 % (95-98) L 04/20/16 01:45 PT/INR, D-dimer PT 11.3 Seconds (9.4-12.1) 04/19/16 13:38 Consult Discharge Plan - Plan Referrals: Herbert Oswald MD [Primary Care Provider] -
--- NOTE | 2016-04-30 16:42 | Internal Med Progress Note ---
Date of Encounter: 04/30/16 Time of Encounter: 16:39 - Assessment and plan (1) Acute and chronic respiratory failure Current Visit: Yes Status: Acute Assessment and plan: Patient has acute and chronic respiratory failure secondary to multifocal pneumonia possible aspiration, background COPD and bronchiectasis. has been weaned off BIPAP and is tolertaing well on 3-4 l of o2. doing much better. antibiotics has been stopped after completion of 7 days. blood cx is negative. sputum cx grew gram negative rods. repeat CXR with not much improvemnt, CT done shows b/l infiltrates at basal area , most likely aspiration. Qualifiers: Respiratory failure complication: hypoxia and hypercapnia Qualified Code(s) : J96.21 - Acute and chronic respiratory failure with hypoxia; J96.22 - Acute and chronic respiratory failure with hypercapnia (2) HCAP (healthcare-associated pneumonia) Current Visit: Yes Status: Acute Assessment and plan: Patient admitted with multifocal pneumonia possible 2/2 aspiration . Patient had blood cultures x2 drawn in the ED with no growth since 04/19/16. Plan: -has finished IV antibiotics yesterday. - Continue DuoNeb treatments as scheduled - leucocytosis has improved. - will continue chest physiotherapy q shift, mucinex and give flutter valve for secretions., not much improvement given patient's generalized debilitation, immobility and unable to cough out her secretions, and advanced age with her comorbids and frequent aspiration. - (3) Anemia, chronic disease Current Visit: No Status: Chronic Assessment and plan: Patient is anemia of chronic disease. h/h stable (4) Atrial fibrillation Current Visit: No Status: Chronic Assessment and plan: Patient rhythm is atrial fibrillation with HR around 100-115. Plan: Continue current management. Heart rate fluctuates, will continue metoprolol. Not a candidate for anticoagulation. Continue aspirin only. Qualifiers: Atrial fibrillation type: paroxysmal Qualified Code(s): I48.0 - Paroxysmal atrial fibrillation (5) MARIO (acute kidney injury) Current Visit: Yes Status: Acute Assessment and plan: Has improved compared to before, Plan: - Monitor volume status , IV fluids were stopped due to pulmonary congestion and extremity swelling. We will continue to monitor (6) Counseling regarding advanced care planning and goals of care Current Visit: Yes Status: Acute Assessment and plan: palliative on board, DNR-CCA -DNI for now,family does not want hospice at this time, very resistant at the idea of discharge, stable for dc to ECF at this time from medical standpoint, she needs rehab, no active treatment for now, aspiration precautions and generalized supportive care. case discussed with the family, requesting for 1 more day. - Time Spent With Patient 25 - 35 minutes - Subjective Interval history: Patient seen at the bedside, appears awake and alert, seems clinically better, conversing well. sautrating 97% on 3-4 L of o2 . antibiotics has been stopped after completion of 7 days. Patient is stable to be discharged from medical standpoint at this time, family not agreeable. - Constitutional Vitals: Temp Pulse Resp BP Pulse Ox 98.1 F 116 18 134/71 99 04/30/16 15:00 04/30/16 15:00 04/30/16 15:00 04/30/16 15:00 04/30/16 15:00 General appearance: Present: cooperative, pleasant, no acute distress Exam: neck- supple chest- b/l creptns and conducted sounds. cvs-s1 and s2, no mr/g/ abd-soft , non tender, bs are present ext- b/l upper and lower ext edema that has improved. neuro- seems to be at her baseline. Internal Medicine: Result - Labs CBC & Chem 7: 04/29/16 08:00 04/29/16 08:00 - ABG Interpretation ABG results: ABG ABG pH 7.37 pH Units (7.32-7.45) 04/20/16 01:45 ABG pCO2 60 mmHg (35-45) H 04/20/16 01:45 ABG pO2 72 mmHg (85-104) L 04/20/16 01:45 ABG O2 Saturation 94 % (95-98) L 04/20/16 01:45 PT/INR, D-dimer PT 11.3 Seconds (9.4-12.1) 04/19/16 13:38 - VTE Documentation of Mechanical Device: Intermittent pneumatic compression device Consult Discharge Plan - Plan Referrals: Herbert Oswald MD [Primary Care Provider] -
[2016-04-30] MEDS: predniSONE 20 MG TABLET PO SCH (16:48)
[2016-04-30] MEDS: clonazePAM 0.5 MG TABLET PO SCH (21:34)
[2016-05-01] MEDS: Ipratropium/Albuterol Neb 3 ML IH SCH ×3 (04:08→11:38)
[2016-05-01 05:25] LABS: Hematocrit 29.1 % (35.3-44.9); Hemoglobin 8.9 g/dL (11.5-15.4); Immature Granulocytes % 1.1 % (0-4); Lymphocytes # 0.2 K/mcL (0.6-4.6); Mean Corpuscular HGB Conc 30.6 g/dL (31.6-35.5); Mean Corpuscular Hemoglobin 26.6 pg (28.0-33.3); Mean Corpuscular Volume 87.1 fL (83.0-100.0); Mean Platelet Volume 13.2 fL (9.4-12.4); Monocytes # 0.8 K/mcL (0.0-1.3); Monocytes % 3.7 %; Neutrophils # 20.6 K/mcL (1.6-8.9); Platelet Count 106 K/mcL (140-400); Red Blood Count 3.34 M/mcL (3.82-4.97); Red Cell Distribution Width 16.7 % (11.5-14.5); Segmented Neutrophils % 94.2 %
[2016-05-01 05:49] LABS: Calcium 8.1 mg/dL (8.6-10.8); Potassium 5.3 mEq/L (3.5-4.5)
[2016-05-01] MEDS: *HR* Heparin 5,000 UNIT/ML VIAL SQ SCH ×2 (05:55→18:47)
[2016-05-01] MEDS: Aspirin Enteric Coated 81 MG Tablet PO SCH (08:28)
[2016-05-01] MEDS: *HR* Amiodarone 200 MG TABLET PO SCH (08:28)
[2016-05-01] MEDS: Nystatin SUSP 5 ML UD.LIQ PO SCH ×4 (08:28→21:02)
[2016-05-01] MEDS: predniSONE 20 MG TABLET PO SCH (08:28)
[2016-05-01] MEDS: amLODIPine 5 MG TABLET PO SCH (08:28)
[2016-05-01] MEDS: Famotidine 20 MG TABLET PO SCH (08:28)
[2016-05-01] MEDS: Nystatin POWDER 30 GM BOTTLE TP SCH ×2 (08:47→21:03)
[2016-05-01 15:38] LABS: Calcium 7.9 mg/dL (8.6-10.8); Potassium 5.3 mEq/L (3.5-4.5); Uric Acid 8.7 mg/dL (2.6-6.0)
[2016-05-01] MEDS: Piperacillin/Tazobactam 3.375 GM in D5% in Water (Mini-Bag+) 100 ML IVPB SCH (15:46)
[2016-05-01] MEDS ORDERED: Furosemide 240 MG in D5% in Water 96 ML IVC SCH (15:53)
--- NOTE | 2016-05-01 15:59 | Internal Med Progress Note ---
Date of Encounter: 05/01/16 Time of Encounter: 15:30 - Assessment and plan (1) Acute and chronic respiratory failure Current Visit: Yes Status: Acute Assessment and plan: Patient uses 3L of oxygen via NC at home for COPD with bronchiectasis. On 04/19, patient was admitted with acute respiratory failure secondary to recurrent aspiration PNA, infected bronchiectasis and COPD exacerbation. She required up to 9L Nc and BIPAP at bedtime. 05/01: WBC is trending up after stopping Meropenem yesterday (course 04/23-04/30). Also, she has developed acute diastolic heart failure likely from fluid resuscitation and moderate aortic regurgitation and pulmonary hypertension. Patient is tolerating well 4L NC. repeat CXR. Start Zosyn. continue to wean down to keep SaO2 >92%. Start lasix drip at a low rate. Place in ghotra catheter to close monitor of I/O. fluid restriction 1.5 L/day. continue metoprolol. change nebs to xopenex and atrovent q4hr. continue mucinex and start tapering down systemic steroids. continue pureed diet and honey thickened liquids. 04/27: CXR showed mild pulmonary vascular congestion. 04/24: CT chest showed bilateral pulmonary infiltrates with possible underlying nodular densities. right hilar mass or infiltrate. small pericardial and left pleural effusions. 04/28: Videofluoroscopic swallow shows no aspiration. 03/31/16: echocardiogram showed LVEF 65%, mild LV diastolic dysfunction, moderate aortic regurgitation, moderate pulmonary hypertension. 12/11/15: negative stress test. Qualifiers: Respiratory failure complication: hypoxia and hypercapnia Qualified Code(s) : J96.21 - Acute and chronic respiratory failure with hypoxia; J96.22 - Acute and chronic respiratory failure with hypercapnia (2) Acute worsening of stage 3 chronic kidney disease Current Visit: Yes Status: Acute Assessment and plan: GFR slowly trending up to 48. BUN trending up to 94. will start lasix drip at a lower rate. close monitoring of kidney function. avoid nephrotoxins as possible. (3) Acute metabolic encephalopathy Current Visit: Yes Status: Acute Assessment and plan: multifactorial from PNA, COPD, hospitalization, old age. treat underlying etiology. (4) HCAP (healthcare-associated pneumonia) Current Visit: Yes Status: Acute Assessment and plan: plan as above. (5) Diastolic heart failure Current Visit: Yes Status: Acute Assessment and plan: plan as above. Qualifiers: Heart failure chronicity: acute Qualified Code(s): I50.31 - Acute diastolic (congestive) heart failure (6) Pulmonary hypertension Current Visit: Yes Status: Acute Assessment and plan: plan as above. (7) Moderate aortic regurgitation Current Visit: Yes Status: Acute Assessment and plan: plan as above, (8) COPD (chronic obstructive pulmonary disease) Current Visit: Yes Status: Acute Assessment and plan: plan as above. Qualifiers: COPD type: unspecified COPD Qualified Code(s): J44.9 - Chronic obstructive pulmonary disease, unspecified (9) Atrial fibrillation Current Visit: No Status: Chronic Assessment and plan: HR fluctuates in the 100-115 range. Not a candidate for anticoagulation. continue metoprolol, amiodarone and aspirin. Qualifiers: Atrial fibrillation type: paroxysmal Qualified Code(s): I48.0 - Paroxysmal atrial fibrillation (10) Hypertension Current Visit: No Status: Chronic Assessment and plan: controlled. holding home dose of losartan, and amlodipine. Qualifiers: Hypertension type: essential hypertension Qualified Code(s): I10 - Essential (primary) hypertension (11) Anemia, chronic disease Current Visit: No Status: Chronic Assessment and plan: Hgb stable at 8.9. no signs of bleeding. continue to monitors. (12) Failure to thrive in adult Current Visit: Yes Status: Acute Assessment and plan: PT/OT. plan to dc to [facility]. - Subjective Interval history: Patient is confused. She has no complaints. WBC up to 21. BUN up to 94. GFR 48. - Constitutional Vitals: Temp Pulse Resp BP Pulse Ox 98.0 F 116 16 105/63 97 05/01/16 04:58 05/01/16 04:58 05/01/16 11:38 05/01/16 04:58 05/01/16 11:38 General appearance: Present: A&O X 2, pleasant, no acute distress Exam: She answers some questions. - Eye Eye exam: Present: PERRL, sclera anicteric - Neck Neck exam general surgery: Present: supple, trachea midline. Absent: lymphadenopathy - Respiratory Respiratory exam: Present: rales (at lung bases). Absent: wheezes - Cardiovascular Cardiovascular exam: Present: RRR - GI/Abdominal GI/Abdominal exam: Present: normal bowel sounds, soft. Absent: tenderness - Extremities Exam Extremities exam: Present: pedal edema (3+ LE edema up to the abdomen. 3+ UE edema. ) - Neurological Exam Neurological exam: Present: alert, strengths equal and symetr throughout (but decreased to 3/5) - Skin Skin exam: Present: dry. Absent: rash Internal Medicine: Result - Labs CBC & Chem 7: 05/01/16 04:53 05/01/16 15:12 Labs: Short CBC 05/01/16 Range/Units 04:53 WBC 21.9 H D (4.3-11.1) K/mcL Hgb 8.9 L (11.5-15.4) g/dL Hct 29.1 L (35.3-44.9) % Plt Count 106 L (140-400) K/mcL Neutrophils # 20.6 H (1.6-8.9) K/mcL BMP 05/01/16 04:53 Sodium 153 H Potassium 5.3 H Chloride 114 H Carbon Dioxide 31 H BUN 94 H Creatinine 1.08 Glucose 178 H Calcium 8.1 L - ABG Interpretation ABG results: ABG ABG pH 7.37 pH Units (7.32-7.45) 04/20/16 01:45 ABG pCO2 60 mmHg (35-45) H 04/20/16 01:45 ABG pO2 72 mmHg (85-104) L 04/20/16 01:45 ABG O2 Saturation 94 % (95-98) L 04/20/16 01:45 PT/INR, D-dimer PT 11.3 Seconds (9.4-12.1) 04/19/16 13:38 - VTE Documentation of Mechanical Device: Intermittent pneumatic compression device Consult Discharge Plan - Plan Instructions: Atrial Fibrillation (DC), Failure to Thrive (DC), Failure to Thrive (GEN), Acute Kidney Injury (DC), Acute Kidney Injury (GEN), Syncope (DC) , Chronic Obstructive Pulmonary Disease (DC), Chronic Hypertension (DC), Pneumonia (DC) Referrals: Herbert Oswald MD [Primary Care Provider] -
[2016-05-01] MEDS: Ipratropium 1 PUFF INHALER IH SCH ×3 (17:06→23:45)
[2016-05-01] MEDS: Levalbuterol Neb 0.63 MG/3 ML IH SCH ×3 (17:07→23:46)
[2016-05-01] MEDS: Acetylcysteine 10% 2 ML INHSOL IH SCH ×2 (17:07→23:47)
[2016-05-01 18:17] LABS: Bilirubin,Urine Negative (Negative); Blood,Urine Negative (Negative); Clarity,Urine Cloudy (Clear); Color,Urine Yellow (Yellow); Glucose,Urine (UA) Normal (Normal); Ketones,Urine Negative (Negative); Leukocyte Esterase,Urine Negative (Negative); Nitrite,Urine Negative (Negative); Protein,Urine 30 mg/dL (Neg-Trace); Specific Gravity,Urine 1.023 (1.010-1.025); Urobilinogen,Urine Normal (Normal)
[2016-05-01 18:20] LABS: Bacteria,Urine None Seen per hpf (None-Few); Hyaline Casts,Urine None Seen per lpf (None-Few); Squamous Epithelial Cell,Urine Many per lpf (None-Few); WBC,Urine 0-3 per hpf (0-3)
[2016-05-01 18:22] LABS: Creatinine,Urine 62 mg/dL
[2016-05-01 18:59] LABS: Sodium, Urine < 20.0 mEq/L
[2016-05-01] MEDS: clonazePAM 0.5 MG TABLET PO SCH (21:03)
[2016-05-02] MEDS: Piperacillin/Tazobactam 3.375 GM in D5% in Water (Mini-Bag+) 100 ML IVPB SCH ×3 (00:48→17:46)
[2016-05-02] MEDS: Ipratropium 1 PUFF INHALER IH SCH ×6 (03:58→23:30)
[2016-05-02] MEDS: Levalbuterol Neb 0.63 MG/3 ML IH SCH ×6 (03:58→23:15)
[2016-05-02 04:10] LABS: Basophils % 0.1 %; Hemoglobin 8.8 g/dL (11.5-15.4); Lymphocytes % 1.3 %
[2016-05-02 04:12] LABS: Hematocrit 29.4 % (35.3-44.9); Immature Granulocytes % 1.2 % (0-4); Immature Platelets 10.4 % (1.1-6.1); Lymphocytes # 0.3 K/mcL (0.6-4.6); Mean Corpuscular HGB Conc 29.9 g/dL (31.6-35.5); Mean Corpuscular Volume 86.7 fL (83.0-100.0); Mean Platelet Volume 13.1 fL (9.4-12.4); Monocytes # 0.9 K/mcL (0.0-1.3); Monocytes % 4.4 %; Red Blood Count 3.39 M/mcL (3.82-4.97); Red Cell Distribution Width 16.5 % (11.5-14.5)
[2016-05-02 04:13] LABS: Albumin/Globulin Ratio 0.7 (1.1-2.2); Bilirubin,Total 0.4 mg/dL (0.2-1.2); Globulin 2.3 g/dL (2.4-3.5); Magnesium 2.6 mg/dL (1.6-2.6); Phosphorous 3.6 mg/dL (2.3-4.7); Potassium 4.3 mEq/L (3.5-4.5)
[2016-05-02 04:15] LABS: Neutrophils # 18.1 K/mcL (1.6-8.9); Platelet Count 92 K/mcL (140-400)
[2016-05-02 04:19] LABS: Albumin 1.7 g/dL (3.5-5.0)
[2016-05-02] MEDS: *HR* Heparin 5,000 UNIT/ML VIAL SQ SCH ×2 (05:28→17:44)
[2016-05-02] MEDS ORDERED: D5% in Water 1,000 ML IVC SCH (07:30)
[2016-05-02] MEDS: Acetylcysteine 10% 2 ML INHSOL IH SCH ×3 (07:44→23:16)
[2016-05-02] MEDS ORDERED: Albumin 25% 25gram/100mL 25 GM/100 ML IV.SOLN IVPB ONE (08:00)
[2016-05-02] MEDS: *HR* Amiodarone 200 MG TABLET PO SCH (08:07)
[2016-05-02] MEDS: predniSONE 20 MG TABLET PO SCH (08:07)
[2016-05-02] MEDS: Famotidine 20 MG TABLET PO SCH (08:08)
[2016-05-02] MEDS: Aspirin Enteric Coated 81 MG Tablet PO SCH (08:08)
[2016-05-02] MEDS: Nystatin POWDER 30 GM BOTTLE TP SCH ×2 (08:09→22:37)
[2016-05-02] MEDS: Nystatin SUSP 5 ML UD.LIQ PO SCH ×5 (08:09→22:46)
[2016-05-02] MEDS ORDERED: Lidocaine -MPF 1% 5 ML AMPUL INFILT ONE (08:24)
--- NOTE | 2016-05-02 08:37 | Internal Med Progress Note ---
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 On 04/19, patient was admitted with acute respiratory failure secondary to recurrent aspiration PNA, infected bronchiectasis and COPD exacerbation. She required up to 9L N[place] and BIPAP at bedtime. 05/01: WBC is trending up after stopping Meropenem (course 04/23-04/30). Also, she has developed acute diastolic heart failure likely from fluid resuscitation and moderate aortic regurgitation and pulmonary hypertension. 05/02: CXR showed new focal opacities in the right mid lung. clinically with diffuse edema and WBC slightly trending down to 19. continue lasix drip, empiric Zosyn, metoprolol, mucinex, nebs. Patient is tolerating well 3L NC. continue to wean down to keep SaO2 >92%. Close monitor of I/O. fluid restriction 1.5 L/day. continue pureed diet and honey thickened liquids. I will update family about patient condition, recurrent aspiration PNA and very poor prognosis. 04/27: CXR showed mild pulmonary vascular congestion. 04/24: CT chest showed bilateral pulmonary infiltrates with possible underlying nodular densities. right hilar mass or infiltrate. small pericardial and left pleural effusions. 04/28: Videofluoroscopic swallow shows no aspiration. 03/31/16: echocardiogram showed LVEF 65%, mild LV diastolic dysfunction, moderate aortic regurgitation, moderate pulmonary hypertension. 12/11/15: negative stress test. Qualifiers: Respiratory failure complication: hypoxia and hypercapnia Qualified Code(s) : J96.21 - Acute and chronic respiratory failure with hypoxia; J96.22 - Acute and chronic respiratory failure with hypercapnia (2) Acute worsening of stage 3 chronic kidney disease Current Visit: Yes Status: Acute Assessment and plan: GFR at 46. BUN trending down to 89. continue lasix drip at a low rate. close monitoring of kidney function. avoid nephrotoxins as possible. (3) Acute hypernatremia Current Visit: Yes Status: Acute Assessment and plan: Na up to 156, I will give a short course of IV dextrose with water for a few hours and IV albumin. repeat bmp at noon. (4) Acute metabolic encephalopathy Current Visit: Yes Status: Acute Assessment and plan: multifactorial from PNA, COPD, hospitalization, old age. treat underlying etiology. (5) HCAP (healthcare-associated pneumonia) Current Visit: Yes Status: Acute Assessment and plan: plan as above. (6) Diastolic heart failure Current Visit: Yes Status: Acute Assessment and plan: plan as above. Qualifiers: Heart failure chronicity: acute Qualified Code(s): I50.31 - Acute diastolic (congestive) heart failure (7) Pulmonary hypertension Current Visit: Yes Status: Acute Assessment and plan: plan as above. (8) Moderate aortic regurgitation Current Visit: Yes Status: Acute Assessment and plan: plan as above, (9) COPD (chronic obstructive pulmonary disease) Current Visit: Yes Status: Acute Assessment and plan: plan as above. Qualifiers: COPD type: unspecified COPD Qualified Code(s): J44.9 - Chronic obstructive pulmonary disease, unspecified (10) Atrial fibrillation Current Visit: No Status: Chronic Assessment and plan: HR fluctuates in the 100-115 range. Not a candidate for anticoagulation. continue metoprolol, amiodarone and aspirin. Qualifiers: Atrial fibrillation type: paroxysmal Qualified Code(s): I48.0 - Paroxysmal atrial fibrillation (11) Hypertension Current Visit: No Status: Chronic Assessment and plan: controlled. holding home dose of losartan, and amlodipine. Qualifiers: Hypertension type: essential hypertension Qualified Code(s): I10 - Essential (primary) hypertension (12) Anemia, chronic disease Current Visit: No Status: Chronic Assessment and plan: Hgb stable at 8.9. no signs of bleeding. continue to monitors. (13) Failure to thrive in adult Current Visit: Yes Status: Acute Assessment and plan: PT/OT. plan to dc to community healthcare system. (14) Diarrhea Current Visit: Yes Status: Acute Assessment and plan: negative c diff. could be from antibiotic use Qualifiers: Diarrhea type: unspecified type Qualified Code(s): R19.7 - Diarrhea, unspecified - Subjective Interval history: Patient is confused. She has no complaints. - Constitutional Vitals: Temp Pulse Resp BP Pulse Ox 99.1 F 107 18 108/65 95 05/02/16 07:22 05/02/16 07:22 05/02/16 07:44 05/02/16 07:22 05/02/16 07:44 General appearance: Present: A&O X 2, pleasant, no acute distress - Eye Eye exam: Present: sclera anicteric - Neck Neck exam general surgery: Present: supple, trachea midline. Absent: lymphadenopathy - Respiratory Respiratory exam: Present: rales (in lower lung morales) - Cardiovascular Cardiovascular exam: Present: RRR - GI/Abdominal GI/Abdominal exam: Present: normal bowel sounds, soft. Absent: distended, tenderness - Extremities Exam Additional comments: diffuse edema in upper and lower extremities, abdominal wall and back. - Neurological Exam Neurological exam: Present: alert, oriented X3. Absent: facial droop, speech deficit - Skin Skin exam: Present: dry. Absent: rash Internal Medicine: Result - Labs CBC & Chem 7: 05/02/16 03:33 05/02/16 12:28 Labs: Short CBC 05/02/16 Range/Units 03:33 WBC 19.5 H (4.3-11.1) K/mcL Hgb 8.8 L (11.5-15.4) g/dL Hct 29.4 L (35.3-44.9) % Plt Count 92 L (140-400) K/mcL Neutrophils # 18.1 H (1.6-8.9) K/mcL BMP 05/01/16 05/02/16 15:12 03:33 Sodium 152 H 156 H Potassium 5.3 H 4.3 D Chloride 115 H 114 H Carbon Dioxide 30 H 34 H BUN 94 H 89 H Creatinine 1.08 1.12 H Glucose 186 H 158 H Calcium 7.9 L 8.0 L Liver Function 05/02/16 Range/Units 03:33 Total Bilirubin 0.4 (0.2-1.2) mg/dL AST 53 H (5-34) Units/L ALT 172 H (0-55) Units/L Alkaline Phosphatase 77 (38-126) Units/L Albumin 1.7 L (3.5-5.0) g/dL Urine 05/01/16 Range/Units 17:20 Urine Color Yellow (Yellow) Urine Clarity Cloudy A (Clear) Urine pH 6.0 (5.0-8.0) pH Units Ur Specific [employer] 1.023 (1.010-1.025) Urine Protein 30 H (Neg-Trace) mg/dL Urine Glucose (UA) Normal (Normal) mg/dL - ABG Interpretation ABG results: ABG ABG pH 7.37 pH Units (7.32-7.45) 04/20/16 01:45 ABG pCO2 60 mmHg (35-45) H 04/20/16 01:45 ABG pO2 72 mmHg (85-104) L 04/20/16 01:45 ABG O2 Saturation 94 % (95-98) L 04/20/16 01:45 PT/INR, D-dimer PT 11.3 Seconds (9.4-12.1) 04/19/16 13:38 - Impressions Impressions Chest X-Ray 05/01/16 14:49 IMPRESSION: Airspace disease in the central lung zones likely represents pneumonia while airspace disease at the lung bases could represent atelectasis or pneumonia. D/ / Dashawn Douglas MD / Dashawn Douglas MD Interpreting Provider: Dashawn Douglas MD - VTE Documentation of Mechanical Device: Intermittent pneumatic compression device Consult Discharge Plan - Plan Instructions: Atrial Fibrillation (DC), Failure to Thrive (DC), Failure to Thrive (GEN), Acute Kidney Injury (DC), Acute Kidney Injury (GEN), Syncope (DC) , Chronic Obstructive Pulmonary Disease (DC), Chronic Hypertension (DC), Pneumonia (DC) Referrals: Herbert Oswald MD [Primary Care Provider] -
[2016-05-02 12:50] LABS: Calcium 7.9 mg/dL (8.6-10.8); Potassium 4.7 mEq/L (3.5-4.5)
--- NOTE | 2016-05-02 15:06 | Palliative Progress Note ---
Date of Encounter: 05/02/16 Time of Encounter: 15:00 - Assessment and plan (1) Thrush, oral Current Visit: Yes Status: Acute Assessment and plan: Improved. continues on Nystatin suspension (2) Dyspnea Current Visit: Yes Status: Acute Qualifiers: Dyspnea type: unspecified Qualified Code(s): R06.00 - Dyspnea, unspecified (3) Counseling regarding advanced care planning and goals of care Current Visit: Yes Status: Acute Assessment and plan: Discussed clinical situation with daughter, son-n-law, primary nurse Kallie also attended. Updated on clinical status. They expressed concern that she was "comatose". Explained that she was awake earlier in the day. They asked "is it possible she won't wake up"? Explained that she is very weak and organs not functioning well. They stated she had a very good day yesterday which encouraged them. Explained that patients status can wax and wane, and sometimes "rally" prior to further deterioration. Explained that hoping for the best, but being prepared she may not recover would be a good mindset at this point in time. They verbalized understanding and stated they want to ensure she is comfortable. However, at this point, they still want to continue with present level of care, including IV antibiotics, diuretics if needed and oxygen support. Will follow up on Thursday. (4) Acute and chronic respiratory failure Current Visit: Yes Status: Acute Qualifiers: Respiratory failure complication: hypoxia and hypercapnia Qualified Code(s) : J96.21 - Acute and chronic respiratory failure with hypoxia; J96.22 - Acute and chronic respiratory failure with hypercapnia (5) HCAP (healthcare-associated pneumonia) Current Visit: Yes Status: Acute - Time Spent With Patient Total time spent is greater than 50% in coordination of care (as documented) at patient's floor/unit and/or counseling patient: 25 - 35 minutes - Subjective Interval history: Patient has been sleeping most of day, will arouse, but drifts back to sleep. Daughter other family members at bedside. - Constitutional Vitals: Abnormal lab results WBC 19.5 K/mcL (4.3-11.1) H 05/02/16 03:33 RBC 3.39 M/mcL (3.82-4.97) L 05/02/16 03:33 Hgb 8.8 g/dL (11.5-15.4) L 05/02/16 03:33 Hct 29.4 % (35.3-44.9) L 05/02/16 03:33 MCH 26.0 pg (28.0-33.3) L 05/02/16 03:33 MCHC 29.9 g/dL (31.6-35.5) L 05/02/16 03:33 RDW 16.5 % (11.5-14.5) H 05/02/16 03:33 Plt Count 92 K/mcL (140-400) L 05/02/16 03:33 MPV 13.1 fL (9.4-12.4) H 05/02/16 03:33 Band Neutrophils % 8.0 % (0-4) H 04/28/16 04:09 Neutrophils # 18.1 K/mcL (1.6-8.9) H 05/02/16 03:33 Lymphocytes # 0.3 K/mcL (0.6-4.6) L 05/02/16 03:33 Hypersegmented Neuts Present (Not Present) A 04/28/16 04:09 Clumped Platelets Few (Not Present) A 04/24/16 04:32 Immature Plt Fraction 10.4 % (1.1-6.1) H 05/02/16 03:33 Hypochromasia Present (Not Present) A 04/26/16 04:57 Poikilocytosis 1+ (Not Present) A 04/28/16 04:09 Basophilic Stippling 1+ (Not Present) A 04/23/16 08:35 Anisocytosis 1+ (Not Present) A 04/26/16 04:57 Target Cells 1+ (Not Present) A 04/28/16 04:09 Stomatocytes 1+ (Not Present) A 04/28/16 04:09 ABG pCO2 60 mmHg (35-45) H 04/20/16 01:45 ABG pO2 72 mmHg (85-104) L 04/20/16 01:45 ABG HCO3 34.7 mEQ/L (21-27) H 04/20/16 01:45 ABG Total CO2 36.5 mEq/L (20-26) H 04/20/16 01:45 ABG O2 Saturation 94 % (95-98) L 04/20/16 01:45 ABG Base Excess 8.2 mEq/L (-2.0 to 3.0) H 04/20/16 01:45 VBG pCO2 58 mmHg (41-51) H 04/25/16 01:31 VBG pO2 150 mmHg (25-40) H 04/25/16 01:31 VBG HCO3 36.8 mEq/L (21-27) H 04/25/16 01:31 Sodium 154 mEq/L (136-145) H 05/02/16 12:28 Potassium 4.7 mEq/L (3.5-4.5) H 05/02/16 12:28 Chloride 111 mEq/L (98-109) H 05/02/16 12:28 Carbon Dioxide 33 mEq/L (19-29) H 05/02/16 12:28 BUN 82 mg/dL (7-20) H 05/02/16 12:28 Creatinine 1.15 mg/dL (0.57-1.11) H 05/02/16 12:28 Est GFR ( Amer) 54 (> 60) L 05/02/16 12:28 Est GFR (Non-Af Amer) 45 (> 60) L 05/02/16 12:28 BUN/Creatinine Ratio 71 (6-26) H 05/02/16 12:28 Glucose 198 mg/dL (70-99) H 05/02/16 12:28 Calculated Osmolality 348 (280-300) H 05/02/16 12:28 Uric Acid 8.7 mg/dL (2.6-6.0) H 05/01/16 15:12 Calcium 7.9 mg/dL (8.6-10.8) L 05/02/16 12:28 AST 53 Units/L (5-34) H 05/02/16 03:33 ALT 172 Units/L (0-55) H 05/02/16 03:33 Serum Total Protein 4.0 g/dL (6.0-8.3) L 05/02/16 03:33 Albumin 1.7 g/dL (3.5-5.0) L 05/02/16 03:33 Globulin 2.3 g/dL (2.4-3.5) L 05/02/16 03:33 Albumin/Globulin Ratio 0.7 (1.1-2.2) L 05/02/16 03:33 Urine Clarity Cloudy (Clear) A 05/01/16 17:20 Urine Protein 30 mg/dL (Neg-Trace) H 05/01/16 17:20 Urine Microscopic RBC 5-15 per hpf (0-3) H 05/01/16 17:20 Ur Squamous Epith Cells Many per lpf (None-Few) H 05/01/16 17:20 General appearance: Present: no acute distress - Respiratory Additional comments: Crackles throughout all lung morales. - Cardiovascular Cardiovascular exam: Present: irregular rhythm - GI/Abdominal GI/Abdominal exam: Present: normal bowel sounds, soft - Extremities Exam Additional comments: generalized edema to all extremities - Neurological Exam Neurological exam: Present: altered Additional comments: Lethargic and difficult to arouse today. - Skin Skin exam: Present: dry, pallor, warm Palliative Quality Palliative Quality: Screen for Code Status: Yes, Screen for Goals of Care: Yes, Screen for Pain: Yes, If Pain Regimen Started, Initiate Bowel Regimen: NA, Screen for Nausea/Vomitting: Yes Code Status: 04/20/16 12:28 CODE [Resuscitation Status: Active] [RES] Routine Comment: Resuscitation Status: [id number] 04/20/16 12:39 CODE [Resuscitation Status: Active] [RES] Routine Comment: Do not intubate. Resuscitation Status: Full Code 04/21/16 14:58 DNR [Resuscitation Status: Active] [RES] Routine Comment: Resuscitation Status: Full Code 04/24/16 15:46 DNR [Resuscitation Status: Active] [RES] Routine Comment: Resuscitation Status: [id number] - Labs CBC & Chem 7: 05/02/16 03:33 05/02/16 12:28 Labs: Laboratory Results - last 24 hr 05/01/16 05/01/16 05/01/16 15:12 17:20 18:20 WBC RBC Hgb Hct MCV MCH MCHC RDW Plt Count MPV Immature Gran % Seg Neutrophils % Lymphocytes % Monocytes % Eosinophils % Basophils % Neutrophils # Lymphocytes # Monocytes # Eosinophils # Basophils # Immature Plt Fraction Sodium 152 H Potassium 5.3 H Chloride 115 H Carbon Dioxide 30 H BUN 94 H Creatinine 1.08 Est GFR ( Amer) 58 L Est GFR (Non-Af Amer) 48 L BUN/Creatinine Ratio 87 H Glucose 186 H Calculated Osmolality 348 H Uric Acid 8.7 H Calcium 7.9 L Phosphorus Magnesium Total Bilirubin AST ALT Alkaline Phosphatase Creatine Kinase 46 Serum Total Protein Albumin Globulin Albumin/Globulin Ratio Urine Color Yellow Urine Clarity Cloudy A Urine pH 6.0 Ur Specific [place] 1.023 Urine Protein 30 H Urine Glucose (UA) Normal Urine Ketones Negative Urine Blood Negative Urine Nitrite Negative Urine Bilirubin Negative Urine Urobilinogen Normal Ur Leukocyte Esterase Negative Urine Microscopic RBC 5-15 H Urine Microscopic WBC 0-3 Ur Squamous Epith Cells Many H Urine Bacteria None Seen Hyaline Casts None Seen Ur Culture Indicated? NO Urine Creatinine 62 Urine Sodium < 20.0 Ur Uric Acid 44 Urine Urea Nitrogen 1279 C. difficile Tox (PCR) 05/02/16 05/02/16 05/02/16 01:08 03:33 03:33 WBC 19.5 H RBC 3.39 L Hgb 8.8 L Hct 29.4 L MCV 86.7 MCH 26.0 L MCHC 29.9 L RDW 16.5 H Plt Count 92 L MPV 13.1 H Immature Gran % 1.2 Seg Neutrophils % 93.0 Lymphocytes % 1.3 Monocytes % 4.4 Eosinophils % 0.0 Basophils % 0.1 Neutrophils # 18.1 H Lymphocytes # 0.3 L Monocytes # 0.9 Eosinophils # 0.0 Basophils # 0.0 Immature Plt Fraction 10.4 H Sodium 156 H Potassium 4.3 D Chloride 114 H Carbon Dioxide 34 H BUN 89 H Creatinine 1.12 H Est GFR ( Amer) 56 L Est GFR (Non-Af Amer) 46 L BUN/Creatinine Ratio 79 H Glucose 158 H Calculated Osmolality 353 H Uric Acid Calcium 8.0 L Phosphorus 3.6 Magnesium 2.6 Total Bilirubin 0.4 AST 53 H ALT 172 H Alkaline Phosphatase 77 Creatine Kinase Serum Total Protein 4.0 L Albumin 1.7 L Globulin 2.3 L Albumin/Globulin Ratio 0.7 L Urine Color Urine Clarity Urine pH Ur Specific [place] Urine Protein Urine Glucose (UA) Urine Ketones Urine Blood Urine Nitrite Urine Bilirubin Urine Urobilinogen Ur Leukocyte Esterase Urine Microscopic RBC Urine Microscopic WBC Ur Squamous Epith Cells Urine Bacteria Hyaline Casts Ur Culture Indicated? Urine Creatinine Urine Sodium Ur Uric Acid Urine Urea Nitrogen C. difficile Tox (PCR) Negative 05/02/16 12:28 WBC RBC Hgb Hct MCV MCH MCHC RDW Plt Count MPV Immature Gran % Seg Neutrophils % Lymphocytes % Monocytes % Eosinophils % Basophils % Neutrophils # Lymphocytes # Monocytes # Eosinophils # Basophils # Immature Plt Fraction Sodium 154 H Potassium 4.7 H Chloride 111 H Carbon Dioxide 33 H BUN 82 H Creatinine 1.15 H Est GFR ( Amer) 54 L Est GFR (Non-Af Amer) 45 L BUN/Creatinine Ratio 71 H Glucose 198 H Calculated Osmolality 348 H Uric Acid Calcium 7.9 L Phosphorus Magnesium Total Bilirubin AST ALT Alkaline Phosphatase Creatine Kinase Serum Total Protein Albumin Globulin Albumin/Globulin Ratio Urine Color Urine Clarity Urine pH Ur Specific [place] Urine Protein Urine Glucose (UA) Urine Ketones Urine Blood Urine Nitrite Urine Bilirubin Urine Urobilinogen Ur Leukocyte Esterase Urine Microscopic RBC Urine Microscopic WBC Ur Squamous Epith Cells Urine Bacteria Hyaline Casts Ur Culture Indicated? Urine Creatinine Urine Sodium Ur Uric Acid Urine Urea Nitrogen C. difficile Tox (PCR) - Impressions Impressions Chest X-Ray 05/01/16 14:49 IMPRESSION: Airspace disease in the central lung zones likely represents pneumonia while airspace disease at the lung bases could represent atelectasis or pneumonia. D/ / Dashawn Douglas MD / Dashawn Douglas MD Interpreting Provider: Dashawn Douglas MD - ABG Interpretation ABG results: ABG ABG pH 7.37 pH Units (7.32-7.45) 04/20/16 01:45 ABG pCO2 60 mmHg (35-45) H 04/20/16 01:45 ABG pO2 72 mmHg (85-104) L 04/20/16 01:45 ABG O2 Saturation 94 % (95-98) L 04/20/16 01:45 PT/INR, D-dimer PT 11.3 Seconds (9.4-12.1) 04/19/16 13:38 Consult Discharge Plan - Plan Instructions: Atrial Fibrillation (DC), Failure to Thrive (DC), Failure to Thrive (GEN), Acute Kidney Injury (DC), Acute Kidney Injury (GEN), Syncope (DC) , Chronic Obstructive Pulmonary Disease (DC), Chronic Hypertension (DC), Pneumonia (DC) Referrals: Herbert Oswald MD [Primary Care Provider] -
--- NOTE | 2016-05-02 16:22 | Electrocardiograph Report ---
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
[2016-05-02] MEDS: clonazePAM 0.5 MG TABLET PO SCH (22:37)
[2016-05-03] MEDS: Piperacillin/Tazobactam 3.375 GM in D5% in Water (Mini-Bag+) 100 ML IVPB SCH ×4 (00:30→23:49)
[2016-05-03] MEDS: Ipratropium 1 PUFF INHALER IH SCH ×6 (04:43→23:50)
[2016-05-03] MEDS: Levalbuterol Neb 0.63 MG/3 ML IH SCH ×6 (04:43→23:50)
[2016-05-03] MEDS: *HR* Heparin 5,000 UNIT/ML VIAL SQ SCH ×2 (05:41→17:30)
[2016-05-03 06:13] LABS: Basophils % 0.1 %; Eosinophils % 0.1 %; Immature Granulocytes % 1.2 % (0-4); Mean Corpuscular Hemoglobin 26.5 pg (28.0-33.3)
[2016-05-03 06:15] LABS: Hematocrit 26.7 % (35.3-44.9); Hemoglobin 8.1 g/dL (11.5-15.4); Immature Platelets 14.3 % (1.1-6.1); Lymphocytes # 0.3 K/mcL (0.6-4.6); Lymphocytes % 2.3 %; Mean Corpuscular HGB Conc 30.3 g/dL (31.6-35.5); Mean Corpuscular Volume 87.3 fL (83.0-100.0); Mean Platelet Volume 13.4 fL (9.4-12.4); Monocytes # 0.6 K/mcL (0.0-1.3); Monocytes % 4.1 %; Neutrophils # 13.2 K/mcL (1.6-8.9); Red Blood Count 3.06 M/mcL (3.82-4.97); Red Cell Distribution Width 16.4 % (11.5-14.5); Segmented Neutrophils % 92.2 %
[2016-05-03 06:17] LABS: Alanine Aminotransferase 156 Units/L (0-55); Albumin/Globulin Ratio 1.2 (1.1-2.2); Alkaline Phosphatase 65 Units/L (38-126); Aspartate Amino Transferase 54 Units/L (5-34); BUN/Creatinine Ratio 72 (6-26); Blood Urea Nitrogen 73 mg/dL (7-20); Calcium 7.3 mg/dL (8.6-10.8); Carbon Dioxide 37 mEq/L (19-29); Chloride 109 mEq/L (98-109); Glucose 129 mg/dL (70-99); Osmolality,Calculated 343 (280-300); Sodium 155 mEq/L (136-145); Total Protein 4.3 g/dL (6.0-8.3); eGFR For African Americans > 60 (> 60); eGFR For Non-African Americans 51 (> 60)
[2016-05-03 06:18] LABS: Platelet Count 73 K/mcL (140-400)
[2016-05-03 06:20] LABS: Albumin 2.3 g/dL (3.5-5.0); Bilirubin,Total 0.7 mg/dL (0.2-1.2)
[2016-05-03] MEDS: Acetylcysteine 10% 2 ML INHSOL IH SCH ×3 (07:32→23:50)
[2016-05-03] MEDS: *HR* Amiodarone 200 MG TABLET PO SCH (09:39)
[2016-05-03] MEDS: Aspirin Enteric Coated 81 MG Tablet PO SCH (09:39)
[2016-05-03] MEDS: Nystatin POWDER 30 GM BOTTLE TP SCH ×2 (09:40→20:53)
[2016-05-03] MEDS: predniSONE 20 MG TABLET PO SCH (09:40)
[2016-05-03] MEDS: Famotidine 20 MG TABLET PO SCH (09:40)
[2016-05-03] MEDS: Nystatin SUSP 5 ML UD.LIQ PO SCH ×4 (09:40→20:52)
--- NOTE | 2016-05-03 09:53 | Internal Med Progress Note ---
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 On 04/19, patient was admitted with acute respiratory failure secondary to recurrent aspiration PNA, infected bronchiectasis and COPD exacerbation. She required up to 9L Nc and BIPAP at bedtime. 05/01: WBC is trending up after stopping Meropenem (course 04/23-04/30). Also, she has developed acute diastolic heart failure likely from fluid resuscitation and moderate aortic regurgitation and pulmonary hypertension. 05/02: CXR showed new focal opacities in the right mid lung. clinically with diffuse edema and WBC slightly trending down to 19. Unable to reach family members. received lasix drip and albumin till evening. 05/03: good diuresis after albumin and lasix drip; however, her overall condition has not changed. continue empiric Zosyn, metoprolol, mucinex, nebs. Patient is tolerating well 3L NC. continue to wean down to keep SaO2 >92%. Close monitor of I/O. fluid restriction 1.5 L/day. continue pureed diet and honey thickened liquids. repeat BMP in the afternoon. I will attempt to update family about patient's condition, and very poor prognosis. studies 04/27: CXR showed mild pulmonary vascular congestion. 04/24: CT chest showed bilateral pulmonary infiltrates with possible underlying nodular densities. right hilar mass or infiltrate. small pericardial and left pleural effusions. 04/28: Videofluoroscopic swallow shows no aspiration. 03/31/16: echocardiogram showed LVEF 65%, mild LV diastolic dysfunction, moderate aortic regurgitation, moderate pulmonary hypertension. 12/11/15: negative stress test. Qualifiers: Respiratory failure complication: hypoxia and hypercapnia Qualified Code(s) : J96.21 - Acute and chronic respiratory failure with hypoxia; J96.22 - Acute and chronic respiratory failure with hypercapnia (2) Acute worsening of stage 3 chronic kidney disease Current Visit: Yes Status: Acute Assessment and plan: 05/01-05/02: received lasix drip at a low rate. good urine output. BUN trending down to 72. GFR at 51. close monitoring of kidney function. repeat bmp at noon. avoid nephrotoxins as possible. (3) Acute hypernatremia Current Visit: Yes Status: Acute Assessment and plan: Na stable at 155. close monitoring. (4) Acute metabolic encephalopathy Current Visit: Yes Status: Acute Assessment and plan: multifactorial from PNA, COPD, hospitalization, old age, uremia. treat underlying etiology. (5) HCAP (healthcare-associated pneumonia) Current Visit: Yes Status: Acute Assessment and plan: plan as above. (6) Diastolic heart failure Current Visit: Yes Status: Acute Assessment and plan: plan as above. Qualifiers: Heart failure chronicity: acute Qualified Code(s): I50.31 - Acute diastolic (congestive) heart failure (7) Pulmonary hypertension Current Visit: Yes Status: Acute Assessment and plan: plan as above. (8) Moderate aortic regurgitation Current Visit: Yes Status: Acute Assessment and plan: plan as above, (9) COPD (chronic obstructive pulmonary disease) Current Visit: Yes Status: Acute Assessment and plan: plan as above. Qualifiers: COPD type: unspecified COPD Qualified Code(s): J44.9 - Chronic obstructive pulmonary disease, unspecified (10) Atrial fibrillation Current Visit: No Status: Chronic Assessment and plan: HR fluctuates in the 100-115 range. Not a candidate for anticoagulation. continue metoprolol, amiodarone and aspirin. Qualifiers: Atrial fibrillation type: paroxysmal Qualified Code(s): I48.0 - Paroxysmal atrial fibrillation (11) Hypertension Current Visit: No Status: Chronic Assessment and plan: controlled. holding home dose of losartan, and amlodipine. Qualifiers: Hypertension type: essential hypertension Qualified Code(s): I10 - Essential (primary) hypertension (12) Anemia, chronic disease Current Visit: No Status: Chronic Assessment and plan: Hgb at 8.1. no signs of bleeding. continue to monitor. (13) Failure to thrive in adult Current Visit: Yes Status: Acute Assessment and plan: PT/OT. plan to dc to [facility]. (14) Diarrhea Current Visit: Yes Status: Acute Assessment and plan: negative c diff. could be from antibiotic use Qualifiers: Diarrhea type: unspecified type Qualified Code(s): R19.7 - Diarrhea, unspecified - Subjective Interval history: Patient is confused. She keeps saying that she is tired and she is ready to go. no other complaints. - Constitutional Vitals: Temp Pulse Resp BP Pulse Ox 97.6 F 105 18 132/63 96 05/03/16 07:00 05/03/16 07:00 05/03/16 07:34 05/03/16 07:00 05/03/16 07:34 General appearance: Present: A&O X 2, pleasant, no acute distress - Eye Eye exam: Present: sclera anicteric - Neck Neck exam general surgery: Present: supple, trachea midline. Absent: lymphadenopathy - Respiratory Respiratory exam: Present: rhonchi (at bases) - Cardiovascular Cardiovascular exam: Present: tachycardia - GI/Abdominal GI/Abdominal exam: Present: soft. Absent: distended, tenderness - Extremities Exam Extremities exam: Present: radial pulses palpable and symetrical Additional comments: LE edema in extremities. - Back Exam Back exam: Absent: CVA tenderness (L), CVA tenderness (R) - Neurological Exam Neurological exam: Present: alert, oriented X3. Absent: facial droop, speech deficit Internal Medicine: Result - Labs CBC & Chem 7: 05/03/16 05:45 05/03/16 05:45 Labs: Short CBC 05/03/16 Range/Units 05:45 WBC 14.3 H (4.3-11.1) K/mcL Hgb 8.1 L (11.5-15.4) g/dL Hct 26.7 L (35.3-44.9) % Plt Count 73 L (140-400) K/mcL Neutrophils # 13.2 H (1.6-8.9) K/mcL BMP 05/02/16 05/03/16 12:28 05:45 Sodium 154 H 155 H Potassium 4.7 H 4.0 Chloride 111 H 109 Carbon Dioxide 33 H 37 H BUN 82 H 73 H Creatinine 1.15 H 1.02 Glucose 198 H 129 H Calcium 7.9 L 7.3 L Liver Function 05/03/16 Range/Units 05:45 Total Bilirubin 0.7 (0.2-1.2) mg/dL AST 54 H (5-34) Units/L ALT 156 H (0-55) Units/L Alkaline Phosphatase 65 (38-126) Units/L Albumin 2.3 L D (3.5-5.0) g/dL - ABG Interpretation ABG results: ABG ABG pH 7.37 pH Units (7.32-7.45) 04/20/16 01:45 ABG pCO2 60 mmHg (35-45) H 04/20/16 01:45 ABG pO2 72 mmHg (85-104) L 04/20/16 01:45 ABG O2 Saturation 94 % (95-98) L 04/20/16 01:45 PT/INR, D-dimer PT 11.3 Seconds (9.4-12.1) 04/19/16 13:38 - VTE Documentation of Mechanical Device: Intermittent pneumatic compression device Consult Discharge Plan - Plan Instructions: Atrial Fibrillation (DC), Failure to Thrive (DC), Failure to Thrive (GEN), Acute Kidney Injury (DC), Acute Kidney Injury (GEN), Syncope (DC) , Chronic Obstructive Pulmonary Disease (DC), Chronic Hypertension (DC), Pneumonia (DC) Referrals: Herbert Oswald MD [Primary Care Provider] -
[2016-05-03 12:23] LABS: BUN/Creatinine Ratio 66 (6-26); Blood Urea Nitrogen 66 mg/dL (7-20); Calcium 8.1 mg/dL (8.6-10.8); Carbon Dioxide 32 mEq/L (19-29); Chloride 107 mEq/L (98-109); Glucose 186 mg/dL (70-99); Osmolality,Calculated 332 (280-300); Potassium 3.8 mEq/L (3.5-4.5); Sodium 149 mEq/L (136-145); eGFR For African Americans > 60 (> 60); eGFR For Non-African Americans 52 (> 60)
[2016-05-03] MEDS ORDERED: Lidocaine Viscous Oral Soln 15 ML SOLUTION MM PRN (15:17)
[2016-05-03] MEDS ORDERED: Albumin 25% 25gram/100mL 25 GM/100 ML IV.SOLN IVPB ONE (17:01)
[2016-05-03] MEDS ORDERED: 0.9 % Sodium Chloride 500 ML ONE (19:41)
[2016-05-03] MEDS: Furosemide 240 MG in D5% in Water 96 ML IVC SCH (19:55)
[2016-05-03] MEDS: clonazePAM 0.5 MG TABLET PO SCH (20:48)
[2016-05-04] MEDS: Ipratropium 1 PUFF INHALER IH SCH ×5 (04:22→20:48)
[2016-05-04] MEDS: Levalbuterol Neb 0.63 MG/3 ML IH SCH ×5 (04:22→20:47)
[2016-05-04 04:37] LABS: Basophils % 0.1 %; Immature Granulocytes % 0.9 % (0-4)
[2016-05-04 04:38] LABS: Alanine Aminotransferase 132 Units/L (0-55); Albumin 2.6 g/dL (3.5-5.0); Albumin/Globulin Ratio 1.3 (1.1-2.2); Alkaline Phosphatase 65 Units/L (38-126); Aspartate Amino Transferase 44 Units/L (5-34); BUN/Creatinine Ratio 62 (6-26); Bilirubin,Total 0.8 mg/dL (0.2-1.2); Blood Urea Nitrogen 63 mg/dL (7-20); Calcium 8.1 mg/dL (8.6-10.8); Carbon Dioxide 37 mEq/L (19-29); Chloride 110 mEq/L (98-109); Glucose 138 mg/dL (70-99); Magnesium 2.1 mg/dL (1.6-2.6); Osmolality,Calculated 344 (280-300); Potassium 3.4 mEq/L (3.5-4.5); Total Protein 4.6 g/dL (6.0-8.3); eGFR For African Americans > 60 (> 60); eGFR For Non-African Americans 52 (> 60)
[2016-05-04 04:39] LABS: Hematocrit 24.8 % (35.3-44.9); Hemoglobin 7.6 g/dL (11.5-15.4); Immature Platelets 15.1 % (1.1-6.1); Lymphocytes # 0.3 K/mcL (0.6-4.6); Lymphocytes % 2.2 %; Mean Corpuscular HGB Conc 30.6 g/dL (31.6-35.5); Mean Corpuscular Hemoglobin 26.3 pg (28.0-33.3); Mean Corpuscular Volume 85.8 fL (83.0-100.0); Mean Platelet Volume 13.6 fL (9.4-12.4); Monocytes # 0.7 K/mcL (0.0-1.3); Neutrophils # 13.6 K/mcL (1.6-8.9); Red Blood Count 2.89 M/mcL (3.82-4.97); Red Cell Distribution Width 16.3 % (11.5-14.5); Segmented Neutrophils % 91.8 %
[2016-05-04 04:48] LABS: Sodium 157 mEq/L (136-145)
[2016-05-04 05:05] LABS: Platelet Count 63 K/mcL (140-400)
[2016-05-04] MEDS: *HR* Heparin 5,000 UNIT/ML VIAL SQ SCH ×2 (05:07→17:14)
[2016-05-04] MEDS: Acetylcysteine 10% 2 ML INHSOL IH SCH ×2 (07:59→16:26)
--- NOTE | 2016-05-04 09:13 | Internal Med Progress Note ---
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 On 04/19, patient was admitted with acute respiratory failure secondary to recurrent aspiration PNA, infected bronchiectasis and COPD exacerbation. She required up to 9L Nc and BIPAP at bedtime. 05/01: WBC is trending up after stopping Meropenem (course 04/23-04/30). Also, she has developed acute diastolic heart failure likely from fluid resuscitation and moderate aortic regurgitation and pulmonary hypertension. 05/02: CXR showed new focal opacities in the right mid lung. clinically with diffuse edema and WBC slightly trending down to 19. Unable to reach family members. received lasix drip and albumin till evening. 05/03: good diuresis after albumin and lasix drip; however, her overall condition has not changed. Patient is tolerating well 3L NC. received albumin IV and re-started on lasix drip in the afternoon. 05/04: unchanged clinical condition, patient's prognosis is very poor. resume lasix dip. continue empiric Zosyn, metoprolol, mucinex, nebs. fluid restriction 1.5 L/day. continue pureed diet and honey thickened liquids. studies 04/27: CXR showed mild pulmonary vascular congestion. 04/24: CT chest showed bilateral pulmonary infiltrates with possible underlying nodular densities. right hilar mass or infiltrate. small pericardial and left pleural effusions. 04/28: Videofluoroscopic swallow shows no aspiration. 03/31/16: echocardiogram showed LVEF 65%, mild LV diastolic dysfunction, moderate aortic regurgitation, moderate pulmonary hypertension. 12/11/15: negative stress test. Qualifiers: Respiratory failure complication: hypoxia and hypercapnia Qualified Code(s) : J96.21 - Acute and chronic respiratory failure with hypoxia; J96.22 - Acute and chronic respiratory failure with hypercapnia (2) Acute worsening of stage 3 chronic kidney disease Current Visit: Yes Status: Acute Assessment and plan: 05/01-05/02: received lasix drip at a low rate. good urine output. BUN trending down to 72. GFR at 51. close monitoring of kidney function. repeat bmp at noon. avoid nephrotoxins as possible. (3) Acute hypernatremia Current Visit: Yes Status: Acute Assessment and plan: Na at 157. close monitoring. (4) Acute metabolic encephalopathy Current Visit: Yes Status: Acute Assessment and plan: multifactorial from PNA, COPD, hospitalization, old age, uremia. treat underlying etiology. (5) HCAP (healthcare-associated pneumonia) Current Visit: Yes Status: Acute Assessment and plan: plan as above. (6) Diastolic heart failure Current Visit: Yes Status: Acute Assessment and plan: plan as above. Qualifiers: Heart failure chronicity: acute Qualified Code(s): I50.31 - Acute diastolic (congestive) heart failure (7) Pulmonary hypertension Current Visit: Yes Status: Acute Assessment and plan: plan as above. (8) Moderate aortic regurgitation Current Visit: Yes Status: Acute Assessment and plan: plan as above, (9) COPD (chronic obstructive pulmonary disease) Current Visit: Yes Status: Acute Assessment and plan: plan as above. Qualifiers: COPD type: unspecified COPD Qualified Code(s): J44.9 - Chronic obstructive pulmonary disease, unspecified (10) Atrial fibrillation Current Visit: No Status: Chronic Assessment and plan: HR fluctuates in the 100-115 range. Not a candidate for anticoagulation. continue metoprolol, amiodarone and aspirin. Qualifiers: Atrial fibrillation type: paroxysmal Qualified Code(s): I48.0 - Paroxysmal atrial fibrillation (11) Hypertension Current Visit: No Status: Chronic Assessment and plan: controlled. holding home dose of losartan, and amlodipine. Qualifiers: Hypertension type: essential hypertension Qualified Code(s): I10 - Essential (primary) hypertension (12) Anemia, chronic disease Current Visit: No Status: Chronic Assessment and plan: Hgb at 7.6. no signs of bleeding. continue to monitor. (13) Failure to thrive in adult Current Visit: Yes Status: Acute Assessment and plan: PT/OT. plan to dc to [facility]. (14) Diarrhea Current Visit: Yes Status: Acute Assessment and plan: negative c diff. could be from antibiotic use Qualifiers: Diarrhea type: unspecified type Qualified Code(s): R19.7 - Diarrhea, unspecified - Subjective Interval history: Patient is awake but very confused. she ate only 5% of her diet. - Constitutional Vitals: Temp Pulse Resp BP Pulse Ox 98.1 F 107 16 146/46 88 L 05/04/16 07:00 05/04/16 07:00 05/04/16 08:00 05/04/16 07:00 05/04/16 08:00 General appearance: Present: A&O X 1, A&O X 2, pleasant, no acute distress - Eye Eye exam: Present: PERRL, sclera anicteric - Neck Neck exam general surgery: Present: supple, trachea midline. Absent: lymphadenopathy - Respiratory Respiratory exam: Present: rhonchi - Cardiovascular Cardiovascular exam: Present: tachycardia - GI/Abdominal GI/Abdominal exam: Present: normal bowel sounds, soft. Absent: distended, tenderness - Extremities Exam Additional comments: LE edema bilaterally 2+ - Neurological Exam Neurological exam: Present: alert. Absent: pronater drift, speech deficit Internal Medicine: Result - Labs CBC & Chem 7: 05/04/16 04:00 05/04/16 04:00 Labs: Short CBC 05/04/16 Range/Units 04:00 WBC 14.8 H (4.3-11.1) K/mcL Hgb 7.6 L (11.5-15.4) g/dL Hct 24.8 L (35.3-44.9) % Plt Count 63 L (140-400) K/mcL Neutrophils # 13.6 H (1.6-8.9) K/mcL BMP 05/03/16 05/04/16 12:05 04:00 Sodium 149 H 157 H D Potassium 3.8 3.4 L Chloride 107 110 H Carbon Dioxide 32 H 37 H BUN 66 H 63 H Creatinine 1.00 1.01 Glucose 186 H 138 H Calcium 8.1 L 8.1 L Liver Function 05/04/16 Range/Units 04:00 Total Bilirubin 0.8 (0.2-1.2) mg/dL AST 44 H (5-34) Units/L ALT 132 H (0-55) Units/L Alkaline Phosphatase 65 (38-126) Units/L Albumin 2.6 L (3.5-5.0) g/dL - ABG Interpretation ABG results: ABG ABG pH 7.37 pH Units (7.32-7.45) 04/20/16 01:45 ABG pCO2 60 mmHg (35-45) H 04/20/16 01:45 ABG pO2 72 mmHg (85-104) L 04/20/16 01:45 ABG O2 Saturation 94 % (95-98) L 04/20/16 01:45 PT/INR, D-dimer PT 11.3 Seconds (9.4-12.1) 04/19/16 13:38 - VTE Documentation of Mechanical Device: Intermittent pneumatic compression device Consult Discharge Plan - Plan Instructions: Atrial Fibrillation (DC), Failure to Thrive (DC), Failure to Thrive (GEN), Acute Kidney Injury (DC), Acute Kidney Injury (GEN), Syncope (DC) , Chronic Obstructive Pulmonary Disease (DC), Chronic Hypertension (DC), Pneumonia (DC) Referrals: Herbert Oswald MD [Primary Care Provider] -
[2016-05-04] MEDS ORDERED: WATER IVPB ONE (09:16)
[2016-05-04] MEDS ORDERED: POTASSIUM CHLORIDE IVPB ONE (09:16)
[2016-05-04] MEDS ORDERED: LIDOCAINE 1% IVPB ONE (09:16)
[2016-05-04] MEDS ORDERED: D5 IVPB ONE (09:16)
[2016-05-04] MEDS: Piperacillin/Tazobactam 3.375 GM in D5% in Water (Mini-Bag+) 100 ML IVPB SCH ×3 (09:51→23:35)
[2016-05-04] MEDS: *HR* Amiodarone 200 MG TABLET PO SCH (09:52)
[2016-05-04] MEDS: Aspirin Enteric Coated 81 MG Tablet PO SCH (09:52)
[2016-05-04] MEDS: predniSONE 20 MG TABLET PO SCH (09:53)
[2016-05-04] MEDS: Nystatin SUSP 5 ML UD.LIQ PO SCH ×4 (09:53→20:27)
[2016-05-04] MEDS: Famotidine 20 MG TABLET PO SCH (09:53)
[2016-05-04] MEDS: Nystatin POWDER 30 GM BOTTLE TP SCH ×2 (09:53→20:27)
[2016-05-04 15:15] LABS: Calcium 8.1 mg/dL (8.6-10.8)
[2016-05-04 15:20] LABS: Potassium 3.9 mEq/L (3.5-4.5)
[2016-05-04] MEDS: Furosemide 240 MG in D5% in Water 96 ML IVC SCH (17:14)
[2016-05-04] MEDS ORDERED: GuaiFENesin Liq 200 MG/10 ML UDC PO ONE (20:16)
[2016-05-04] MEDS: clonazePAM 0.5 MG TABLET PO SCH (20:27)
[2016-05-04 20:29] VITALS: BP 114/65
[2016-05-05] MEDS: Ipratropium 1 PUFF INHALER IH SCH ×2 (00:59→05:22)
[2016-05-05] MEDS: Acetylcysteine 10% 2 ML INHSOL IH SCH (00:59)
[2016-05-05] MEDS: Levalbuterol Neb 0.63 MG/3 ML IH SCH ×2 (00:59→05:22)
[2016-05-05] MEDS ORDERED: Furosemide 40 MG/4 ML VIAL ONE ×3 (03:21→03:37)
[2016-05-05] MEDS ORDERED: Furosemide 40 MG/4 ML VIAL IVP ONE (03:38)
[2016-05-05] MEDS ORDERED: Furosemide 20 MG/2 ML VIAL IVP ONE (03:39)
[2016-05-05] MEDS ORDERED: *HR* Morphine 2 MG/ML SYRINGE IV ONE (03:54)
[2016-05-05] MEDS ORDERED: *HR* Morphine 2 MG/ML SYRINGE ONE (03:55)
--- NOTE | 2016-05-05 04:06 | Event Note ---
Date of Encounter: 05/05/16 Time of Encounter: 03:15 At 0315 A rapid response was called because patient's Oxygen Sats were in the 60s. Patient's O2 sat was brought up to 97% with bag mask ventilation and non- rebreather. Her oxygen sat began to drop again. Patient had suction, was given IV lasix and a portable chest xray was ordered, which showed significant pulmonary edema. The patient's oxygen sat continued to drop despite bag mask ventilation, and patient appeared to have no respiratory drive. At 0332 the patient's family was contacted and they were made aware of the situation. After continuous bag mask ventilation, at 0350 the patient was placed on non- rebreather. Patient began having agonal breathing pattern. At 0405 patient had no respirations, no palpable pulse, and pupils were fixed and dilated. Family was notified of patient's shortly thereafter. They wish for arrangements to be made with [facility]. time of : 404
--- NOTE | 2016-05-05 05:27 | Death Note ---
<Abdi Posadas - Last Filed: 05/05/16 06:26> Discharge Sum: Summary - Date and Time Date of admission: 04/19/16 18:36 - Summary Details: At 0315 A rapid response was called because patient's Oxygen Sats were in the 60s. Patient's O2 sat was brought up to 97% with bag mask ventilation and non- rebreather. Her oxygen sat began to drop again. Patient had suction, was given IV lasix and a portable chest xray was ordered, which showed significant pulmonary edema. The patient's oxygen sat continued to drop despite bag mask ventilation, and patient appeared to have no respiratory drive. At 0332 the patient's family was contacted and they were made aware of the situation. After continuous bag mask ventilation, at 0350 the patient was placed on non- rebreather. Patient began having agonal breathing pattern. At 0405 patient had no respirations, no palpable pulse, and pupils were fixed and dilated. Family was notified of patient's shortly thereafter. They wish for arrangements to be made with [facility]. time of : 404 - Additional Data Confirmation of as documented by pronouncing clinician: no pulse, no respirations, pupils fixed and dilated Family: contacted Additional persons at bedside: other (nursing staff, respiratory therapy) Attending/PCP notified?: No Attending physician: Tianna Prescott Was code activated?: No (Rapid Response activated) Autopsy requested?: No elevator examiner and adjuster notified?: No Organ bank notified?: No Advance directives: Yes (DNRCCA/DNI) Hospice patient?: No Discharge Sum: Diag - PCOD Probable Cause of : Acute respiratory failure Discharge Sum: Prov - Provider Primary care physician: Herbert Oswald MD Admitting clinician: Adriana Cruz Attending physician on admission: Adriana Cruz Consults: 04/21/16 15:31 Consult to Palliative Care [CONS] Routine Comment: Consulting Provider: Palliative Care Renee 04/24/16 09:30 Consult to Pulmonology [CONS] Routine Consulting Provider: [facility]m [facility] [place] Reason for Consult: please evaluate this patient with acute respiratory failure 2/2 worsening aspiration pneumonia/background bronchiectasis , COPD for any further recommendations in management. Thank you. Call Completed: Yes 04/25/16 07:45 Consult to Palliative Care [CONS] Routine Comment: Consulting Provider: Palliative Care Renee 05/02/16 07:25 Consult to Respiratory Therapy [CONS] Routine Reason for Consult: pulmonary toileting. please give flutter valve at the end of each breathing treatments. Call Completed: No Pronouncing clinician: Abdi Posadas - Attending Attestation Dr. Christiano Castano <Tianna Prescott E - Last Filed: 05/05/16 15:44> Discharge Sum: Summary - Date and Time Date of admission: 04/19/16 18:36 - Additional Data Attending physician: Tianna Prescott Discharge Sum: Prov - Provider Primary care physician: Herbert Oswald MD Consults: 04/21/16 15:31 Consult to Palliative Care [CONS] Routine Comment: Consulting Provider: Palliative Care Renee 04/24/16 09:30 Consult to Pulmonology [CONS] Routine Consulting Provider: [facility] [place] Reason for Consult: please evaluate this patient with acute respiratory failure 2/2 worsening aspiration pneumonia/background bronchiectasis , COPD for any further recommendations in management. Thank you. Call Completed: Yes 04/25/16 07:45 Consult to Palliative Care [CONS] Routine Comment: Consulting Provider: Palliative Care [place] 05/02/16 07:25 Consult to Respiratory Therapy [CONS] Routine Reason for Consult: pulmonary toileting. please give flutter valve at the end of each breathing treatments. Call Completed: No - Attending Attestation I agree with the documented findings, disposition and plan as described above by resident physician - Abdi Posadas.
== END 2016-05-05 04:05 | disposition expired | DRG 190 ==
LOC: 2NENU 13:06 → EMEROO 13:06 → 2NENU 16:31 → SUATTDRO 18:36
PROVIDERS: ADMIT Internal Medicine; ATTEND Internal Medicine